=== PATIENT | female | born 1995 | race Caucasian/White ===

== ENCOUNTER 2017-01-08 13:32 | Inpatient (IN) | payer BC, MEDICAID ==
--- NOTE | 2017-01-08 14:21 | ED ---
General Adult HPI - General Chief complaint: Psychiatric Symptoms Stated complaint: Suicidal thoughts Time Seen by Provider: 01/08/17 13:47 Source: patient, RN notes reviewed Mode of arrival: ambulatory Limitations: no limitations - History of Present Illness Initial comments: Patient 21-year-old female who presents emergency room today with chief complaint of suicidal ideation. She does admit that she been off her medications for the past 6 months. States she's having thoughts of hurting herself. Cutting. Patient denies any homicidal thoughts or plans. Denies any visual or auditory hallucinations. Denies any other physical. Patient denies any recent fever, chills, shortness of breath, chest pain, back pain, abdominal pain, nausea or vomiting, numbness or tingling, dysuria or hematuria, constipation or diarrhea, headaches or visual changes, or any other complaints. - Related Data Home Medications Medication Instructions Recorded Confirmed No Known Home Medications [No 01/08/17 01/08/17 Known Home Medications] Allergies Allergy/AdvReac Type Severity Reaction Status Date / Time morphine Allergy Rash/Hives Verified 01/08/17 14:41 buspirone HCl [From BuSpar] AdvReac NUMBNESS Verified 01/08/17 14:41 Review of Systems ROS Statement: Those systems with pertinent positive or pertinent negative responses have been documented in the HPI. ROS Other: All systems not noted in ROS Statement are negative. Past Medical History Past Medical History: Asthma, Thyroid Disorder Additional Past Medical History / Comment(s): Mild intermittent asthma, endometriosis, polycystic ovarian syndrome, states had a seizure when going through drug withdrawal; history of opioid addiction, states has scoliosis. History of Any Multi-Drug Resistant Organisms: None Reported Past Surgical History: Orthopedic Surgery Additional Past Surgical History / Comment(s): Laparoscopic ovarian cyst left removal, knee surgery left, Past Psychological History: Anxiety, Bipolar, Depression Smoking Status: Current every day smoker Past Alcohol Use History: None Reported Additional Past Alcohol Use History / Comment(s): She is a smoker of one half pack of cigarettes per day for 6 years. She has history of heroin abuse and has been off for 7-1/2 months. Prior to that she was abusing benzodiazepines and alcohol. Past Drug Use History: None Reported - Past Family History Father Family Medical History: Asthma Additional Family Medical History / Comment(s): Father is alive at age 44 with history of asthma and heart arrhythmia. Mother Family Medical History: Asthma, Deep Vein Thrombosis (DVT), Thyroid Disorder Additional Family Medical History / Comment(s): States she thinks her mother has a history of DVT. Sister(s) Family Medical History: No Reported History Additional Family Medical History / Comment(s): She has 3 sisters with no major medical problems. She does not have any brothers. She does not have any children. General Exam - General Exam Comments Initial Comments: General: The patient is awake and alert, in no distress, and does not appear acutely ill. Eye: Pupils are equal, round and reactive to light, extra-ocular movements are intact. No nystagmus. There is normal conjunctiva bilaterally. No signs of icterus. Ears, nose, mouth and throat: There are moist mucous membranes and no oral lesions. Neck: The neck is supple, there is no tenderness or JVD. Cardiovascular: There is a regular rate and rhythm. No murmur, rub or gallop is appreciated. Respiratory: Lungs are clear to auscultation, respirations are non-labored, breath sounds are equal. No wheezes, stridor, rales, or rhonchi. Musculoskeletal: Normal ROM, no tenderness. Strength 5/5. Sensation intact. Pulses equal bilaterally 2+. Neurological: A&O x 3. CN II-XII intact, There are no obvious motor or sensory deficits. Coordination appears grossly intact. Speech is normal. Skin: Skin is warm and dry and no rashes or lesions are noted. Psychiatric: Cooperative. Limitations: no limitations Course Vital Signs 01/08/17 13:39 Temperature 97.2 F L Pulse Rate 70 Respiratory 20 Rate Blood Pressure 115/77 O2 Sat by Pulse 100 Oximetry Medical Decision Making - Medical Decision Making Patient has been evaluated by mental health and they've recommend the patient be admitted. Patient believes herself. Disposition Clinical Impression: Suicidal ideation Disposition: TRANSFER TO PSYCH HOSP/UNIT Condition: Stable Time of Disposition: 15:30
[2017-01-08 15:44] LABS: Appearance,Urine Cloudy (Clear); Bilirubin,Urine Negative (Negative); Glucose,Urine (UA) Negative (Negative); Ketones,Urine Negative (Negative); Leukocyte Esterase,Urine Negative (Negative); Mucus,Urine Rare /hpf; Nitrite,Urine Negative (Negative); PH, Urine 6.5 (5.0-8.0); Particle Count 4359; Protein,Urine Negative (Negative); RBC,Urine 2 /hpf (0-5); Specific Gravity,Urine 1.013 (1.001-1.035); Squamous Epithelial Cell,Urine 7 /hpf (0-4); UA Billing (MACRO vs. MICRO) MICRO; Urobilinogen,Urine <2.0 mg/dL (<2.0); WBC,Urine 2 /hpf (0-5)
[2017-01-08] MEDS ORDERED: ACETAMINOPHEN TAB 325 MG TAB PO PRN (16:53)
[2017-01-08] MEDS ORDERED: MAG HYDROX/AL HYDROX/SIMETH 30 ML CUP PO PRN (16:53)
[2017-01-08] MEDS: NICOTINE 7MG/24HR PATCH TRANSDERM SCH (19:22)
[2017-01-09] MEDS: GABAPENTIN 100 MG CAP PO SCH ×3 (08:49→21:07)
[2017-01-09] MEDS: ESCITALOPRAM 20 MG TAB PO SCH (08:50)
[2017-01-09] MEDS: hydrOXYzine PAMOATE 25 MG CAP PO PRN ×2 (08:50→23:13)
[2017-01-09] MEDS: NICOTINE 7MG/24HR PATCH TRANSDERM SCH (09:04)
[2017-01-09 09:30] LABS: Aty Lym Flag Slight; CH 30.2; CHCM 33.1; HCT 42.9 % (34.0-46.0); HDW 2.41; HGB 14.2 gm/dL (11.4-16.0); MCH 30.3 pg (25.0-35.0); MCHC 33.2 g/dL (31.0-37.0); MCV 91.5 fL (80.0-100.0); Mean Platelet Volume 6.5; RBC 4.69 m/uL (3.80-5.40); RDW 12.5 % (11.5-15.5); WBC 4.3 k/uL (4.0-11.0)
[2017-01-09 09:49] LABS: ALT 22 U/L (9-52); AST 22 U/L (14-36); Alkaline Phosphatase 39 U/L (38-126); Anion Gap 14 mmol/L; Blood Urea Nitrogen 17 mg/dL (7-17); Calcium 9.9 mg/dL (8.4-10.2); Carbon Dioxide 25 mmol/L (22-30); Chloride 101 mmol/L (98-107); Glucose 96 mg/dL (74-99); Non-African American GFR(MDRD) >60 (>60 ml/min/1.73 sqM); Potassium 4.3 mmol/L (3.5-5.1); Sodium 140 mmol/L (137-145); Total Bilirubin 0.5 mg/dL (0.2-1.3)
[2017-01-09 09:50] LABS: Add Differential Manual Differential
[2017-01-09 09:53] LABS: Manual Review Performed; Nucleated Red Blood Cells 0 /100 WBC (0-0); RBC Morphology Normal; Total Cells Counted 100
[2017-01-09 11:04] VITALS: RESP 18
[2017-01-09] MEDS: NICOTINE POLACRILEX 2 MG GUM BUCCAL PRN ×3 (12:18→20:26)
--- NOTE | 2017-01-09 13:30 | P.CONS ---
History of Present Illness - Reason for Consult Consult date: 01/09/17 Medical management Requesting physician: Misha Bennett - Chief Complaint Severe depression, suicidal ideation, asthma, hypothyroidism, migraine and - History of Present Illness 21-year-old female with no primary care physician who was in the hospital last in January 2016 for severe depression and suicidal ideation has done well since till the last few weeks the patient has been struggling repeatedly with more suicidal ideation and increased depression for financial and social element. Patient have thought about hurting herself cutting herself has not done anything so far denies any hallucination or delusion. Patient presented to the emergency department at [facility] with above symptoms was seen and evaluated by the psych nurse and decided to admit patient to the hospital. Review of Systems Constitutional: Reports fatigue, Reports malaise, Denies as per HPI, Denies anorexia, Denies chills, Denies chronic headaches, Denies chronic pain, Denies daytime sleepiness, Denies fever, Denies lethargy, Denies night sweats, Denies poor appetite, Denies sweats, Denies weakness, Denies weight gain, Denies weight loss Eyes: bilateral as per HPI Ears: deny: decreased hearing Ears, nose, mouth and throat: Denies as per HPI, Denies ant. neck pain, Denies bleeding gums, Denies dental pain, Denies dysphagia, Denies epistaxis, Denies headache, Denies hoarseness, Denies mouth pain, Denies nasal congestion, Denies nasal discharge, Denies neck fullness/pressure, Denies neck lump, Denies nose pain, Denies odynophagia, Denies post-nasal drip, Denies sinus pain, Denies sinus pressure, Denies swelling in mouth, Denies swelling in throat, Denies sore throat, Denies vertigo, Denies voice changes Cardiovascular: Denies as per HPI, Denies chest pain, Denies claudication, Denies decreased exercise tolerance, Denies dyspnea on exertion, Denies edema, Denies high blood pressure, Denies irregular heart beat, Denies leg edema, Denies lightheadedness, Denies orthopnea, Denies palpitations, Denies paroxysmal nocturnal dyspnea, Denies phlebitis, Denies rapid heart beat, Denies shortness of breath, Denies syncope Respiratory: Reports wheezing, Denies as per HPI, Denies congestion, Denies cough, Denies cough with sputum, Denies dyspnea, Denies excessive sputum, Denies hemoptysis, Denies home oxygen, Denies pain, Denies pain on inspiration, Denies pleurisy, Denies respiratory infections, Denies sleep apnea, Denies snoring Gastrointestinal: Reports dyspepsia, Reports indigestion, Reports nausea, Denies as per HPI, Denies abdominal pain, Denies belching, Denies bloating, Denies BRBPR, Denies change in bowel habits, Denies coffee ground emesis, Denies constipation, Denies diarrhea, Denies early satiety, Denies excessive gas , Denies heartburn, Denies hematemesis, Denies hematochezia, Denies jaundice, Denies lactose intolerance, Denies loss of appetite, Denies melena, Denies vomiting Genitourinary: Denies as per HPI, Denies abnormal vaginal bleeding, Denies decreased libido, Denies difficulty conceiving, Denies difficulty voiding, Denies dysmenorrhea, Denies dyspareunia, Denies dysuria, Denies flank pain, Denies genital sores, Denies hematuria, Denies hot flashes, Denies incomplete emptying, Denies kidney stones, Denies menorrhagia, Denies mixed incontinence, Denies nocturia, Denies pelvic pain, Denies post void dribbling, Denies , Denies prolapse symptoms, Denies stress incontinence, Denies urge incontinence , Denies urgency, Denies urinary frequency, Denies vaginal discharge, Denies vaginal dryness, Denies vaginal itching, Denies vaginal odor Menstruation: Denies as per HPI, Denies amenorrhea, Denies amenorrhea on BC, Denies currently menstrual, Denies cycle < 21 days, Denies cycle > 35 days, Denies cycle variable, Denies menses 1-7 days, Denies menses 8 or > days, Denies menses variable, Denies period heavy, Denies period light, Denies period normal, Denies period spotting, Denies post hysterectomy, Denies postmenopausal , Denies premenarcheal Musculoskeletal: Denies as per HPI, Denies arm numbness/tingling, Denies atrophy , Denies fractures, Denies frequent falls, Denies gait dysfunction, Denies hot joints, Denies leg numbness/tingling, Denies limitation of motion, Denies loss of height, Denies low back pain, Denies morning stiffness, Denies muscle cramps , Denies muscle weakness, Denies myalgias, Denies neck pain, Denies neck stiffness, Denies prior amputations, Denies redness of joints, Denies shooting arm pain, Denies shooting leg pain Integumentary: Denies as per HPI, Denies acne, Denies boils, Denies brittle nails, Denies change in hair/nails, Denies color changes, Denies darkening of skin, Denies depigmentation, Denies dryness, Denies foot/leg ulcers, Denies growths, Denies hirsutism, Denies lesions, Denies onychomycosis, Denies pruritus , Denies rash, Denies sores, Denies striae, Denies unusual bruising, Denies wounds Neurological: Denies as per HPI, Denies aphasia, Denies ataxia, Denies balance difficulties, Denies burning pain, Denies change in mentation, Denies change in smell/taste, Denies change in speech, Denies confusion, Denies convulsions, Denies double vision, Denies gait dysfunction, Denies head injury, Denies headaches, Denies hearing difficulties, Denies lack of coordination, Denies loss of vision, Denies memory loss, Denies migraines, Denies motor disturbance, Denies numbness, Denies paralysis, Denies paresthesias, Denies seizures, Denies sensory deficit, Denies spasticity, Denies syncope, Denies tic, Denies tingling , Denies transient paralysis, Denies tremors, Denies vertigo, Denies weakness, Denies visual changes Psychiatric: Reports anhedonia, Reports anxiety, Reports depression, Reports difficulty concentrating, Reports mood swings, Reports paranoia, Reports sadness /tearfulness, Denies as per HPI, Denies anxiety attacks, Denies change in appetite, Denies change in libido, Denies change in sleep habits, Denies confusion, Denies disorientation, Denies hallucinations, Denies hopelessness, Denies hypersomnia, Denies insomnia, Denies irritability, Denies memory loss, Denies sleep disturbances, Denies suicidal ideation Endocrine: Reports excessive sweating, Reports excessive thirst, Reports fatigue , Denies as per HPI, Denies cold intolerance, Denies deepening of the voice, Denies flushing, Denies heat intolerance, Denies high blood sugars, Denies increase in ring/shoe/hat size, Denies low blood sugars, Denies nocturia, Denies palpitations, Denies polydipsia, Denies polyphagia, Denies polyuria, Denies proptosis, Denies recent glucocorticoid use, Denies thyroid mass, Denies weight change Hematologic/Lymphatic: Reports easy bruising, Denies as per HPI, Denies easy bleeding, Denies lymphadenopathy, Denies lymphedema, Denies thrombophilia Allergic/Immunologic: Reports allergic rhinitis, Denies as per HPI, Denies anaphylaxis, Denies angioedema, Denies gluten intolerance, Denies persistent infections, Denies seasonal allergies, Denies urticaria, Denies wheezing Past Medical History Past Medical History: Asthma, Thyroid Disorder Additional Past Medical History / Comment(s): Mild intermittent asthma, endometriosis, polycystic ovarian syndrome, states had a seizure when going through drug withdrawal; history of opioid addiction, states has scoliosis. History of Any Multi-Drug Resistant Organisms: None Reported Past Surgical History: Orthopedic Surgery Additional Past Surgical History / Comment(s): Laparoscopic ovarian cyst left removal, knee surgery left, Past Psychological History: Anxiety, Bipolar, Depression Smoking Status: Current every day smoker Past Alcohol Use History: None Reported Additional Past Alcohol Use History / Comment(s): She is a smoker of one half pack of cigarettes per day for 6 years. She has history of heroin abuse and has been off for 7-1/2 months. Prior to that she was abusing benzodiazepines and alcohol. Past Drug Use History: None Reported - Past Family History Father Family Medical History: Asthma Additional Family Medical History / Comment(s): Father is alive at age 44 with history of asthma and heart arrhythmia. Mother Family Medical History: Asthma, Deep Vein Thrombosis (DVT), Thyroid Disorder Additional Family Medical History / Comment(s): States she thinks her mother has a history of DVT. Sister(s) Family Medical History: No Reported History Additional Family Medical History / Comment(s): She has 3 sisters with no major medical problems. She does not have any brothers. She does not have any children. Medications and Allergies Home Medications Medication Instructions Recorded Confirmed Type No Known Home Medications [No 01/08/17 01/08/17 History Known Home Medications] Allergies Allergy/AdvReac Type Severity Reaction Status Date / Time morphine Allergy Rash/Hives Verified 01/08/17 16:50 buspirone HCl [From BuSpar] AdvReac NUMBNESS Verified 01/08/17 16:50 Physical Exam Vitals: Vital Signs Temp Pulse Pulse Resp BP BP Pulse Ox 01/09/17 11:03 73 18 100/55 01/09/17 06:52 98.2 F 85 16 105/54 01/08/17 15:55 97.6 F 92 16 103/65 98 Intake and Output 01/08/17 01/09/17 01/09/17 22:59 06:59 14:59 Other: Weight 59.5 kg Patient Weight 01/10/17 06:59 Weight 59.5 kg - Constitutional General appearance: no average body habitus, cooperative, no disheveled, no mild distress, no morbidly obese, no no acute distress, no obese, no severe distress, thin - EENT Eyes: no abnormal pupil, no anicteric sclerae, no disc margins sharp, no edentulous, no EOMI, no PERRLA, no fundus normal, no photophobia, no dentition normal, no poor dentition, no ptosis, no scleral icterus, normal appearance ENT: no hard of hearing, no hearing grossly normal, no NA/AT, normal oropharynx , no other, no pharyngeal erythema, no thrush, no tonsillar exudates, no tonsillar swelling Ears: bilateral: normal - Neck Neck: no lymphadenopathy, normal ROM, no other, no rigidity, no stridor, no thyromegaly Carotids: bilateral: upstroke normal Thyroid: bilateral: normal size - Respiratory Respiratory: bilateral: diminished, dullness - Cardiovascular Rhythm: regular Heart sounds: normal: S1, S2 Abnormal Heart Sounds: systolic murmur, S3 Gallop - Gastrointestinal General gastrointestinal: no absent bowel sounds, decreased bowel sounds, no distended, no hepatomegaly, no hyperactive bowel sounds, no normal bowel sounds , no organomegaly, no rigid, no scaphoid, soft, no splenomegaly, no tenderness, no umbilical hernia, no ventral hernia - Integumentary Integumentary: no calor, no cellulitis, no cyanotic, no decreased turgor, no flushed, no jaundiced, normal, no normal turgor, pale, rash, no ulcer - Neurologic Neurologic: CNII-XII intact - Musculoskeletal Musculoskeletal: gait normal, generalized weakness, no strength equal bilaterally, no right sided weakness, no left sided weakness - Psychiatric Psychiatric: A&O x's 3 Results CBC & Chem 7: 01/09/17 08:56 01/09/17 08:56 Assessment and Plan Plan: 1 severe depression and suicidal ideation: Patient was admitted to the hospital seen psych was started on gabapentin along with Lexapro. 2 asthma with no flareup lately no sign and symptoms will continue rescue inhaler as needed. 3 chronic history of migraine with recurrent episode no flareup lately patient was on Inderal previously, she has an appointment with neurology in 2 weeks does 1 a start on any medication in the meanwhile. 4 smoking: Smoking cessation was addressed patient is on Nicorette gum at this point. 5 history of hypothyroidism: Thyroid has been normal with testing this time was normal no need for medication. 6 GERD: Patient be on Pepcid 20 mg as needed. CODE STATUS: Full code. Dr. Bennett thank you very much for the consult more than happy to see this patient along with you if I can be any further help to please let me know thank you.
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
[2017-01-10 00:23] VITALS: BP 132/78; PULSE 88; TEMP 97.6
[2017-01-10] MEDS: ESCITALOPRAM 20 MG TAB PO SCH (08:14)
[2017-01-10] MEDS: GABAPENTIN 100 MG CAP PO SCH (08:15)
[2017-01-10] MEDS ORDERED: FAMOTIDINE 20 MG TAB PO SCH (09:00)
[2017-01-10] MEDS: NICOTINE POLACRILEX 2 MG GUM BUCCAL PRN ×2 (09:09→12:19)
[2017-01-10 10:19] VITALS: BMI 22.5
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
== END 2017-01-10 13:01 | disposition home or self-care (01) | DRG 885 ==
LOC: EC 13:32 → 3MHU 15:48
PROVIDERS: ADMIT Psychiatry & Neurology Psychiatry; ATTEND Psychiatry & Neurology Psychiatry
DX: F33.9 Major depressive disorder, recurrent, unspecified (principal); R45.851 Suicidal ideations; M41.9 Scoliosis, unspecified; F43.10 Post-traumatic stress disorder, unspecified; F60.3 Borderline personality disorder; F90.9 Attention-deficit hyperactivity disorder, unspecified type; F41.0 Panic disorder [episodic paroxysmal anxiety]; F16.99 Hallucinogen use, unspecified with unspecified hallucinogen-induced disorder; F11.29 Opioid dependence with unspecified opioid-induced disorder; F12.99 Cannabis use, unspecified with unspecified cannabis-induced disorder; J45.20 Mild intermittent asthma, uncomplicated; F41.9 Anxiety disorder, unspecified; F19.99 Other psychoactive substance use, unspecified with unspecified psychoactive substance-induced disorder; S50.812A Abrasion of left forearm, initial encounter; E28.2 Polycystic ovarian syndrome; N80.9 Endometriosis, unspecified; K21.9 Gastro-esophageal reflux disease without esophagitis; T42.6X6A Underdosing of other antiepileptic and sedative-hypnotic drugs, initial encounter; T43.226A Underdosing of selective serotonin reuptake inhibitors, initial encounter; E03.9 Hypothyroidism, unspecified; G43.909 Migraine, unspecified, not intractable, without status migrainosus; M79.7 Fibromyalgia; F17.210 Nicotine dependence, cigarettes, uncomplicated; Z71.6 Tobacco abuse counseling; Z71.51 Drug abuse counseling and surveillance of drug abuser; Z56.0 Unemployment, unspecified; Z62.810 Personal history of physical and sexual abuse in childhood; Z87.42 Personal history of other diseases of the female genital tract; Z86.69 Personal history of other diseases of the nervous system and sense organs; Z91.5 Personal history of self-harm; Z82.5 Family history of asthma and other chronic lower respiratory diseases; Z63.79 Other stressful life events affecting family and household; Z62.820 Parent-biological child conflict; Z81.1 Family history of alcohol abuse and dependence; Z82.49 Family history of ischemic heart disease and other diseases of the circulatory system; Z83.49 Family history of other endocrine, nutritional and metabolic diseases; Z88.5 Allergy status to narcotic agent; Z88.8 Allergy status to other drugs, medicaments and biological substances; Z91.14 Patient's other noncompliance with medication regimen; X78.9XXA Intentional self-harm by unspecified sharp object, initial encounter
CPT/HCPCS: 80053; 80306; 81001; 81025; 84443; 85025; 99285

== ENCOUNTER 2017-03-12 03:38 | Emergency (ER) | payer BC, OTHER ==
[2017-03-12] MEDS ORDERED: CIPROFLOXACIN HCL 500 MG TAB PO STA (04:10)
[2017-03-12] MEDS ORDERED: IBUPROFEN 600 MG TAB PO STA (04:10)
[2017-03-12 04:29] LABS: Appearance,Urine Cloudy (Clear); Bilirubin,Urine Negative (Negative); Glucose,Urine (UA) Negative (Negative); Ketones,Urine Negative (Negative); Leukocyte Esterase,Urine Large (Negative); Mucus,Urine Rare /hpf; Nitrite,Urine Negative (Negative); Particle Count 9073; Protein,Urine 1+ (Negative); RBC,Urine 68 /hpf (0-5); Specific Gravity,Urine 1.011 (1.001-1.035); Squamous Epithelial Cell,Urine 1 /hpf (0-4); UA Billing (MACRO vs. MICRO) MICRO; Urobilinogen,Urine <2.0 mg/dL (<2.0); WBC,Urine 179 /hpf (0-5)
--- NOTE | 2017-03-12 05:05 | ED ---
Abdominal Pain HPI - General Chief Complaint: Abdominal Pain Stated Complaint: Back Pain Time Seen by Provider: 03/12/17 04:01 Source: patient Mode of arrival: wheelchair Limitations: no limitations - History of Present Illness Initial Comments: This patient is a 21-year-old woman who presents with concern that she believes she is having urinary tract infection. She states that she has had previous urinary tract infections that remind her of the symptoms she is having now. She states that nearly a week ago she began feeling that she had to use the bathroom all the time. She also noted a little bit of suprapubic pressure. She started also having a little bit of dysuria over the past few days and presents because over the past few hours she has started developing left flank pain. Patient denies fever or chills. She is not having any change in bowel movements. No vaginal discharge or dyspareunia. MD Complaint: abdominal pain, flank pain -: days(s) Location: suprapubic, L flank Radiation: none Migration to: no migration Severity: moderate Quality: aching Consistency: constant Improves With: nothing Worsens With: nothing Associated Symptoms: dysuria - Related Data Home Medications Medication Instructions Recorded Confirmed Propranolol LA [Inderal LA] 60 mg PO DAILY 03/12/17 03/12/17 Previous Rx's Medication Instructions Recorded Escitalopram [Lexapro] 20 mg PO DAILY #30 tab 01/10/17 Gabapentin [Neurontin] 100 mg PO TID #45 cap 01/10/17 hydrOXYzine PAMOATE [Vistaril] 25 mg PO DAILY PRN #30 capsule 01/10/17 Ciprofloxacin HCl [Cipro] 500 mg PO Q12HR #14 tablet 03/12/17 Allergies Allergy/AdvReac Type Severity Reaction Status Date / Time morphine Allergy Rash/Hives Verified 03/02/17 19:00 buspirone HCl [From BuSpar] AdvReac NUMBNESS Verified 03/02/17 19:00 Review of Systems ROS Statement: Those systems with pertinent positive or pertinent negative responses have been documented in the HPI. ROS Other: All systems not noted in ROS Statement are negative. Constitutional: Denies: fever, chills Respiratory: Denies: cough, dyspnea Cardiovascular: Denies: chest pain, palpitations, edema Gastrointestinal: Reports: abdominal pain. Denies: nausea, vomiting, diarrhea, melena, hematochezia Genitourinary: Reports: as per HPI, urgency, dysuria, hematuria. Denies: discharge, abnormal menses, dyspareunia Musculoskeletal: Reports: as per HPI, back pain Skin: Denies: rash Neurological: Denies: headache Past Medical History Past Medical History: Asthma, Thyroid Disorder Additional Past Medical History / Comment(s): Mild intermittent asthma, endometriosis, polycystic ovarian syndrome, states had a seizure when going through drug withdrawal; history of opioid addiction, states has scoliosis. History of Any Multi-Drug Resistant Organisms: None Reported Past Surgical History: Orthopedic Surgery Additional Past Surgical History / Comment(s): Laparoscopic ovarian cyst left removal, knee surgery left, Past Psychological History: Anxiety, Bipolar, Depression Smoking Status: Current every day smoker Past Alcohol Use History: None Reported Additional Past Alcohol Use History / Comment(s): She is a smoker of one half pack of cigarettes per day for 6 years. She has history of heroin abuse and has been off for 7-1/2 months. Prior to that she was abusing benzodiazepines and alcohol. Past Drug Use History: None Reported - Past Family History Father Family Medical History: Asthma Additional Family Medical History / Comment(s): Father is alive at age 44 with history of asthma and heart arrhythmia. Mother Family Medical History: Asthma, Deep Vein Thrombosis (DVT), Thyroid Disorder Additional Family Medical History / Comment(s): States she thinks her mother has a history of DVT. Sister(s) Family Medical History: No Reported History Additional Family Medical History / Comment(s): She has 3 sisters with no major medical problems. She does not have any brothers. She does not have any children. General Exam Limitations: no limitations General appearance: alert, in no apparent distress Head exam: Present: atraumatic, normocephalic Respiratory exam: Present: normal lung sounds bilaterally. Absent: respiratory distress, wheezes, rales, rhonchi, stridor Cardiovascular Exam: Present: regular rate, normal rhythm, normal heart sounds. Absent: systolic murmur, diastolic murmur, rubs, gallop GI/Abdominal exam: Present: soft, normal bowel sounds. Absent: distended, tenderness, guarding, rebound, rigid, mass, pulsatile mass Extremities exam: Present: normal inspection, normal capillary refill. Absent: pedal edema, calf tenderness Back exam: Present: normal inspection. Absent: CVA tenderness (R), CVA tenderness (L) Neurological exam: Present: alert Skin exam: Present: warm, dry, intact, normal color. Absent: rash Course Vital Signs 03/12/17 03/12/17 03:49 05:24 Temperature 97.9 F 97.6 F Pulse Rate 75 76 Respiratory 18 16 Rate Blood Pressure 105/55 108/57 O2 Sat by Pulse 98 98 Oximetry Medical Decision Making - Lab Data Lab Results 03/12/17 03/12/17 Range/Units 04:18 04:18 Urine Color Yellow Urine Appearance Cloudy H (Clear) Urine pH 7.0 (5.0-8.0) Ur Specific [place] 1.011 (1.001-1.035) Urine Protein 1+ H (Negative) Urine Glucose (UA) Negative (Negative) Urine Ketones Negative (Negative) Urine Blood Moderate H (Negative) Urine Nitrite Negative (Negative) Urine Bilirubin Negative (Negative) Urine Urobilinogen <2.0 (<2.0) mg/dL Ur Leukocyte Esterase Large H (Negative) Urine RBC 68 H (0-5) /hpf Urine WBC 179 H (0-5) /hpf Urine WBC Clumps Many H (None) /hpf Ur Squamous Epith Cells 1 (0-4) /hpf Urine Mucus Rare H (None) /hpf Urine HCG, Qual Not Detected (Not Detectd) Disposition Clinical Impression: Urinary tract infection Disposition: HOME SELF-CARE Condition: Fair Instructions: Urinary Tract Infection in Women (ED) Prescriptions: Ciprofloxacin HCl [Cipro] 500 mg PO Q12HR #14 tablet Referrals: Monica Cage MD [Primary Care Provider] - 1-2 days
[2017-03-12 05:26] VITALS: BP 108/57; PULSE 76; RESP 16; TEMP 97.6
== END 2017-03-12 05:26 | disposition home or self-care (01) ==
LOC: EC 03:38
DX: N39.0 Urinary tract infection, site not specified (principal); F17.210 Nicotine dependence, cigarettes, uncomplicated; Z79.899 Other long term (current) drug therapy; Z88.5 Allergy status to narcotic agent; Z88.8 Allergy status to other drugs, medicaments and biological substances
CPT/HCPCS: 81001; 81025; 99284

== ENCOUNTER 2017-04-29 18:20 | Emergency (ER) | payer BC, OTHER ==
[2017-04-29 18:32] VITALS: BP 126/70; PULSE 87; RESP 18; TEMP 97.8
[2017-04-29] MEDS ORDERED: DICYCLOMINE 10 MG/ML 2 ML AMP IM STA (18:43)
[2017-04-29] MEDS ORDERED: ONDANSETRON ODT 4 MG TAB PO STA (18:43)
--- NOTE | 2017-04-29 18:47 | ED ---
Nausea/Vomiting/Diarrhea HPI - General Chief complaint: Nausea/Vomiting/Diarrhea Stated complaint: POSS FOOD POISENING Time Seen by Provider: 04/29/17 18:34 Source: patient, RN notes reviewed Mode of arrival: ambulatory Limitations: no limitations - History of Present Illness Initial comments: 21-year-old female presents emergency Department chief complaint of nausea vomiting and diarrhea that started 2 hours ago. Patient states that last night they went to [employer] and she denied her hamburger so she put it in her purse. Patient states that she drove around for about 2-3 hours when she got home she put it in the fridge. Patient states when she woke up this morning she ate a hamburger and a few hours later she started nausea vomiting and diarrhea. Patient states that her abdomen feels crampy. Patient denies any fever or chills. Patient states that she's not currently having any other symptoms. Patient states that she was concerned due to the vomiting and diarrhea so she thought that she should be evaluated. Patient denies any recent fever, chills, shortness of breath, chest pain, back pain, numbness or tingling , dysuria or hematuria, constipation, headaches or visual changes, or any other current symptoms. - Related Data Home Medications Medication Instructions Recorded Confirmed Propranolol LA [Inderal LA] 60 mg PO DAILY 03/12/17 03/12/17 Previous Rx's Medication Instructions Recorded Escitalopram [Lexapro] 20 mg PO DAILY #30 tab 01/10/17 Gabapentin [Neurontin] 100 mg PO TID #45 cap 01/10/17 hydrOXYzine PAMOATE [Vistaril] 25 mg PO DAILY PRN #30 capsule 01/10/17 Ciprofloxacin HCl [Cipro] 500 mg PO Q12HR #14 tablet 03/12/17 Dicyclomine [Bentyl] 10 mg PO TID #20 capsule 04/29/17 Ondansetron Odt [Zofran ODT] 4 mg PO Q8HR PRN #20 tab 04/29/17 Allergies Allergy/AdvReac Type Severity Reaction Status Date / Time morphine Allergy Rash/Hives Verified 03/02/17 19:00 buspirone HCl [From BuSpar] AdvReac NUMBNESS Verified 03/02/17 19:00 Review of Systems ROS Statement: Those systems with pertinent positive or pertinent negative responses have been documented in the HPI. ROS Other: All systems not noted in ROS Statement are negative. Past Medical History Past Medical History: Asthma, Thyroid Disorder Additional Past Medical History / Comment(s): Mild intermittent asthma, endometriosis, polycystic ovarian syndrome, states had a seizure when going through drug withdrawal; history of opioid addiction, states has scoliosis. History of Any Multi-Drug Resistant Organisms: None Reported Past Surgical History: Orthopedic Surgery Additional Past Surgical History / Comment(s): Laparoscopic ovarian cyst left removal, knee surgery left, Past Psychological History: Anxiety, Bipolar, Depression Smoking Status: Current every day smoker Past Alcohol Use History: None Reported, Rare Past Drug Use History: None Reported - Past Family History Father Family Medical History: Asthma Additional Family Medical History / Comment(s): Father is alive at age 44 with history of asthma and heart arrhythmia. Mother Family Medical History: Asthma, Deep Vein Thrombosis (DVT), Thyroid Disorder Additional Family Medical History / Comment(s): States she thinks her mother has a history of DVT. Sister(s) Family Medical History: No Reported History Additional Family Medical History / Comment(s): She has 3 sisters with no major medical problems. She does not have any brothers. She does not have any children. General Exam Limitations: no limitations General appearance: alert, in no apparent distress ENT exam: Present: normal exam, mucous membranes moist Neck exam: Present: normal inspection. Absent: tenderness, meningismus, lymphadenopathy Respiratory exam: Present: normal lung sounds bilaterally. Absent: respiratory distress, wheezes, rales, rhonchi, stridor Cardiovascular Exam: Present: regular rate, normal rhythm, normal heart sounds. Absent: systolic murmur, diastolic murmur, rubs, gallop, clicks GI/Abdominal exam: Present: soft, normal bowel sounds. Absent: distended, tenderness, guarding, rebound, rigid Neurological exam: Present: alert, oriented X3 Psychiatric exam: Present: normal affect, normal mood Skin exam: Present: warm, dry, intact, normal color. Absent: rash Course Vital Signs 04/29/17 18:26 Temperature 97.8 F Pulse Rate 87 Respiratory 18 Rate Blood Pressure 126/70 O2 Sat by Pulse 99 Oximetry Medical Decision Making - Medical Decision Making 21-year-old female presents to the emergency Department chief complaint of nausea vomiting and diarrhea. This patient's vital signs are stable. Patient' s history is consistent with concern for gastroenteritis. We did discuss is other cause he did discuss return parameters discussed follow-up and all the patient's questions. They state Felice they're in agreement with plan. They will be discharged home. Disposition Clinical Impression: Nausea & vomiting, Diarrhea Disposition: HOME SELF-CARE Condition: Stable Instructions: Acute Nausea and Vomiting (ED) Additional Instructions: Please use medication as discussed. Please follow up with family doctor if symptoms have not improved over the next two days. Please return to the emergency room if your symptoms increase or worsen or for any other concerns. Prescriptions: Dicyclomine [Bentyl] 10 mg PO TID #20 capsule Ondansetron Odt [Zofran ODT] 4 mg PO Q8HR PRN #20 tab PRN Reason: Nausea Referrals: Jackie Dawson MD [Primary Care Provider] - 1-2 days Time of Disposition: 18:46
== END 2017-04-29 19:09 | disposition home or self-care (01) ==
LOC: EC 18:20
DX: R11.2 Nausea with vomiting, unspecified (principal); R19.7 Diarrhea, unspecified; R10.9 Unspecified abdominal pain; F17.200 Nicotine dependence, unspecified, uncomplicated; Z79.899 Other long term (current) drug therapy; Z88.5 Allergy status to narcotic agent; Z88.8 Allergy status to other drugs, medicaments and biological substances
CPT/HCPCS: 99283; 96372; J0500

== ENCOUNTER 2017-06-18 11:50 | Emergency (ER) | payer BC, OTHER ==
[2017-06-18] MEDS ORDERED: KETOROLAC 30 MG/ML 1 ML VIAL IVP STA (12:41)
[2017-06-18] MEDS ORDERED: SODIUM CHLORIDE 0.9% 500 ML IV STA (12:41)
--- NOTE | 2017-06-18 12:45 | ED ---
General Adult HPI - General Chief complaint: Abdominal Pain Stated complaint: Lower abdominal pain Time Seen by Provider: 06/18/17 12:00 Source: patient, RN notes reviewed Mode of arrival: ambulatory Limitations: no limitations - History of Present Illness Initial comments: This is a 21-year-old female presents emergency Department complaining that she has had left lower quadrant abdominal pain for a week and a half. Patient states she is scheduled for an ultrasound later in the week but she states the pain was getting too bad so she decided to come the emergency department. Patient denies any dysuria hematuria urinary frequency. Patient states she is not . Patient states she's been having sex only with her boyfriend for the last 2 years. Patient states she hasn't had sex in the last 2 weeks because of the pain. Patient denies any fever or chills. Patient denies any nausea vomiting diarrhea. Patient denies any back pain. Patient states she has a history of ovarian cyst - Related Data Home Medications Medication Instructions Recorded Confirmed Albuterol Inhaler [Ventolin Hfa 1 - 2 puff INHALATION RT-Q6H PRN 06/18/17 Inhaler] Ergocalciferol (Vitamin D2) 50,000 unit PO SA 06/18/17 06/18/17 [Vitamin D2] Previous Rx's Medication Instructions Recorded Escitalopram [Lexapro] 20 mg PO DAILY #30 tab 01/10/17 hydrOXYzine PAMOATE [Vistaril] 25 mg PO DAILY PRN #30 capsule 01/10/17 Hydrocodone/Acetaminophen [Termo 1 each PO Q6HR PRN #10 tab 06/18/17 5-325] Allergies Allergy/AdvReac Type Severity Reaction Status Date / Time morphine Allergy Rash/Hives Verified 06/18/17 12:52 buspirone HCl [From BuSpar] AdvReac NUMBNESS Verified 06/18/17 12:52 Review of Systems ROS Statement: Those systems with pertinent positive or pertinent negative responses have been documented in the HPI. ROS Other: All systems not noted in ROS Statement are negative. Past Medical History Past Medical History: Asthma, Thyroid Disorder Additional Past Medical History / Comment(s): Mild intermittent asthma, endometriosis, polycystic ovarian syndrome, states had a seizure when going through drug withdrawal; history of opioid addiction, states has scoliosis. History of Any Multi-Drug Resistant Organisms: None Reported Past Surgical History: Orthopedic Surgery Additional Past Surgical History / Comment(s): Laparoscopic ovarian cyst left removal, knee surgery left, Past Psychological History: Anxiety, Bipolar, Depression Smoking Status: Current every day smoker Past Alcohol Use History: None Reported, Rare Past Drug Use History: None Reported - Past Family History Father Family Medical History: Asthma Additional Family Medical History / Comment(s): Father is alive at age 44 with history of asthma and heart arrhythmia. Mother Family Medical History: Asthma, Deep Vein Thrombosis (DVT), Thyroid Disorder Additional Family Medical History / Comment(s): States she thinks her mother has a history of DVT. Sister(s) Family Medical History: No Reported History Additional Family Medical History / Comment(s): She has 3 sisters with no major medical problems. She does not have any brothers. She does not have any children. General Exam - General Exam Comments Initial Comments: GENERAL: Patient is well-developed and well-nourished. Patient is nontoxic and well- hydrated and is in mild distress. ENT: Neck is soft and supple. No significant lymphadenopathy is noted. Oropharynx is clear. Moist mucous membranes. Neck has full range of motion without eliciting any pain. EYES: The sclera were anicteric and conjunctiva were pink and moist. Extraocular movements were intact and pupils were equal round and reactive to light. Eyelids were unremarkable. PULMONARY: Unlabored respirations. Good breath sounds bilaterally. No audible rales rhonchi or wheezing was noted. CARDIOVASCULAR: There is a regular rate and rhythm without any murmurs gallops or rubs. ABDOMEN: Patient's left lower quadrant abdominal pain. No palpable organomegaly was noted. There is no palpable pulsatile mass. SKIN: Skin is clear with no lesions or rashes and otherwise unremarkable. NEUROLOGIC: Patient is alert and oriented x3. Cranial nerves II through XII are grossly intact. Motor and sensory are also intact. Normal speech, volume and content. Symmetrical smile. MUSCULOSKELETAL: Normal extremities with adequate strength and full range of motion. No lower extremity swelling or edema. No calf tenderness. LYMPHATICS: No significant lymphadenopathy is noted PSYCHIATRIC: Normal psychiatric evaluation. Normal interpersonal interactions appears functionally intact in deals appropriately with others. No signs of depression. No signs of anxiety. Limitations: no limitations Course Vital Signs 06/18/17 06/18/17 12:17 13:50 Temperature 97.2 F L Pulse Rate 109 H 88 Respiratory 18 16 Rate Blood Pressure 128/70 112/61 O2 Sat by Pulse 100 99 Oximetry Medical Decision Making - Medical Decision Making Ultrasound shows a left ovarian cyst that appears to be hemorrhagic in nature. There is no torsion at this time. - Lab Data Result diagrams: 06/18/17 12:40 06/18/17 12:40 Lab Results 06/18/17 06/18/17 06/18/17 Range/Units 12:40 12:40 12:40 WBC 7.0 (4.0-11.0) k/uL RBC 4.69 (3.80-5.40) m/uL Hgb 14.3 (11.4-16.0) gm/dL Hct 42.6 (34.0-46.0) % MCV 90.8 (80.0-100.0) fL MCH 30.4 (25.0-35.0) pg MCHC 33.5 (31.0-37.0) g/dL RDW 13.9 (11.5-15.5) % Plt Count 302 (150-450) k/uL Neutrophils % 48 % Lymphocytes % 39 % Monocytes % 7 % Eosinophils % 1 % Basophils % 1 % Neutrophils # 3.4 (1.3-7.7) k/uL Lymphocytes # 2.8 (1.0-4.8) k/uL Monocytes # 0.5 (0-1.0) k/uL Eosinophils # 0.1 (0-0.7) k/uL Basophils # 0.1 (0-0.2) k/uL Sodium 139 (137-145) mmol/L Potassium 4.3 (3.5-5.1) mmol/L Chloride 105 (98-107) mmol/L Carbon Dioxide 25 (22-30) mmol/L Anion Gap 9 mmol/L BUN 15 (7-17) mg/dL Creatinine 0.68 (0.52-1.04) mg/dL Est GFR (MDRD) Af Amer >60 (>60 ml/min/1.73 sqM) Est GFR (MDRD) Non-Af >60 (>60 ml/min/1.73 sqM) Glucose 67 L (74-99) mg/dL Calcium 9.7 (8.4-10.2) mg/dL Total Bilirubin 0.2 (0.2-1.3) mg/dL AST 22 (14-36) U/L ALT 28 (9-52) U/L Alkaline Phosphatase 42 (38-126) U/L Total Protein 6.9 (6.3-8.2) g/dL Albumin 4.3 (3.5-5.0) g/dL Amylase 53 (30-110) U/L Lipase 136 (23-300) U/L Urine Color Urine Appearance (Clear) Urine pH (5.0-8.0) Ur Specific [place] (1.001-1.035) Urine Protein (Negative) Urine Glucose (UA) (Negative) Urine Ketones (Negative) Urine Blood (Negative) Urine Nitrite (Negative) Urine Bilirubin (Negative) Urine Urobilinogen (<2.0) mg/dL Ur Leukocyte Esterase (Negative) Urine HCG, Qual (Not Detectd) Urine Opiates Screen Not Detected (NotDetected) Ur Oxycodone Screen Not Detected (NotDetected) Urine Methadone Screen Not Detected (NotDetected) Ur Propoxyphene Screen Not Detected (NotDetected) Ur Barbiturates Screen Not Detected (NotDetected) U Tricyclic Antidepress Not Detected (NotDetected) Ur Phencyclidine Scrn Not Detected (NotDetected) Ur Amphetamines Screen Not Detected (NotDetected) U Methamphetamines Scrn Not Detected (NotDetected) U Benzodiazepines Scrn Not Detected (NotDetected) Urine Cocaine Screen Not Detected (NotDetected) U Marijuana (THC) Screen Not Detected (NotDetected) 06/18/17 06/18/17 Range/Units 12:40 12:40 WBC (4.0-11.0) k/uL RBC (3.80-5.40) m/uL Hgb (11.4-16.0) gm/dL Hct (34.0-46.0) % MCV (80.0-100.0) fL MCH (25.0-35.0) pg MCHC (31.0-37.0) g/dL RDW (11.5-15.5) % Plt Count (150-450) k/uL Neutrophils % % Lymphocytes % % Monocytes % % Eosinophils % % Basophils % % Neutrophils # (1.3-7.7) k/uL Lymphocytes # (1.0-4.8) k/uL Monocytes # (0-1.0) k/uL Eosinophils # (0-0.7) k/uL Basophils # (0-0.2) k/uL Sodium (137-145) mmol/L Potassium (3.5-5.1) mmol/L Chloride (98-107) mmol/L Carbon Dioxide (22-30) mmol/L Anion Gap mmol/L BUN (7-17) mg/dL Creatinine (0.52-1.04) mg/dL Est GFR (MDRD) Af Amer (>60 ml/min/1.73 sqM) Est GFR (MDRD) Non-Af (>60 ml/min/1.73 sqM) Glucose (74-99) mg/dL Calcium (8.4-10.2) mg/dL Total Bilirubin (0.2-1.3) mg/dL AST (14-36) U/L ALT (9-52) U/L Alkaline Phosphatase (38-126) U/L Total Protein (6.3-8.2) g/dL Albumin (3.5-5.0) g/dL Amylase (30-110) U/L Lipase (23-300) U/L Urine Color Light Yellow Urine Appearance Clear (Clear) Urine pH 6.0 (5.0-8.0) Ur Specific [place] 1.006 (1.001-1.035) Urine Protein Negative (Negative) Urine Glucose (UA) Negative (Negative) Urine Ketones Negative (Negative) Urine Blood Negative (Negative) Urine Nitrite Negative (Negative) Urine Bilirubin Negative (Negative) Urine Urobilinogen <2.0 (<2.0) mg/dL Ur Leukocyte Esterase Negative (Negative) Urine HCG, Qual Not Detected (Not Detectd) Urine Opiates Screen (NotDetected) Ur Oxycodone Screen (NotDetected) Urine Methadone Screen (NotDetected) Ur Propoxyphene Screen (NotDetected) Ur Barbiturates Screen (NotDetected) U Tricyclic Antidepress (NotDetected) Ur Phencyclidine Scrn (NotDetected) Ur Amphetamines Screen (NotDetected) U Methamphetamines Scrn (NotDetected) U Benzodiazepines Scrn (NotDetected) Urine Cocaine Screen (NotDetected) U Marijuana (THC) Screen (NotDetected) Disposition Clinical Impression: Hemorrhagic ovarian cyst Disposition: HOME SELF-CARE Condition: Good Instructions: Ovarian Cyst (ED) Additional Instructions: Patient should follow-up with Dr. Preston as soon as possible Prescriptions: Hydrocodone/Acetaminophen [Termo 5-325] 1 each PO Q6HR PRN #10 tab PRN Reason: Pain Time of Disposition: 14:43
[2017-06-18 13:03] LABS: Basophils # (A) 0.1 k/uL (0-0.2); Basophils % (A) 1 %; CH 30.7; CHCM 33.9; Eosinophils # (A) 0.1 k/uL (0-0.7); Eosinophils % (A) 1 %; HCT 42.6 % (34.0-46.0); HDW 2.38; HGB 14.3 gm/dL (11.4-16.0); Luc # (Auto) 0.22; Luc % (Auto) 3; Lymphocytes # (A) 2.8 k/uL (1.0-4.8); Lymphocytes % (A) 39 %; MCH 30.4 pg (25.0-35.0); MCHC 33.5 g/dL (31.0-37.0); MCV 90.8 fL (80.0-100.0); Monocytes # (A) 0.5 k/uL (0-1.0); Monocytes % (A) 7 %; Neutrophils # (A) 3.4 k/uL (1.3-7.7); Neutrophils % (A) 48 %; RBC 4.69 m/uL (3.80-5.40); RDW 13.9 % (11.5-15.5); WBC (Perox) 6.91
[2017-06-18 13:06] LABS: Appearance,Urine Clear (Clear); Bilirubin,Urine Negative (Negative); Glucose,Urine (UA) Negative (Negative); Ketones,Urine Negative (Negative); Leukocyte Esterase,Urine Negative (Negative); Nitrite,Urine Negative (Negative); Protein,Urine Negative (Negative); Specific Gravity,Urine 1.006 (1.001-1.035); UA Billing (MACRO vs. MICRO) CHEM; Urobilinogen,Urine <2.0 mg/dL (<2.0)
[2017-06-18 13:20] LABS: ALT 28 U/L (9-52); AST 22 U/L (14-36); Alkaline Phosphatase 42 U/L (38-126); Amylase 53 U/L (30-110); Anion Gap 9 mmol/L; Blood Urea Nitrogen 15 mg/dL (7-17); Calcium 9.7 mg/dL (8.4-10.2); Carbon Dioxide 25 mmol/L (22-30); Chloride 105 mmol/L (98-107); Glucose 67 mg/dL (74-99); Non-African American GFR(MDRD) >60 (>60 ml/min/1.73 sqM); Potassium 4.3 mmol/L (3.5-5.1); Sodium 139 mmol/L (137-145); Total Bilirubin 0.2 mg/dL (0.2-1.3); Total Protein 6.9 g/dL (6.3-8.2)
[2017-06-18] MEDS ORDERED: traMADol 50 MG TAB PO STA (13:35)
--- NOTE | 2017-06-18 14:34 | US ---
EXAMINATION TYPE: US transvaginal plus Dopplers DATE OF EXAM: 06/18/2017 COMPARISON: 05/17/2016. CLINICAL HISTORY: 21-year-old female Pain. LLQ pain, irregular cycles TECHNIQUE: Transvaginal (TV). Color Doppler and spectral waveform analysis of the ovarian arteries a nd veins. Date of LMP: 05/17/2017 FINDINGS: Uterus: Anteverted measuring 7.1 x 4.0 x 4.6 cm Endometrial Stripe: 1.1 cm. The IUD has been removed since the prior 05/17/2016 exam. Right Ovary: 3.4 x 1.9 x 1.7 cm for a volume of 6.5 mL. Follicular changes present. There is satisfa ctory arterial and venous flow. Left Ovary: 4.4 x 4.9 x 4.8 cm and largest at 67 mL. This is secondary to a 4.3 cm thick rind comple x cyst with internal low-level echoes. No internal vascularity. This appears to be exophytic from the majority of the more normal-appearing ovary. This shows satisfactory arterial and venous flow. Otherwise, no evident adnexal abnormality or cul-de-sac free fluid. IMPRESSION: 1. No sonographic evidence for ovarian torsion. 2. However, there is a large 4.3 cm complex cyst exophytic from the left ovary. This has a thick rind and internal low-level echoes. A hemorrhagic cyst is favored. Recommend follow-up in 6-8 weeks to en sure resolution and exclude a cystic epithelial neoplasm.
[2017-06-18 14:51] VITALS: BP 111/61; PULSE 87; RESP 14; TEMP 98.2
== END 2017-06-18 14:53 | disposition home or self-care (01) ==
LOC: EC 11:50
DX: N83.202 Unspecified ovarian cyst, left side (principal); F17.200 Nicotine dependence, unspecified, uncomplicated; Z79.899 Other long term (current) drug therapy; Z88.5 Allergy status to narcotic agent; Z88.8 Allergy status to other drugs, medicaments and biological substances
CPT/HCPCS: 36415; 80053; 82150; 83690; 85025; 81003; 81025; 80306; 93975; 76830; 99284; 96374; 96361; J1885

== ENCOUNTER → 2017-06-30 | Outpatient (CLI) | payer BC, OTHER ==
[2017-06-30 15:30] LABS: Basophils # (A) 0.1 k/uL (0-0.2); Basophils % (A) 1 %; CH 30.6; CHCM 33.7; Eosinophils # (A) 0.2 k/uL (0-0.7); Eosinophils % (A) 3 %; HCT 43.1 % (34.0-46.0); HDW 2.37; Luc # (Auto) 0.25; Luc % (Auto) 4; Lymphocytes % (A) 49 %; MCH 29.5 pg (25.0-35.0); MCHC 32.4 g/dL (31.0-37.0); MCV 91.3 fL (80.0-100.0); Monocytes # (A) 0.3 k/uL (0-1.0); Monocytes % (A) 5 %; Neutrophils # (A) 2.4 k/uL (1.3-7.7); Neutrophils % (A) 38 %; RBC 4.73 m/uL (3.80-5.40); RDW 14.1 % (11.5-15.5); WBC 6.2 k/uL (3.8-10.6); WBC (Perox) 6.04
== END | disposition home or self-care (01) ==
LOC: LABPAT 15:11
PROVIDERS: ATTEND Obstetrics & Gynecology
DX: Z01.812 Encounter for preprocedural laboratory examination (principal)
CPT/HCPCS: 36415; 85025

== ENCOUNTER 2017-07-13 06:55 | Day surgery (SDC) | payer BC, OTHER ==
[2017-07-12 08:21] VITALS: BMI 23.3
[~2017-07-13 06:55] MED LIST: DEXAMETHASONE SOD PHOSPHATE 10 MG/ML 1 ML VIAL IV ONE; HYDROmorphone 1 MG/ML 1 ML SYRINGE IVP PRN; LACTATED RINGERS 1,000 ML IV SCH; ONDANSETRON 4 MG/2 ML VIAL IVP ONE; Pre Op ABX Message 1 EACH MISC MISCELLANE ONE
[2017-07-13] MEDS ORDERED: LIDOCAINE 1% 20 ML VIAL (10MG/ML) FOR IV START INTRADERMA ONE (07:36)
[2017-07-13] MEDS: MIDAZOLAM 2 MG/2 ML VIAL IV ONE ×2 (07:48→07:57)
--- NOTE | 2017-07-13 07:56 | P.HPOB ---
History of Present Illness H&P Date: 07/13/17 Chief Complaint: Pelvic pain, ovarian cyst 22 year old G0 presents with pelvic pain and ovarian cyst. She has a history of endometriosis and likely has an endometrioma on her ovary. Review of Systems All systems: negative Constitutional: Denies chills, Denies fever Eyes: denies blurred vision, denies pain Ears, nose, mouth and throat: Denies headache, Denies sore throat Cardiovascular: Denies chest pain, Denies shortness of breath Respiratory: Denies cough Gastrointestinal: Denies abdominal pain, Denies diarrhea, Denies nausea, Denies vomiting Genitourinary: Denies dysuria, Denies hematuria Musculoskeletal: Denies myalgias Integumentary: Denies pruritus, Denies rash Neurological: Denies numbness, Denies weakness Psychiatric: Denies anxiety, Denies depression Endocrine: Denies fatigue, Denies weight change Past Medical History Past Medical History: Asthma, Thyroid Disorder Additional Past Medical History / Comment(s): Mild intermittent asthma, endometriosis, polycystic ovarian syndrome, states had a seizure when going through drug withdrawal; history of opioid addiction, states has scoliosis. History of Any Multi-Drug Resistant Organisms: None Reported Past Surgical History: Orthopedic Surgery Additional Past Surgical History / Comment(s): LAPAROSCOPIC REMOVAL LT OVARIAN CYST X 2, knee surgery left, Past Anesthesia/Blood Transfusion Reactions: No Reported Reaction Smoking Status: Current every day smoker - Past Family History Father Family Medical History: Asthma Additional Family Medical History / Comment(s): Father is alive at age 44 with history of asthma and heart arrhythmia. Mother Family Medical History: Asthma, Deep Vein Thrombosis (DVT), Thyroid Disorder Additional Family Medical History / Comment(s): States she thinks her mother has a history of DVT. Sister(s) Family Medical History: No Reported History Additional Family Medical History / Comment(s): She has 3 sisters with no major medical problems. She does not have any brothers. She does not have any children. Medications and Allergies Home Medications Medication Instructions Recorded Confirmed Type Escitalopram [Lexapro] 20 mg PO DAILY #30 tab 01/10/17 07/13/17 Rx hydrOXYzine PAMOATE [Vistaril] 25 mg PO DAILY PRN #30 capsule 01/10/17 07/13/17 Rx Albuterol Inhaler [Ventolin Hfa 1 - 2 puff INHALATION RT-Q6H PRN 06/18/17 History Inhaler] Ergocalciferol (Vitamin D2) 50,000 unit PO SA 06/18/17 07/13/17 History [Vitamin D2] Allergies Allergy/AdvReac Type Severity Reaction Status Date / Time buspirone HCl [From BuSpar] AdvReac NUMBNESS Verified 07/12/17 08:08 Exam Osteopathic Statement: *. No significant issues noted on an osteopathic structural exam other than those noted in the History and Physical/Consult. - Vital Signs Vital signs: Vital Signs Temp Pulse Resp BP Pulse Ox 07/13/17 07:09 98.2 F 100 16 109/72 98 Heart: Regular rate and rhythm Lungs: Clear to auscultation bilaterally Abdomen: Soft, nontender Extremities: Negative Homans sign Assessment and Plan (1) Endometriosis Status: Acute (2) Ovarian cyst Status: Acute Plan: 1. laparoscopy with aspiration of ovarian cyst and cauterization of endometriosis
[2017-07-13] MEDS ORDERED: PROPOFOL 10 MG/ML 20 ML VIAL IV ONE (08:03)
[2017-07-13] MEDS ORDERED: LIDOCAINE 1% INJ 10MG/ML (20 ML MDV) ONE (08:03)
[2017-07-13] MEDS ORDERED: NEOSTIGMINE 1 MG/ML 10 ML VIAL ONE (08:03)
[2017-07-13] MEDS ORDERED: GLYCOPYRROLATE 0.2 MG/ML 2 ML VIAL ONE (08:03)
[2017-07-13] MEDS ORDERED: fentaNYL (PF) 50 MCG/ML 2 ML AMP ONE (08:03)
[2017-07-13] MEDS ORDERED: KETOROLAC 30 MG/ML 1 ML VIAL ONE (08:03)
[2017-07-13] MEDS ORDERED: SUCCINYLCHOLINE CHLORIDE 100 MG/5 ML SYR IV ONE (08:03)
[2017-07-13] MEDS ORDERED: ROCURONIUM BROMIDE 10 MG/ML 10 ML VIAL IV ONE (08:03)
[2017-07-13] MEDS ORDERED: MIDAZOLAM 2 MG/2 ML VIAL ONE (08:03)
[2017-07-13] MEDS ORDERED: BUPIVACAINE (PF) 0.5% 30 ML VIAL SQ ONE ×2 (08:23)
--- NOTE | 2017-07-13 08:52 | P.OP ---
Date of Procedure: 07/13/17 Preoperative Diagnosis: 1. pelvic pain 2. ovarian cyst 3. endometriosis Postoperative Diagnosis: 1.pelvic pain 2. endometriosis 3. pelvic adhesions Procedure(s) Performed: Diagnostic laparoscopy with lysis of adhesions Implants: Anesthesia: DIONEA Surgeon: Lizet Preston Estimated Blood Loss (ml): 2 IV fluids (ml): 200 Urine output (ml): 15 Pathology: none sent Condition: stable Disposition: PACU Indications for Procedure: Operative Findings: There were no cysts seen on either ovary, there were some filmy adhesions surrounding both ovaries and fallopian tubes. There was some endometriosis evident seen in the posterior cul-de-sac. Description of Procedure: She is taken the operating room where general anesthesia was obtained without difficulty. She is prepped and draped in normal sterile fashion dorsal lithotomy position, legs placed in the Harris stirrups. [place] speculum placed in vagina and anterior lip of cervix was grasped with single-tooth tenaculum. The uterus sounded to 8 cm and the kroner manipulator was placed. Attention was then turned to the abdomen and gloves were changed. A 10 mm infraumbilical incision was made with scalpel 10 mm optical trocar was placed under direct visualization. 5 mm suprapubic incision was made with the scalpel and a 5 mm optical trocar was placed under direct visualization. Survey of the pelvis revealed normal uterus and normal fallopian tubes and normal ovaries. There was no cyst seen on either ovary. There was some filmy adhesions surrounding both fallopian tubes and ovaries. There were some adhesions in the posterior cul-de-sac and small amount of endometriosis in the posterior cul-de-sac. These filmy adhesions were taken down using blunt dissection and the cautery. The endometriosis was burned using the cautery. Hemostasis was assured. All instruments were then removed from the abdomen and vagina. The 10 mm infraumbilical incision was closed 0 Vicryl and the fascial layer and 4-0 Vicryl subcuticular fashion and millimeters incision was closed using 4-0 Vicryl subcu clear fashion. Patient tolerated the procedure well sponge and instrument counts are correct at 2 and she was taken to recovery room in stable condition.
[2017-07-13 09:11] VITALS: TEMP 97.2
[2017-07-13] MEDS ORDERED: HYDROmorphone 1 MG/ML 1 ML SYRINGE IVP ONE ×2 (09:21→09:26)
[2017-07-13] MEDS ORDERED: traMADol 50 MG TAB PO ONE (10:04)
[2017-07-13 10:07] VITALS: BP 101/63; PULSE 90; RESP 18
== END 2017-07-13 10:29 | disposition home or self-care (01) ==
LOC: OR 06:55
PROVIDERS: ATTEND Obstetrics & Gynecology
DX: N73.6 Female pelvic peritoneal adhesions (postinfective) (principal); N80.1 Endometriosis of ovary; J45.909 Unspecified asthma, uncomplicated; E07.9 Disorder of thyroid, unspecified; F17.200 Nicotine dependence, unspecified, uncomplicated; F41.9 Anxiety disorder, unspecified; E28.2 Polycystic ovarian syndrome; Z79.899 Other long term (current) drug therapy; Z88.8 Allergy status to other drugs, medicaments and biological substances
CPT/HCPCS: 81025; 58660; J2250; J1100; J2710; J2405; J2001; J3010; J1885; J1170; J0330; J2704

== ENCOUNTER 2017-08-03 12:22 | Inpatient (IN) | payer BC, OTHER ==
[2017-08-03] MEDS ORDERED: methylPREDNISolone SOD SUCCI 125 MG/2 ML VIAL IV STA (12:51)
[2017-08-03] MEDS ORDERED: MAGNESIUM SULFATE-D5W PMX 1 GM in DEXTROSE/WATER 1 100ML.BAG IVPB STA (12:51)
[2017-08-03] MEDS ORDERED: IPRATROPIUM-ALBUTEROL 3 ML NEB INHALATION STA ×2 (12:51→14:21)
--- NOTE | 2017-08-03 12:54 | ED ---
SOB HPI - General Chief Complaint: Shortness of Breath Stated Complaint: Difficulty Breathing Time Seen by Provider: 08/03/17 12:42 Source: patient, RN notes reviewed Mode of arrival: ambulatory Limitations: no limitations - History of Present Illness Initial Comments: This is a 22-year-old female history of asthma states she had the onset shortness his ago. She was seen in the emergency department yesterday and offered admission but refuses a time due to a small child she states Home. He states he back today because she's having persistent shortness of breath and cough no overt fevers chills or sweats no phlegm production. She states she did recently quit smoking. She has no chest pain or other symptoms report. She also denies any chance being at this time MD Complaint: shortness of breath, cough - Related Data Home Medications Medication Instructions Recorded Confirmed Albuterol Inhaler [Ventolin Hfa 1 - 2 puff INHALATION RT-Q6H PRN 06/18/17 Inhaler] Ergocalciferol (Vitamin D2) 50,000 unit PO SA 06/18/17 08/03/17 [Vitamin D2] Ipratropium-Albuterol Nebulize 3 ml INHALATION RT-QID 08/03/17 08/03/17 [Duoneb 0.5 mg-3 mg/3 ml Soln] Previous Rx's Medication Instructions Recorded Escitalopram [Lexapro] 20 mg PO DAILY #30 tab 01/10/17 hydrOXYzine PAMOATE [Vistaril] 25 mg PO DAILY PRN #30 capsule 01/10/17 traMADol HCL [Ultram] 50 mg PO Q4HR PRN #30 tab 07/13/17 Levofloxacin [Levaquin] 750 mg PO DAILY #6 tab 08/02/17 Promethazine/Dextromethorphan 5 ml PO TID #120 ml 08/02/17 [Phenergan DM Syrup] predniSONE 50 mg PO DAILY #7 tablet 08/02/17 Allergies Allergy/AdvReac Type Severity Reaction Status Date / Time buspirone HCl [From BuSpar] AdvReac NUMBNESS Verified 08/03/17 13:32 Review of Systems ROS Statement: Those systems with pertinent positive or pertinent negative responses have been documented in the HPI. ROS Other: All systems not noted in ROS Statement are negative. Past Medical History Past Medical History: Asthma, Thyroid Disorder Additional Past Medical History / Comment(s): Mild intermittent asthma, endometriosis, polycystic ovarian syndrome, history of opioid addiction, states has scoliosis. History of Any Multi-Drug Resistant Organisms: None Reported Past Surgical History: Orthopedic Surgery Additional Past Surgical History / Comment(s): LAPAROSCOPIC REMOVAL LT OVARIAN CYST X 3, knee surgery left, Past Anesthesia/Blood Transfusion Reactions: No Reported Reaction Past Psychological History: Anxiety, Bipolar, Depression Smoking Status: Former smoker Past Alcohol Use History: None Reported Past Drug Use History: None Reported - Past Family History Father Family Medical History: Asthma Additional Family Medical History / Comment(s): Father is alive at age 44 with history of asthma and heart arrhythmia. Mother Family Medical History: Asthma, Deep Vein Thrombosis (DVT), Thyroid Disorder Additional Family Medical History / Comment(s): States she thinks her mother has a history of DVT. Sister(s) Family Medical History: No Reported History Additional Family Medical History / Comment(s): She has 3 sisters with no major medical problems. She does not have any brothers. She does not have any children. General Exam - General Exam Comments Initial Comments: This is a well-developed well-nourished awake alert oriented 3 female Limitations: no limitations General appearance: alert, anxious, in distress Head exam: Present: atraumatic, normocephalic, normal inspection Eye exam: Present: normal appearance, PERRL, EOMI. Absent: scleral icterus, conjunctival injection, periorbital swelling ENT exam: Present: mucous membranes moist, other (Dull TMs bilaterally more so on the left than the right no erythema) Neck exam: Present: normal inspection. Absent: tenderness, meningismus, lymphadenopathy Respiratory exam: Present: wheezes, accessory muscle use, decreased breath sounds. Absent: respiratory distress, rales, rhonchi, stridor Cardiovascular Exam: Present: regular rate, normal rhythm, normal heart sounds. Absent: systolic murmur, diastolic murmur, rubs, gallop, clicks GI/Abdominal exam: Present: soft, normal bowel sounds. Absent: distended, tenderness, guarding, rebound, rigid Extremities exam: Present: normal inspection, full ROM, normal capillary refill. Absent: tenderness, pedal edema, joint swelling, calf tenderness Back exam: Present: normal inspection Neurological exam: Present: alert, oriented X3, CN II-XII intact Psychiatric exam: Present: normal affect, normal mood Skin exam: Present: warm, dry, intact, normal color. Absent: rash Course Vital Signs 08/03/17 08/03/17 08/03/17 12:35 12:56 13:05 Temperature 98.9 F Pulse Rate 91 84 88 Respiratory 20 Rate Blood Pressure 143/70 O2 Sat by Pulse 95 Oximetry 08/03/17 08/03/17 14:39 14:50 Temperature Pulse Rate 82 84 Respiratory Rate Blood Pressure O2 Sat by Pulse Oximetry - Reevaluation(s) Reevaluation #1: 08/03/17 15:10 Reevaluation the patient after initial treatment revealed no definite improvement. She is very dyspneic so short of breath and diffuse wheezing. Medical Decision Making - Medical Decision Making I did reevaluate the patient again she is not improving at all with the aggressive treatment in the emergency department. I did a long discussion with her and her significant other patient be admitted I did discuss the case with Dr. Fung. - Lab Data Result diagrams: 08/03/17 13:00 08/03/17 13:00 Lab Results 08/03/17 08/03/17 08/03/17 Range/Units 13:00 13:00 13:00 WBC 16.9 H (3.8-10.6) k/uL RBC 4.43 (3.80-5.40) m/uL Hgb 13.3 (11.4-16.0) gm/dL Hct 39.8 (34.0-46.0) % MCV 89.8 (80.0-100.0) fL MCH 30.0 (25.0-35.0) pg MCHC 33.4 (31.0-37.0) g/dL RDW 13.1 (11.5-15.5) % Plt Count 310 (150-450) k/uL Neutrophils % 73 % Lymphocytes % 20 % Monocytes % 5 % Eosinophils % 0 % Basophils % 0 % Neutrophils # 12.3 H (1.3-7.7) k/uL Lymphocytes # 3.3 (1.0-4.8) k/uL Monocytes # 0.9 (0-1.0) k/uL Eosinophils # 0.1 (0-0.7) k/uL Basophils # 0.0 (0-0.2) k/uL PT (9.0-12.0) sec INR (<1.2) APTT (22.0-30.0) sec D-Dimer (<0.60) mg/L FEU Sodium 140 (137-145) mmol/L Potassium 4.3 (3.5-5.1) mmol/L Chloride 106 (98-107) mmol/L Carbon Dioxide 23 (22-30) mmol/L Anion Gap 11 mmol/L BUN 14 (7-17) mg/dL Creatinine 0.70 (0.52-1.04) mg/dL Est GFR (MDRD) Af Amer >60 (>60 ml/min/1.73 sqM) Est GFR (MDRD) Non-Af >60 (>60 ml/min/1.73 sqM) Glucose 92 (74-99) mg/dL Calcium 9.7 (8.4-10.2) mg/dL Magnesium 1.6 (1.6-2.3) mg/dL Total Bilirubin 0.2 (0.2-1.3) mg/dL AST 18 (14-36) U/L ALT 32 (9-52) U/L Alkaline Phosphatase 43 (38-126) U/L Total Creatine Kinase 72 (30-135) U/L CK-MB (CK-2) 0.7 (0.0-2.4) ng/mL CK-MB (CK-2) Rel Index 1.0 Troponin I <0.012 (0.000-0.034) ng/mL NT-Pro-B Natriuret Pep pg/mL Total Protein 6.9 (6.3-8.2) g/dL Albumin 4.1 (3.5-5.0) g/dL 08/03/17 08/03/17 08/03/17 Range/Units 13:00 13:00 13:00 WBC (3.8-10.6) k/uL RBC (3.80-5.40) m/uL Hgb (11.4-16.0) gm/dL Hct (34.0-46.0) % MCV (80.0-100.0) fL MCH (25.0-35.0) pg MCHC (31.0-37.0) g/dL RDW (11.5-15.5) % Plt Count (150-450) k/uL Neutrophils % % Lymphocytes % % Monocytes % % Eosinophils % % Basophils % % Neutrophils # (1.3-7.7) k/uL Lymphocytes # (1.0-4.8) k/uL Monocytes # (0-1.0) k/uL Eosinophils # (0-0.7) k/uL Basophils # (0-0.2) k/uL PT 10.3 (9.0-12.0) sec INR 1.0 (<1.2) APTT 21.9 L (22.0-30.0) sec D-Dimer 0.22 (<0.60) mg/L FEU Sodium (137-145) mmol/L Potassium (3.5-5.1) mmol/L Chloride (98-107) mmol/L Carbon Dioxide (22-30) mmol/L Anion Gap mmol/L BUN (7-17) mg/dL Creatinine (0.52-1.04) mg/dL Est GFR (MDRD) Af Amer (>60 ml/min/1.73 sqM) Est GFR (MDRD) Non-Af (>60 ml/min/1.73 sqM) Glucose (74-99) mg/dL Calcium (8.4-10.2) mg/dL Magnesium (1.6-2.3) mg/dL Total Bilirubin (0.2-1.3) mg/dL AST (14-36) U/L ALT (9-52) U/L Alkaline Phosphatase (38-126) U/L Total Creatine Kinase (30-135) U/L CK-MB (CK-2) (0.0-2.4) ng/mL CK-MB (CK-2) Rel Index Troponin I (0.000-0.034) ng/mL NT-Pro-B Natriuret Pep 99 pg/mL Total Protein (6.3-8.2) g/dL Albumin (3.5-5.0) g/dL - EKG Data -: EKG Interpreted by [facility] EKG shows normal: sinus rhythm, axis, intervals, QRS complexes, ST-T waves ( Sinus rhythm of 82 TN interval 150 to QRS duration 80 QT since QTC of 388/453 st -t wave changes.) Rate: normal - Radiology Data Radiology results: report reviewed (X-ray shows no evidence of acute infiltrate. ), image reviewed Critical Care Time Critical Care Time: Yes Critical Care Time: 31 minutes of critical care time which includes initial presentation with history physical labs x-rays multiple re-evaluations the patient. Discussed with the patient and her significant other regarding findings. Discussion with the admitting physician admission orders and documentation of the above. Disposition Clinical Impression: Asthma with status asthmaticus, Failure of outpatient treatment Disposition: ADMITTED IP TO THIS [facility] Condition: Stable Referrals: Jackie Dawson MD [Primary Care Provider] - 1-2 days
[2017-08-03 13:19] LABS: Basophils % (A) 0 %; CH 29.8; CHCM 33.3; Eosinophils # (A) 0.1 k/uL (0-0.7); Eosinophils % (A) 0 %; HCT 39.8 % (34.0-46.0); HDW 2.67; HGB 13.3 gm/dL (11.4-16.0); Luc % (Auto) 2; Lymphocytes # (A) 3.3 k/uL (1.0-4.8); Lymphocytes % (A) 20 %; MCHC 33.4 g/dL (31.0-37.0); MCV 89.8 fL (80.0-100.0); Mean Platelet Volume 6.7; Monocytes # (A) 0.9 k/uL (0-1.0); Monocytes % (A) 5 %; Neutrophils # (A) 12.3 k/uL (1.3-7.7); Neutrophils % (A) 73 %; RBC 4.43 m/uL (3.80-5.40); RDW 13.1 % (11.5-15.5); WBC 16.9 k/uL (3.8-10.6); WBC (Perox) 16.96
[2017-08-03 13:30] LABS: Prothrombin Time 10.3 sec (9.0-12.0)
[2017-08-03 13:36] LABS: ALT 32 U/L (9-52); AST 18 U/L (14-36); Alkaline Phosphatase 43 U/L (38-126); Anion Gap 11 mmol/L; Blood Urea Nitrogen 14 mg/dL (7-17); Calcium 9.7 mg/dL (8.4-10.2); Carbon Dioxide 23 mmol/L (22-30); Chloride 106 mmol/L (98-107); Glucose 92 mg/dL (74-99); Magnesium 1.6 mg/dL (1.6-2.3); Non-African American GFR(MDRD) >60 (>60 ml/min/1.73 sqM); Partial Thromboplastin Time 21.9 sec (22.0-30.0); Potassium 4.3 mmol/L (3.5-5.1); Sodium 140 mmol/L (137-145); Total Bilirubin 0.2 mg/dL (0.2-1.3); Total Protein 6.9 g/dL (6.3-8.2)
--- NOTE | 2017-08-03 13:47 | XR ---
EXAMINATION TYPE: XR chest 2V DATE OF EXAM: 08/03/2017 COMPARISON: 08/02/2017 TECHNIQUE: PA and lateral views submitted. HISTORY: Shortness of breath and cough FINDINGS: The lungs are clear and there is no pneumothorax, pleural effusion, or focal pneumonia. IMPRESSION: 1. No acute process.
[2017-08-03 13:50] LABS: Creatine Kinase 72 U/L (30-135)
[2017-08-03 14:03] LABS: Creatine Kinase MB 0.7 ng/mL (0.0-2.4); Troponin I <0.012 ng/mL (0.000-0.034)
[2017-08-03] MEDS ORDERED: NON-FORMULARY DRUG (Promethazine/Dextromethorphan [Phenergan Dm Syrup] 5 ML) PO SCH (16:00)
[2017-08-03] MEDS ORDERED: IPRATROPIUM-ALBUTEROL 3 ML NEB INHALATION SCH (16:00)
[2017-08-03 16:18] LABS: Appearance,Urine Cloudy (Clear); Bacteria,Urine Rare /hpf; Bilirubin,Urine Negative (Negative); Glucose,Urine (UA) Negative (Negative); Ketones,Urine Negative (Negative); Leukocyte Esterase,Urine Small (Negative); Mucus,Urine Rare /hpf; Nitrite,Urine Negative (Negative); PH, Urine 6.5 (5.0-8.0); Particle Count 12855; Protein,Urine Negative (Negative); RBC,Urine 3 /hpf (0-5); Specific Gravity,Urine 1.014 (1.001-1.035); Squamous Epithelial Cell,Urine 24 /hpf (0-4); UA Billing (MACRO vs. MICRO) MICRO; Urobilinogen,Urine <2.0 mg/dL (<2.0); WBC,Urine 4 /hpf (0-5)
[2017-08-03] MEDS ORDERED: ALBUTEROL NEBULIZED 2.5 MG/3 ML INHALATION PRN (16:24)
[2017-08-03] MEDS ORDERED: hydrOXYzine HCL 25 MG TAB PO PRN (16:25)
[2017-08-03] MEDS ORDERED: HYDROcodone/APAP 5-325MG 1 EACH TAB PO PRN (16:26)
[2017-08-03] MEDS ORDERED: ONDANSETRON 4 MG/2 ML VIAL IVP PRN (16:26)
[2017-08-03] MEDS ORDERED: ACETAMINOPHEN TAB 325 MG TAB PO PRN (16:26)
[2017-08-03] MEDS ORDERED: DOCUSATE 100 MG CAP PO PRN (16:27)
--- NOTE | 2017-08-03 16:40 | P.HPIM ---
History of Present Illness H&P Date: 08/03/17 Chief Complaint: shortness of breath Patient is a 22-year-old female with a past medical history mild intermittent asthma, endometriosis, and bipolar disorder who presented to the emergency department with shortness of breath. She had been in the ER the day prior to offering admission however she wanted to continue to try to work. In the ER she underwent an extensive evaluation. She was found to have an elevated white blood cell count. Her chest x-ray was negative. Blood cultures were ordered. She was given IV steroids, [id number] breathing treatments, and magnesium. She was admitted for further management of her acute exacerbation of asthma. She states that her wheezing and shortness of breath started suddenly approximately 3 days ago. She also complains of a cough that is productive of yellow sputum intermittently. She states she feels that she has started to cough up but is unable to do so. She states that her shortness of breath is actually worse when lying flat and better when sitting and worse again when exerting herself. She also complains of a hoarse voice. She has body aches and a stuffy nose. She does have dizziness with her shortness of breath. She denies any headaches. She states she spiked a fever the night before last of 103. She does have a history of chronic bronchitis and asthma. She had been using her albuterol inhaler approximately once weekly prior to this illness. She had been taking her steroids at home and using her nebulizer. She was using her nebulizer every 4 hours but this did not offer relief. She therefore presented to the emergency department. Past Medical History Past Medical History: Asthma, Thyroid Disorder Additional Past Medical History / Comment(s): Mild intermittent asthma, endometriosis, polycystic ovarian syndrome, history of opioid addiction, states has scoliosis. History of Any Multi-Drug Resistant Organisms: None Reported Past Surgical History: Orthopedic Surgery Additional Past Surgical History / Comment(s): LAPAROSCOPIC REMOVAL LT OVARIAN CYST X 3, knee surgery left, Past Anesthesia/Blood Transfusion Reactions: No Reported Reaction Past Psychological History: Anxiety, Bipolar, Depression Smoking Status: Former smoker Past Alcohol Use History: None Reported Past Drug Use History: None Reported, Methamphetamine, Opiates Additional Drug Use History / Comment(s): clean for 3 years, no history of invervenous drug use - Past Family History Father Family Medical History: Asthma Additional Family Medical History / Comment(s): Father is alive at age 44 with history of asthma and heart arrhythmia. Mother Family Medical History: Asthma, Deep Vein Thrombosis (DVT), Thyroid Disorder Additional Family Medical History / Comment(s): States she thinks her mother has a history of DVT. Sister(s) Family Medical History: No Reported History Additional Family Medical History / Comment(s): She has 3 sisters with no major medical problems. She does not have any brothers. She does not have any children. Medications and Allergies Home Medications Medication Instructions Recorded Confirmed Type Escitalopram [Lexapro] 20 mg PO DAILY #30 tab 01/10/17 08/03/17 Rx hydrOXYzine PAMOATE [Vistaril] 25 mg PO DAILY PRN #30 capsule 01/10/17 08/03/17 Rx Albuterol Inhaler [Ventolin Hfa 1 - 2 puff INHALATION RT-Q6H PRN 06/18/17 History Inhaler] Ergocalciferol (Vitamin D2) 50,000 unit PO SA 06/18/17 08/03/17 History [Vitamin D2] traMADol HCL [Ultram] 50 mg PO Q4HR PRN #30 tab 07/13/17 08/03/17 Rx Levofloxacin [Levaquin] 750 mg PO DAILY #6 tab 08/02/17 08/03/17 Rx Promethazine/Dextromethorphan 5 ml PO TID #120 ml 08/02/17 08/03/17 Rx [Phenergan DM Syrup] predniSONE 50 mg PO DAILY #7 tablet 08/02/17 08/03/17 Rx Ipratropium-Albuterol Nebulize 3 ml INHALATION RT-QID 08/03/17 08/03/17 History [Duoneb 0.5 mg-3 mg/3 ml Soln] Allergies Allergy/AdvReac Type Severity Reaction Status Date / Time buspirone HCl [From BuSpar] AdvReac NUMBNESS Verified 08/03/17 13:32 Physical Exam Osteopathic Statement: *. No significant issues noted on an osteopathic structural exam other than those noted in the History and Physical/Consult. Vitals: Vital Signs Temp Pulse Resp BP Pulse Ox 08/03/17 14:50 84 08/03/17 14:39 82 08/03/17 13:05 88 08/03/17 12:56 84 08/03/17 12:35 98.9 F 91 20 143/70 95 Intake and Output 08/03/17 08/03/17 08/03/17 06:59 14:59 22:59 Other: Weight 63.503 kg Patient Weight 08/04/17 06:59 Weight 63.503 kg General: Ill appearing, no distress, appears at stated age, normal weight Derm: no rashes, no lesions, no ulcers, no unusual ecchymoses Head: atraumatic, normocephalic, symmetric Eyes: EOMI, no lid lag, anicteric sclera, pupils equal round reactive to light ENT: no post nasal drip, + thrush , nearest patent, no pharyngeal erythema Neck: No thyromegaly, no cervical lymphadenopathy, trachea midline, supple Mouth: no lip lesion, mucus membranes moist Cardiovascular: S1S2 reg, no murmur, positive posterior tibial pulse bilateral, no edema , no JVD, no clubbing, no cyanosis, capillary refill less than 2 seconds Lungs: Wheezes and rhonchi bilaterally, no accessory muscle use Abdominal: soft, nontender to palpation, no guarding, no appreciable organomegaly, normal bowel sounds Ext: no gross muscle atrophy, muscle strength 5 out of 5 in all 4 extremities grossly, no contractures, Neuro: CN II-XI grossly intact, light touch intact all 4 extremities, finger to nose within normal limits, Psych: Alert, oriented, appropriate affect Results CBC & Chem 7: 08/03/17 13:00 08/03/17 13:00 Labs: Abnormal Lab Results - Last 24 Hours (Table) 08/03/17 08/03/17 08/03/17 Range/Units 13:00 13:00 16:02 WBC 16.9 H (3.8-10.6) k/uL Neutrophils # 12.3 H (1.3-7.7) k/uL APTT 21.9 L (22.0-30.0) sec Urine Appearance Cloudy H (Clear) Ur Leukocyte Esterase Small H (Negative) Ur Squamous Epith Cells 24 H (0-4) /hpf Urine Bacteria Rare H (None) /hpf Urine Mucus Rare H (None) /hpf Chest x-ray: report reviewed, image reviewed Thrombosis Risk Factor Assmnt - DVT/VTE Prophylaxis DVT/VTE Prophylaxis: Mechanical Prophylaxis ordered Assessment and Plan Plan: #Acute exacerbation of mild intermittent asthma with acute bronchitis, failed outpatient treatment -IV steroids -Albuterol scheduled and when necessary, scheduled Pulmicort -Levaquin -Limit her hygiene #Leukocytosis -May be reactive to steroids given yesterday -Check urinalysis to rule out infection -Chest x-ray negative #Bipolar -Continue Lexapro, Vistaril #Chronic headaches -Continue with propranolol #Recent tobacco abuse -Encourage continued cessation Surrogate decision-maker: Bernadette Llanes (Niko) CODE STATUS:Full DVT prophylaxis: SCDs Discussed with: Patient, RN Anticipated discharge: 24-[address]: home A total of 60 minutes was spent on the care of this complex patient more than 50 % of the time was spent in counseling and care coordination.
[2017-08-03] MEDS: methylPREDNISolone SOD SUCCI 125 MG/2 ML VIAL IV SCH (17:45)
[2017-08-03] MEDS: SODIUM CHLORIDE 0.9% 1,000 ML IV SCH (17:46)
[2017-08-03] MEDS: LEVOFLOXACIN 500 MG TAB PO SCH (17:46)
[2017-08-03] MEDS: traMADol 50 MG TAB PO PRN (17:46)
[2017-08-03] MEDS: NYSTATIN 100,000 UNIT/ML SUSP 500,000 UNIT/5 ML CUP PO SCH (17:46)
[2017-08-03] MEDS: BUDESONIDE 1 MG/2 ML NEBU INHALATION SCH (18:57)
[2017-08-03] MEDS: ALBUTEROL NEBULIZED 2.5 MG/3 ML INHALATION SCH ×2 (18:57→23:44)
[2017-08-03] MEDS: MELATONIN 5 MG TABLET PO PRN (20:28)
[2017-08-03] MEDS: guaiFENesin 600 MG TABLET.ER PO SCH (20:28)
[2017-08-03] MEDS: PROMETHAZINE 6.25MG/5ML 147.5 MG/118 ML BOTTLE PO PRN (20:38)
[2017-08-04] MEDS: methylPREDNISolone SOD SUCCI 125 MG/2 ML VIAL IV SCH ×4 (01:14→17:26)
[2017-08-04] MEDS: traMADol 50 MG TAB PO PRN ×4 (01:14→21:45)
[2017-08-04] MEDS: NYSTATIN 100,000 UNIT/ML SUSP 500,000 UNIT/5 ML CUP PO SCH ×5 (01:14→21:45)
[2017-08-04] MEDS: ALBUTEROL NEBULIZED 2.5 MG/3 ML INHALATION SCH ×5 (04:10→20:44)
[2017-08-04 07:09] LABS: CH 29.6; CHCM 32.3; HCT 36.7 % (34.0-46.0); HDW 2.61; HGB 12.2 gm/dL (11.4-16.0); MCH 30.6 pg (25.0-35.0); MCHC 33.2 g/dL (31.0-37.0); Mean Platelet Volume 6.6; RBC 3.99 m/uL (3.80-5.40); WBC 15.7 k/uL (3.8-10.6)
[2017-08-04 07:22] LABS: Anion Gap 11 mmol/L; Blood Urea Nitrogen 18 mg/dL (7-17); Calcium 9.2 mg/dL (8.4-10.2); Carbon Dioxide 21 mmol/L (22-30); Chloride 107 mmol/L (98-107); Glucose 158 mg/dL (74-99); Non-African American GFR(MDRD) >60 (>60 ml/min/1.73 sqM); Potassium 4.3 mmol/L (3.5-5.1); Sodium 139 mmol/L (137-145)
[2017-08-04] MEDS: PROMETHAZINE 6.25MG/5ML 147.5 MG/118 ML BOTTLE PO PRN ×3 (07:53→21:48)
[2017-08-04] MEDS: guaiFENesin 600 MG TABLET.ER PO SCH ×2 (08:26→21:47)
[2017-08-04] MEDS: ESCITALOPRAM 20 MG TAB PO SCH (08:26)
[2017-08-04] MEDS: BUDESONIDE 1 MG/2 ML NEBU INHALATION SCH ×2 (08:32→20:44)
--- NOTE | 2017-08-04 09:32 | P.PN ---
Subjective Principal diagnosis: shortness of breath Patient is a 22-year-old female with a past medical history mild intermittent asthma, endometriosis, and bipolar disorder who presented to the emergency department with shortness of breath. She had been in the ER the day prior to offering admission however she wanted to continue to try to work. In the ER she underwent an extensive evaluation. She was found to have an elevated white blood cell count. Her chest x-ray was negative. Blood cultures were ordered. She was given IV steroids, [id number] breathing treatments, and magnesium. She was admitted for further management of her acute exacerbation of asthma with acute bronchitis. By the morning after admission she had had significant improvement in her wheezing. However she still reports a heavy chest feeling. Still requiring oxygen. Patient seen and examined at bedside. Wheezing better, still feels like she is having difficulty coughing things up, complains of a heavy chest. Denies nausea , vomiting, diarrhea, or constipation. Not lightheaded or dizzy. States she received 2 doses of Mucinex but is still not able to produce sputum. Objective - Vital Signs Vital signs: Vital Signs Temp 97.7 F 08/04/17 08:23 Pulse 108 H 08/04/17 08:52 Resp 20 08/04/17 08:23 BP 108/47 08/04/17 08:23 Pulse Ox 97 08/04/17 08:23 Intake & Output 08/03/17 08/04/17 08/04/17 18:59 06:59 18:59 Weight 63.503 kg Other: # Voids 1 - Exam General: non toxic, mild distress, appears at stated age Derm: no rashes, no lesions Head: atraumatic, normocephalic, symmetric Eyes: EOMI, no lid lag, anicteric sclera ENT: no post nasal drip, + thrush Mouth: no lip lesion, mucus membranes moist Cardiovascular: S1S2 reg, no murmur, positive posterior tibial pulse bilateral, Lungs: Rhonchi bilaterally, no accessory muscle use Abdominal: soft, nontender to palpation, no guarding, no appreciable organomegaly Ext: no gross muscle atrophy, no edema, no contractures Neuro: CN II-XI grossly intact, no focal neuro deficits Psych: Alert, oriented, appropriate affect - Labs CBC & Chem 7: 08/04/17 06:58 08/04/17 06:58 Labs: Abnormal Lab Results - Last 24 Hours (Table) 08/03/17 08/03/17 08/03/17 Range/Units 13:00 13:00 16:02 WBC 16.9 H (3.8-10.6) k/uL Neutrophils # 12.3 H (1.3-7.7) k/uL APTT 21.9 L (22.0-30.0) sec Carbon Dioxide (22-30) mmol/L BUN (7-17) mg/dL Glucose (74-99) mg/dL TSH (0.465-4.680) mIU/L Urine Appearance Cloudy H (Clear) Ur Leukocyte Esterase Small H (Negative) Ur Squamous Epith Cells 24 H (0-4) /hpf Urine Bacteria Rare H (None) /hpf Urine Mucus Rare H (None) /hpf 08/04/17 08/04/17 Range/Units 06:58 06:58 WBC 15.7 H (3.8-10.6) k/uL Neutrophils # (1.3-7.7) k/uL APTT (22.0-30.0) sec Carbon Dioxide 21 L (22-30) mmol/L BUN 18 H (7-17) mg/dL Glucose 158 H (74-99) mg/dL TSH 0.070 L (0.465-4.680) mIU/L Urine Appearance (Clear) Ur Leukocyte Esterase (Negative) Ur Squamous Epith Cells (0-4) /hpf Urine Bacteria (None) /hpf Urine Mucus (None) /hpf Assessment and Plan Plan: #Acute exacerbation of mild intermittent asthma with acute bronchitis, failed outpatient treatment - Continue IV steroids -Albuterol scheduled and when necessary, scheduled Pulmicort -Levaquin -Pulmonary hygiene - Mucinex, flutter valve #Leukocytosis, improving -May be reactive to steroids given yesterday -Check urinalysis to rule out infection -Chest x-ray negative #Bipolar -Continue Lexapro, Vistaril #Chronic headaches -Continue with propranolol #Recent tobacco abuse -Encourage continued cessation # subclinical hyperthyroidism - repeat TSH and Free T4 as outpatient DVT prophylaxis: SCDs Discussed with: Patient, RN Anticipated discharge: [address]: home A total of 30 minutes was spent on the care of this complex patient more than 50 % of the time was spent in counseling and care coordination.
[2017-08-04] MEDS: LEVOFLOXACIN 500 MG TAB PO SCH (17:22)
[2017-08-04] MEDS: MELATONIN 5 MG TABLET PO PRN (22:18)
[2017-08-05] MEDS: ALBUTEROL NEBULIZED 2.5 MG/3 ML INHALATION SCH ×3 (00:55→08:27)
[2017-08-05] MEDS: SODIUM CHLORIDE 0.9% 1,000 ML IV SCH (03:34)
[2017-08-05] MEDS: methylPREDNISolone SOD SUCCI 125 MG/2 ML VIAL IV SCH ×2 (06:21)
[2017-08-05] MEDS: BUDESONIDE 1 MG/2 ML NEBU INHALATION SCH (08:27)
[2017-08-05 08:37] VITALS: BP 110/73; TEMP 98.5
[2017-08-05 08:43] LABS: CH 30.2; CHCM 32.6; HCT 37.6 % (34.0-46.0); HDW 2.55; HGB 12.1 gm/dL (11.4-16.0); MCH 29.9 pg (25.0-35.0); MCHC 32.2 g/dL (31.0-37.0); Mean Platelet Volume 6.8; RBC 4.05 m/uL (3.80-5.40); RDW 13.6 % (11.5-15.5); WBC 18.7 k/uL (3.8-10.6)
[2017-08-05 08:45] VITALS: PULSE 112
[2017-08-05] MEDS: traMADol 50 MG TAB PO PRN (09:23)
[2017-08-05] MEDS: ESCITALOPRAM 20 MG TAB PO SCH (09:26)
[2017-08-05] MEDS: guaiFENesin 600 MG TABLET.ER PO SCH (09:26)
[2017-08-05] MEDS: NYSTATIN 100,000 UNIT/ML SUSP 500,000 UNIT/5 ML CUP PO SCH (09:27)
[2017-08-05 09:42] VITALS: RESP 16
--- NOTE | 2017-08-05 09:45 | P.DS ---
Providers Date of admission: 08/03/17 15:13 Expected date of discharge: 08/05/17 Attending physician: Svitlana Fung DO Consults: None Primary care physician: Jackie Dawson - Discharge Diagnosis(es) (1) Asthma with status asthmaticus Status: Resolved (2) Bronchitis Status: Resolved (3) Failure of outpatient treatment Status: Resolved (4) Leukocytosis Status: Resolved (5) Bipolar disorder Status: Chronic Hospital Course: Patient is a 22-year-old female with a past medical history mild intermittent asthma, endometriosis, and bipolar disorder who presented to the emergency department with shortness of breath. She had been in the ER the day prior to offering admission however she wanted to continue to try to work. In the ER she underwent an extensive evaluation. She was found to have an elevated white blood cell count. Her chest x-ray was negative. Blood cultures were ordered. She was given IV steroids, [id number] breathing treatments, and magnesium. She was admitted for further management of her acute exacerbation of asthma with acute bronchitis. By the morning after admission she had had significant improvement in her wheezing. However she still reports a heavy chest feeling. Still requiring oxygen. She was started on Mucinex and a flutter valve. By 08/05 she had a productive cough. Her chest heaviness was resolved. Her wheezing was much improved. She was determined stable for discharge home. She'll complete a course of antibiotics and a steroid taper. She was given a prescription for albuterol for the nebulizer. She'll follow up with her primary care physician next week. Her leukocytosis was elevated secondary to IV steroid use. Her tachycardia was associated with albuterol used would come down in between treatments. She was given instructions to seek medical treatment should she develop fevers, worsening shortness of breath, or change in sputum production. Patient seen and examined at bedside. No longer wheezing, shortness of breath significantly improved, cough is now productive of scant yellow sputum Vital signs reviewed and stable. General: non toxic, no distress, appears at stated age Derm: no rashes, no lesions Head: atraumatic, normocephalic, symmetric Eyes: EOMI, no lid lag, anicteric sclera ENT: no post nasal drip, no thrush Mouth: no lip lesion, mucus membranes moist Cardiovascular: S1S2 reg, no murmur, positive posterior tibial pulse bilateral, Lungs: Rhonchi bilaterally , no accessory muscle use Abdominal: soft, nontender to palpation, no guarding, no appreciable organomegaly Ext: no gross muscle atrophy, no edema, no contractures Neuro: CN II-XI grossly intact, no focal neuro deficits Psych: Alert, oriented, appropriate affect A total of 35 minutes of time were spent preparing this complex discharge summary . Patient Condition at Discharge: Stable Plan - Discharge Summary New Discharge Prescriptions: New Albuterol Nebulized [Ventolin Nebulized] 2.5 mg INHALATION RT-Q4H PRN #120 neb PRN Reason: Shortness Of Breath guaiFENesin [Mucinex] 1,200 mg PO Q12HR tab Nystatin 100,000 Unit/ml Susp [Mycostatin Oral Susp] 500,000 unit PO QID #40 dose predniSONE 20 mg PO DIRECTED #30 tab Promethazine 6.25MG/5Ml [Phenergan Syrup] 6.25 mg PO TID PRN #1 bottle PRN Reason: Cough Continue Escitalopram [Lexapro] 20 mg PO DAILY #30 tab hydrOXYzine PAMOATE [Vistaril] 25 mg PO DAILY PRN #30 capsule PRN Reason: Anxiety Albuterol Inhaler [Ventolin Hfa Inhaler] 1 - 2 puff INHALATION RT-Q6H PRN PRN Reason: Shortness Of Breath Ergocalciferol (Vitamin D2) [Vitamin D2] 50,000 unit PO SA Levofloxacin [Levaquin] 750 mg PO DAILY #6 tab traMADol HCL [Ultram] 50 mg PO Q4HR PRN #20 tab PRN Reason: Pain Discontinued predniSONE 50 mg PO DAILY #7 tablet Promethazine/Dextromethorphan [Phenergan DM Syrup] 5 ml PO TID #120 ml Ipratropium-Albuterol Nebulize [Duoneb 0.5 mg-3 mg/3 ml Soln] 3 ml INHALATION RT-QID Discharge Medication List Escitalopram [Lexapro] 20 mg PO DAILY #30 tab 01/10/17 [Rx] hydrOXYzine PAMOATE [Vistaril] 25 mg PO DAILY PRN #30 capsule 01/10/17 [Rx] Albuterol Inhaler [Ventolin Hfa Inhaler] 1 - 2 puff INHALATION RT-Q6H PRN [History] Ergocalciferol (Vitamin D2) [Vitamin D2] 50,000 unit PO SA 06/18/17 [History] Levofloxacin [Levaquin] 750 mg PO DAILY #6 tab 08/02/17 [Rx] Albuterol Nebulized [Ventolin Nebulized] 2.5 mg INHALATION RT-Q4H PRN #120 neb 08/05/17 [Rx] Nystatin 100,000 Unit/ml Susp [Mycostatin Oral Susp] 500,000 unit PO QID #40 dose 08/05/17 [Rx] Promethazine 6.25MG/5Ml [Phenergan Syrup] 6.25 mg PO TID PRN #1 bottle 08/05/17 [Rx] guaiFENesin [Mucinex] 1,200 mg PO Q12HR tab 08/05/17 [Rx] predniSONE 20 mg PO DIRECTED #30 tab 08/05/17 [Rx] traMADol HCL [Ultram] 50 mg PO Q4HR PRN #20 tab 08/05/17 [Rx] Follow up Appointment(s)/Referral(s): Jackie Dawson MD [Primary Care Provider] - 08/10/17 4:00 pm (you have a follow up appointment with Dr Mejia on Tuesday, August 10, 2017 at 4:00 pm.) Patient Instructions/Handouts: Asthma (GEN), How to Use a Nebulizer (DC) Activity/Diet/Wound Care/Special Instructions: Regular diet, activity as tolerated. Return to the emergency center if you have difficulty in breathing, if you have any heart palpitations, increase in pain, or develop a fever over the weekend. Call Dr Mejia if you have any problems, questions, or concerns. Use the nysatin for the thrush on your tongue as prescribed. Use your nebulizer medications as prescribes. Discharge Disposition: HOME SELF-CARE
[2017-08-06] MEDS ORDERED: ERGOCALCIFEROL 50,000 UNIT CAP PO SCH (12:00)
== END 2017-08-05 11:00 | disposition home or self-care (01) | DRG 202 ==
LOC: EC 12:22 → 6PED 15:13
PROVIDERS: ADMIT Internal Medicine; ATTEND Internal Medicine
DX: J20.9 Acute bronchitis, unspecified (principal); J45.22 Mild intermittent asthma with status asthmaticus; M41.9 Scoliosis, unspecified; F31.9 Bipolar disorder, unspecified; R51 Headache; F17.200 Nicotine dependence, unspecified, uncomplicated; T38.0X5A Adverse effect of glucocorticoids and synthetic analogues, initial encounter; R00.0 Tachycardia, unspecified; D72.829 Elevated white blood cell count, unspecified; F41.9 Anxiety disorder, unspecified; Z88.8 Allergy status to other drugs, medicaments and biological substances; Z79.899 Other long term (current) drug therapy; Z79.51 Long term (current) use of inhaled steroids; Z79.52 Long term (current) use of systemic steroids; Z82.5 Family history of asthma and other chronic lower respiratory diseases; Z83.2 Family history of diseases of the blood and blood-forming organs and certain disorders involving the immune mechanism; Z87.42 Personal history of other diseases of the female genital tract
CPT/HCPCS: 36415; 71020; 80048; 80053; 81001; 82550; 82553; 83735; 83880; 84439; 84443; 84484; 85025; 85027; 85379; 85610; 85730; 87040; 93005; 94640; 94667; 96365; 96366; 96372; 96375; 99284; 99291

== ENCOUNTER 2018-01-27 16:48 | Inpatient (IN) | payer BC ==
--- NOTE | 2018-01-27 17:45 | ED ---
Psych HPI - General Chief Complaint: Psychiatric Symptoms Stated Complaint: Mental Health/Suicidal Time Seen by Provider: 01/27/18 17:04 Source: patient, RN notes reviewed, old records reviewed Mode of arrival: ambulatory - History of Present Illness Initial Comments: This patient is a 22-year-old female with a history of anxiety and depression and PTSD. Emergency department today chief complaint of feeling her medications are not working. She states over the past 3 days she's been very depressed and has had some suicidal ideations. She does not have any specific t plans that she will rate at this time, but she states she does not feel safe by herself. She states she's been making some irrational decisions over the past few weeks. She states that she decided to move to [place] and with friends and quit her job. Patient states that she does not have a good reason for why she is on these things. Patient states that she reports that she's been coming increasingly angry at people for very little results. She states that she does not know what will make or snap. Patient states that she does take her medications regularly. She states that she is just feels like they're not working. She denies any auditory or visual hallucinations. She denies any homicidal ideations. She is currently still is wearing a brace on her right knee after she sprained her knee a few weeks ago. She follows up with property specialist. Patient reports that she's had a poor appetite has been sleeping too much. - Related Data Home Medications Medication Instructions Recorded Confirmed Naproxen [Naprosyn] 500 mg PO Q12HR PRN 01/27/18 01/27/18 Previous Rx's Medication Instructions Recorded Escitalopram [Lexapro] 20 mg PO DAILY #30 tab 01/10/17 hydrOXYzine PAMOATE [Vistaril] 25 mg PO DAILY PRN #30 capsule 01/10/17 Allergies Allergy/AdvReac Type Severity Reaction Status Date / Time buspirone HCl [From BuSpar] AdvReac NUMBNESS Verified 01/27/18 17:12 Review of Systems ROS Statement: Those systems with pertinent positive or pertinent negative responses have been documented in the HPI. ROS Other: All systems not noted in ROS Statement are negative. Past Medical History Past Medical History: Asthma, Thyroid Disorder Additional Past Medical History / Comment(s): Mild intermittent asthma, endometriosis, polycystic ovarian syndrome, history of opioid addiction, states has scoliosis. History of Any Multi-Drug Resistant Organisms: None Reported Past Surgical History: Orthopedic Surgery Additional Past Surgical History / Comment(s): LAPAROSCOPIC REMOVAL LT OVARIAN CYST X 3, knee surgery left, Past Anesthesia/Blood Transfusion Reactions: No Reported Reaction Past Psychological History: Anxiety, Bipolar, Depression Smoking Status: Current every day smoker Past Alcohol Use History: Occasional Past Drug Use History: Methamphetamine, Opiates - Past Family History Father Family Medical History: Asthma Additional Family Medical History / Comment(s): Father is alive at age 44 with history of asthma and heart arrhythmia. Mother Family Medical History: Asthma, Deep Vein Thrombosis (DVT), Thyroid Disorder Additional Family Medical History / Comment(s): States she thinks her mother has a history of DVT. Sister(s) Family Medical History: No Reported History Additional Family Medical History / Comment(s): She has 3 sisters with no major medical problems. She does not have any brothers. She does not have any children. General Exam - General Exam Comments Initial Comments: This is a 22-year-old female. No acute distress. Limitations: no limitations General appearance: alert, in no apparent distress Head exam: Present: atraumatic, normocephalic, normal inspection Eye exam: Present: normal appearance, PERRL, EOMI. Absent: scleral icterus, conjunctival injection, periorbital swelling ENT exam: Present: normal exam, mucous membranes moist Neck exam: Present: normal inspection. Absent: tenderness, meningismus, lymphadenopathy Respiratory exam: Present: normal lung sounds bilaterally. Absent: respiratory distress, wheezes, rales, rhonchi, stridor Cardiovascular Exam: Present: regular rate, normal rhythm, normal heart sounds. Absent: systolic murmur, diastolic murmur, rubs, gallop, clicks GI/Abdominal exam: Present: soft, normal bowel sounds. Absent: distended, tenderness, guarding, rebound, rigid Extremities exam: Present: normal inspection, full ROM, normal capillary refill. Absent: tenderness, pedal edema, joint swelling, calf tenderness Right Upper Leg exam: Present: normal inspection, full ROM Knee exam: Present: normal inspection, tenderness, swelling (minimal tenderness and swelling noted of right knee). Absent: full ROM Lower Leg exam: Present: normal inspection, full ROM Ankle exam: Present: normal inspection, full ROM Gait: observed and normal Back exam: Present: normal inspection, full ROM Neurological exam: Present: alert, oriented X3, CN II-XII intact Psychiatric exam: Present: depressed, suicidal ideation. Absent: normal affect , normal mood Skin exam: Present: warm, dry, intact, normal color. Absent: rash Course Vital Signs 01/27/18 17:01 Temperature 98.3 F Pulse Rate 123 H Respiratory 20 Rate Blood Pressure 126/65 O2 Sat by Pulse 99 Oximetry Medical Decision Making - Medical Decision Making 22-year-old female with suicidal ideations and fluctuations mood. She's been taking her medicine but reports is not helping. She is concerned be home alone. She denies any specific plans at this time. Patient is medically clear and evaluated by EPS. They feel the patient should be admitted. Patient was transferred to psychiatric unit at 8:50 PM. - Lab Data Lab Results 01/27/18 Range/Units 18:02 Urine Opiates Screen Not Detected (NotDetected) Ur Oxycodone Screen Not Detected (NotDetected) Urine Methadone Screen Not Detected (NotDetected) Ur Propoxyphene Screen Not Detected (NotDetected) Ur Barbiturates Screen Not Detected (NotDetected) U Tricyclic Antidepress Not Detected (NotDetected) Ur Phencyclidine Scrn Not Detected (NotDetected) Ur Amphetamines Screen Not Detected (NotDetected) U Methamphetamines Scrn Not Detected (NotDetected) U Benzodiazepines Scrn Not Detected (NotDetected) Urine Cocaine Screen Not Detected (NotDetected) U Marijuana (THC) Screen Detected H (NotDetected) Disposition Clinical Impression: Suicidal ideation Disposition: ADMITTED IP TO THIS HOSP Condition: Stable
[2018-01-27 18:30] LABS: Amphetamine Screen,Urine Not Detected (NotDetected); Barbiturate Screen,Urine Not Detected (NotDetected); Benzodiazepines Screen,Urine Not Detected (NotDetected); Cocaine Screen,Urine Not Detected (NotDetected); Methadone Screen, Urine Not Detected (NotDetected); Opiate Screen,Urine Not Detected (NotDetected); Oxycodone Screen, Urine Not Detected (NotDetected); Phencyclidine Screen,Urine Not Detected (NotDetected); Tricyclic Antidepressant,Urine Not Detected (NotDetected); Urn Cannabinoid Scrn Detected (NotDetected)
[2018-01-27] MEDS ORDERED: ACETAMINOPHEN TAB 325 MG TAB PO PRN (20:41)
[2018-01-27] MEDS ORDERED: MAG HYDROX/AL HYDROX/SIMETH 30 ML CUP PO PRN (20:41)
[2018-01-27] MEDS ORDERED: NAPROXEN 250 MG TAB PO PRN (20:46)
[2018-01-27] MEDS ORDERED: MAGNESIUM HYDROXIDE 2,400 MG/10 ML CUP PO PRN (20:50)
[2018-01-27] MEDS ORDERED: LORazepam 1 MG TAB PO STA (20:52)
[2018-01-27 21:16] LABS: Appearance,Urine Clear (Clear); Bilirubin,Urine Negative (Negative); Blood,Urine Negative (Negative); Color,Urine Yellow; Glucose,Urine (UA) Negative (Negative); Ketones,Urine Negative (Negative); Leukocyte Esterase,Urine Negative (Negative); Nitrite,Urine Negative (Negative); Protein,Urine Trace (Negative); Urobilinogen,Urine <2.0 mg/dL (<2.0)
[2018-01-27 21:40] VITALS: BMI 26.4
[2018-01-27] MEDS: hydrOXYzine PAMOATE 25 MG CAP PO PRN (22:47)
[2018-01-28 08:54] LABS: Basophils % (A) 1 %; Eosinophils # (A) 0.3 k/uL (0-0.7); Eosinophils % (A) 4 %; HCT 39.7 % (34.0-46.0); Lymphocytes # (A) 2.5 k/uL (1.0-4.8); Lymphocytes % (A) 39 %; MCH 28.8 pg (25.0-35.0); MCHC 32.8 g/dL (31.0-37.0); MCV 87.8 fL (80.0-100.0); Monocytes # (A) 0.4 k/uL (0-1.0); Monocytes % (A) 6 %; Neutrophils % (A) 47 %; Platelet Count 321 k/uL (150-450); RBC 4.52 m/uL (3.80-5.40); RDW 13.6 % (11.5-15.5); WBC 6.4 k/uL (3.8-10.6)
[2018-01-28 08:56] LABS: ALT 20 U/L (9-52); AST 19 U/L (14-36); Albumin 4.3 g/dL (3.5-5.0); Alkaline Phosphatase 40 U/L (38-126); Anion Gap 12 mmol/L; Blood Urea Nitrogen 28 mg/dL (7-17); Calcium 9.7 mg/dL (8.4-10.2); Carbon Dioxide 26 mmol/L (22-30); Chloride 105 mmol/L (98-107); Cholesterol 151 mg/dL (<200); Glucose 101 mg/dL (74-99); HDL Cholesterol 54 mg/dL (40-60); LDL Cholesterol,Calculated 82 mg/dL (0-99); Potassium 4.6 mmol/L (3.5-5.1); Sodium 143 mmol/L (137-145); Total Bilirubin 0.2 mg/dL (0.2-1.3); Total Protein 7.1 g/dL (6.3-8.2); Triglycerides 73 mg/dL (<150)
[2018-01-28] MEDS ORDERED: ESCITALOPRAM 20 MG TAB PO SCH (09:00)
[2018-01-28] MEDS ORDERED: NICOTINE 14MG/24HR PATCH TRANSDERM SCH (09:00)
[2018-01-28] MEDS: hydrOXYzine PAMOATE 25 MG CAP PO PRN (09:12)
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
[2018-01-28] MEDS: OXcarbazepine 300 MG TAB PO SCH ×2 (11:38→20:14)
--- NOTE | 2018-01-28 16:33 | CONS ---
CONSULTATION DATE OF SERVICE: 01/28/2018 REASON FOR CONSULTATION: Medical management. BRIEF HISTORY: Patient is a 22-year-old female patient with a history of anxiety and depression, post traumatic stress disorder, presented to the ED with the complaint that her medications are not working. Claimed for past 3 days she had been very depressed and had some suicidal ideation. Patient was admitted for further evaluation. During my evaluation, patient complained of some pain in the knee. Claims she has subluxation of the patellae. Usually uses knee brace, but it has not been working. Claims she wants her nicotine patch discontinued and substituted with Nicorette gum. PAST MEDICAL HISTORY: Significant for asthma, thyroid disease, endometriosis, polycystic ovary syndrome, history of opioid addiction, history of scoliosis. PAST SURGICAL HISTORY: Significant laparoscopic removal of left ovarian cyst and left knee surgery. PSYCHOSOCIAL HISTORY: Patient has history of anxiety, bipolar disorder, depression. SOCIAL HISTORY: Patient smokes daily. Also uses methamphetamines and history of opiate use. FAMILY HISTORY: Significant for history of asthma in father and heart arrhythmias. Mother has a history of DVT and thyroid disorders. PATIENT MEDICATIONS: Naprosyn 500 mg q.12 hours p.r.n., Lexapro 20 mg daily and Vistaril 25 mg daily p.r.n. She is allergic to BUSPAR. REVIEW OF SYSTEMS: CONSTITUTIONAL: Denies fever and chills. HEENT: No vision or speech changes. LUNGS/RESPIRATORY: No shortness of breath. No cough. CARDIOVASCULAR: No chest pain. No palpitations. ABDOMEN/GI: No nausea, vomiting, diarrhea. MUSCULOSKELETAL: As above. NEUROLOGICAL: No dizziness or lightheadedness. The rest of 14-point review of system was unremarkable. PHYSICAL EXAMINATION: VITAL SIGNS: Temperature at the time of presentation 98.3, pulse 123, respiration 20, blood pressure 126/65, O2 saturation 99%. The patient is awake, alert, oriented. She is in no acute distress. HEENT: Atraumatic, normocephalic. Pupils equal and reactive to light. Extraocular movements intact. Buccal mucosa is fair. NECK: Supple. No goiter, lymphadenopathy. JVD is negative. No carotid bruit heard. Lungs are clear to auscultation. No rales, rhonchi, or wheezes. Heart is regular rate and rhythm without any murmurs, gallop, rhythm. Abdomen is soft, nontender, nondistended. Bowel sounds positive. EXTREMITIES: Patient does have crepitations, range of motion left knee with some tenderness on the right. Pulses are palpable. NEUROLOGICAL EXAM: Cranial nerves 2 through 12 grossly intact. No gross motor or sensory deficit. LABS: Urine drug screen positive for marijuana. ASSESSMENT: 1. Nicotine abuse. 2. Chronic persistent asthma. 3. Hypothyroidism. 4. Degenerative joint disease. 5. Suicidal ideation. Patient claims that her thyroid testing has been unequivocal and she is scheduled to repeat thyroid testing in a month and no thyroid replacement therapy at this point. Also requesting Nicorette gum instead of a nicotine patch which gives her nightmares. Will resume all home medications. We will follow this patient with you and again we appreciate for this kind consultation. HOME / HEATHER: [id number] /
[2018-01-28 18:33] LABS: Hemoglobin A1C 4.8 % (4.0-6.0)
[2018-01-28] MEDS: NICOTINE POLACRILEX 2 MG GUM BUCCAL PRN (18:49)
[2018-01-29] MEDS ORDERED: ACETAMINOPHEN TAB 325 MG TAB PO PRN (05:18)
[2018-01-29] MEDS ORDERED: MAG HYDROX/AL HYDROX/SIMETH 30 ML CUP PO PRN (05:18)
[2018-01-29] MEDS: OXcarbazepine 300 MG TAB PO SCH ×2 (08:06→20:17)
[2018-01-29] MEDS: NICOTINE POLACRILEX 2 MG GUM BUCCAL PRN ×2 (08:38→15:23)
--- NOTE | 2018-01-29 12:49 | P.PN ---
Progress Note - Text Progress Note Date: 01/29/18 Patient was seen for routine follow-up examination. She slept well last night and feels refreshed and well today. Her mood is a lot stable, denies suicidal and homicidal ideas, side effects from medication etc. She attends her groups, socializes with peers and interacting with staff. This is a white ambulatory female with good hygiene. She is polite friendly cheerful and cooperative. She does not have any psychomotor agitation or retardation. Her speech is spontaneous relevant and goal-directed. Her mood is cheerful and affect is appropriate. She denies suicidal and homicidal ideas. She denies hallucinations and delusional thinking. She is well oriented with adequate memory concentration general fund of knowledge etc. Plan: Continue Trileptal, groups and consider early discharge.
[2018-01-29] MEDS: hydrOXYzine PAMOATE 25 MG CAP PO PRN (21:00)
[2018-01-30 05:36] VITALS: BP 108/55; PULSE 100; RESP 14; TEMP 98.3
--- NOTE | 2018-01-30 08:36 | P.DS ---
Providers Date of admission: 01/27/18 20:36 Expected date of discharge: 01/30/18 Attending physician: Isabelle Rodriguez Consults: 01/27/18 20:41 Consult Physician Routine Consulting Provider: Jimena Travis Consult Reason/Comments: H&P for mental health admission Do you want consulting provider notified?: Yes Primary care physician: [facility] Course: Patient had her physical examination, psychiatric evaluation and psychosocial evaluation. After psychiatric examination her condition was discussed with her and it was agreed to discontinue Lexapro and was started on Trileptal 300 mg twice a day for mood stabilization. Naproxen was continued at the higher dose for pain. She attended groups socialized with peers interacted with staff and got along well. Her mood became more cheerful/euthymic and became free of suicide thoughts. She did not engage in any self abusive behaviors either. She feels well enough and related it to go back to her living situation. Condition at discharge: This is a white ambulatory female with good hygiene. She is not wearing knee braces anymore and is able to ambulate without difficulty. She does not show any psychomotor agitation or retardation. Her speech is spontaneous relevant and goal-directed. Her mood is cheerful/ euthymic and affect is appropriate to the thought content. She denies suicidal and homicidal ideas. She denies hallucinations and delusional thinking. She is well oriented with good memory concentration general fund of knowledge etc. Her insight and judgment have improved quite substantially. Diagnosis on discharge: Adjustment disorder unspecified affect 43.20 Borderline personality disorder F 60.3. ALLERGY to BuSpar. History of bronchial asthma. History of subluxation of right patella. 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 Patient Condition at Discharge: Stable Plan - Discharge Summary Discharge Rx Participant: No New Discharge Prescriptions: New OXcarbazepine [Trileptal] 300 mg PO BID 30 Days #60 tab Continue hydrOXYzine PAMOATE [Vistaril] 25 mg PO DAILY PRN #30 capsule PRN Reason: Anxiety Naproxen [Naprosyn] 500 mg PO Q12HR PRN PRN Reason: Pain Discontinued Escitalopram [Lexapro] 20 mg PO DAILY #30 tab Discharge Medication List hydrOXYzine PAMOATE [Vistaril] 25 mg PO DAILY PRN #30 capsule 01/10/17 [Rx] Naproxen [Naprosyn] 500 mg PO Q12HR PRN 01/27/18 [History] OXcarbazepine [Trileptal] 300 mg PO BID 30 Days #60 tab 01/30/18 [Rx] Follow up Appointment(s)/Referral(s): Jackie Dawson MD [Primary Care Provider] - 1-2 days
[2018-01-30] MEDS: OXcarbazepine 300 MG TAB PO SCH (08:45)
[2018-01-30] MEDS: NICOTINE POLACRILEX 2 MG GUM BUCCAL PRN (08:46)
[2018-01-30] MEDS: hydrOXYzine PAMOATE 25 MG CAP PO PRN (09:25)
== END 2018-01-30 11:34 | disposition home or self-care (01) | DRG 882 ==
LOC: EC 16:48 → 3MHU 20:36
PROVIDERS: ADMIT Psychiatry & Neurology Psychiatry; ATTEND Psychiatry & Neurology Psychiatry
DX: F43.20 Adjustment disorder, unspecified (principal); R45.851 Suicidal ideations; F41.9 Anxiety disorder, unspecified; M41.9 Scoliosis, unspecified; F60.3 Borderline personality disorder; J45.20 Mild intermittent asthma, uncomplicated; E03.9 Hypothyroidism, unspecified; E28.2 Polycystic ovarian syndrome; F17.200 Nicotine dependence, unspecified, uncomplicated; M19.91 Primary osteoarthritis, unspecified site; F15.90 Other stimulant use, unspecified, uncomplicated; F11.21 Opioid dependence, in remission; Z79.899 Other long term (current) drug therapy; Z62.810 Personal history of physical and sexual abuse in childhood; Z88.8 Allergy status to other drugs, medicaments and biological substances; Z81.8 Family history of other mental and behavioral disorders
CPT/HCPCS: 80053; 80061; 80306; 81003; 81025; 82075; 83036; 84443; 85025; 99285

== ENCOUNTER 2018-05-24 11:23 | Emergency (ER) | payer BC ==
[2018-05-24 11:28] VITALS: RESP 18; TEMP 98.3
[2018-05-24] MEDS ORDERED: methylPREDNISolone SOD SUCCI 125 MG/2 ML VIAL IV STA (11:54)
[2018-05-24] MEDS ORDERED: SODIUM CHLORIDE 0.9% 1,000 ML IV STA (11:54)
[2018-05-24] MEDS ORDERED: IPRATROPIUM-ALBUTEROL 3 ML NEB INHALATION STA (11:54)
--- NOTE | 2018-05-24 11:57 | ED ---
SOB HPI - General Chief Complaint: Shortness of Breath Stated Complaint: Dx Bronchitis, SOB Time Seen by Provider: 05/24/18 11:40 Source: patient, RN notes reviewed, old records reviewed Mode of arrival: ambulatory Limitations: no limitations - History of Present Illness Initial Comments: Patient is a 22-year-old female. Patient presents transverse that she went shortness breath and cough. She reports the swelling of the past week. She saw her primary care provider 2 days ago started on steroids and inhalers. Patient states that her cough isn't productive. Last night she is having difficulty sleeping because when she would lay back she was feeling she was unable to breathe. Patient states she's had no fevers or chills. Denies any abdominal pain nausea or vomiting. Cough has been productive. She was a smoker. She states that she quit one week ago. - Related Data Home Medications Medication Instructions Recorded Confirmed Pedi Multivit No.25/Folic Acid 1 tab PO DAILY 05/24/18 05/24/18 [Flintstones Multivit Chew Tab] metFORMIN HCL [Glucophage] 500 mg PO BID 05/24/18 05/24/18 predniSONE 20 mg PO BID 05/24/18 05/24/18 Previous Rx's Medication Instructions Recorded hydrOXYzine PAMOATE [Vistaril] 25 mg PO DAILY PRN #30 capsule 01/10/17 OXcarbazepine [Trileptal] 300 mg PO BID 30 Days #60 tab 01/30/18 Azithromycin [Zithromax Z-pack] 250 mg PO DIRECTED #6 tab 05/24/18 Promethazine/Dextromethorphan 5 ml PO TID #120 ml 05/24/18 [Phenergan DM Syrup] predniSONE 50 mg PO DAILY #5 tablet 05/24/18 Allergies Allergy/AdvReac Type Severity Reaction Status Date / Time buspirone HCl [From BuSpar] AdvReac NUMBNESS Verified 05/24/18 11:48 Review of Systems ROS Statement: Those systems with pertinent positive or pertinent negative responses have been documented in the HPI. ROS Other: All systems not noted in ROS Statement are negative. Past Medical History Past Medical History: Asthma, Thyroid Disorder Additional Past Medical History / Comment(s): Mild intermittent asthma, endometriosis, polycystic ovarian syndrome, history of opioid addiction, states has scoliosis. History of Any Multi-Drug Resistant Organisms: None Reported Past Surgical History: Orthopedic Surgery Additional Past Surgical History / Comment(s): LAPAROSCOPIC REMOVAL LT OVARIAN CYST X 3, knee surgery left, right sublamation of petala on the right current Past Anesthesia/Blood Transfusion Reactions: No Reported Reaction Past Psychological History: Anxiety, Bipolar, Depression Smoking Status: Current every day smoker Past Alcohol Use History: None Reported Past Drug Use History: Methamphetamine, Opiates - Past Family History Father Family Medical History: Asthma Additional Family Medical History / Comment(s): Father is alive at age 44 with history of asthma and heart arrhythmia. Mother Family Medical History: Asthma, Deep Vein Thrombosis (DVT), Thyroid Disorder Additional Family Medical History / Comment(s): States she thinks her mother has a history of DVT. Sister(s) Family Medical History: No Reported History Additional Family Medical History / Comment(s): She has 3 sisters with no major medical problems. She does not have any brothers. She does not have any children. General Exam - General Exam Comments Initial Comments: This is a 22-year-old female. Alert and oriented. No significant distress. Limitations: no limitations Head exam: Present: atraumatic, normocephalic, normal inspection Eye exam: Present: normal appearance, PERRL, EOMI. Absent: scleral icterus, conjunctival injection, periorbital swelling ENT exam: Present: normal exam, mucous membranes moist Neck exam: Present: normal inspection. Absent: tenderness, meningismus, lymphadenopathy Respiratory exam: Present: wheezes (Patient has bilateral wheezing and rhonchi noted throughout all lung doherty.), rhonchi. Absent: normal lung sounds bilaterally, respiratory distress, rales, stridor Cardiovascular Exam: Present: regular rate, normal rhythm, normal heart sounds. Absent: systolic murmur, diastolic murmur, rubs, gallop, clicks Extremities exam: Present: normal inspection, full ROM, normal capillary refill. Absent: tenderness, pedal edema, joint swelling, calf tenderness Back exam: Present: normal inspection Neurological exam: Present: alert, oriented X3, CN II-XII intact Psychiatric exam: Present: normal affect, normal mood Skin exam: Present: warm, dry, intact, normal color. Absent: rash Course Vital Signs 05/24/18 05/24/18 05/24/18 11:24 12:12 12:28 Temperature 98.3 F Pulse Rate 89 94 92 Respiratory 18 Rate Blood Pressure 120/76 O2 Sat by Pulse 97 Oximetry - Reevaluation(s) Reevaluation #1: 05/24/18 13:53 Patient is reevaluated this time. She does have significant improvement of her wheezing and rhonchi. She does have some minor wheezing still noted. Pulse ox 100% on room air. Resting comfortably in bed and sleeping. Medical Decision Making - Medical Decision Making 22-year-old female with a history of recent diagnosis of bronchitis presents worsening shortness of breath today. She was started on 40 of prednisone yesterday by primary care physician. No steroids today. Patient lab work today shows no significant abnormalities. Her white blood cell count was 14, 000 however she was on steroids for the past 2 days. Patient chest x-rays reviewed and normal. Her oxygen saturation at 98% on room air. Initially and she's had quite significant rhonchi and wheezing. Given a double DuoNeb treatment has significant improvement. Patient's Perc score is 0. At this time I'll treat the Patient for continued bronchitis increasing the steroid is 50 mg a day, she has inhaler from her primary care physician. We'll also write the Patient for cough syrup and azithromycin. Patient understands treatment plan will comply. Return parameters were discussed. - Lab Data Result diagrams: 05/24/18 12:40 05/24/18 12:40 Lab Results 05/24/18 05/24/18 Range/Units 12:40 12:40 WBC 14.1 H (3.8-10.6) k/uL RBC 4.74 (3.80-5.40) m/uL Hgb 13.6 (11.4-16.0) gm/dL Hct 40.4 (34.0-46.0) % MCV 85.3 (80.0-100.0) fL MCH 28.7 (25.0-35.0) pg MCHC 33.6 (31.0-37.0) g/dL RDW 13.7 (11.5-15.5) % Plt Count 302 (150-450) k/uL Neutrophils % 69 % Lymphocytes % 26 % Monocytes % 4 % Eosinophils % 0 % Basophils % 0 % Neutrophils # 9.7 H (1.3-7.7) k/uL Lymphocytes # 3.7 (1.0-4.8) k/uL Monocytes # 0.5 (0-1.0) k/uL Eosinophils # 0.0 (0-0.7) k/uL Basophils # 0.0 (0-0.2) k/uL Sodium 140 (137-145) mmol/L Potassium 3.8 (3.5-5.1) mmol/L Chloride 105 (98-107) mmol/L Carbon Dioxide 20 L (22-30) mmol/L Anion Gap 15 mmol/L BUN 12 (7-17) mg/dL Creatinine 0.52 (0.52-1.04) mg/dL Est GFR (CKD-EPI)AfAm >90 (>60 ml/min/1.73 sqM) Est GFR (CKD-EPI)NonAf >90 (>60 ml/min/1.73 sqM) Glucose 99 (74-99) mg/dL Calcium 9.6 (8.4-10.2) mg/dL Magnesium 1.5 L (1.6-2.3) mg/dL Total Bilirubin 0.2 (0.2-1.3) mg/dL AST 17 (14-36) U/L ALT 32 (9-52) U/L Alkaline Phosphatase 45 (38-126) U/L Total Protein 7.3 (6.3-8.2) g/dL Albumin 4.7 (3.5-5.0) g/dL 05/24/18 13:55 EKG shows normal sinus rhythm normal voltage Care for LVH. In the normal. Cannot rule anterior infarct. Age-indeterminate. The degree of 79 bpm. Intervals 166. She adventist 80 ms. QTQTC 400/458 ms. - Radiology Data Radiology results: report reviewed Chest x-rays negative for acute disease. Disposition Clinical Impression: Bronchitis Disposition: HOME SELF-CARE Condition: Good Instructions: Acute Bronchitis (ED) Additional Instructions: Patient has a close follow-up with primary care physician. Continue the new dose of steroids and take antibiotic as prescribed. Continue inhalers and do breathing treatments as instructed. Return to emergency department if any alarming signs or symptoms occur. Prescriptions: Azithromycin [Zithromax Z-pack] 250 mg PO DIRECTED #6 tab predniSONE 50 mg PO DAILY #5 tablet Promethazine/Dextromethorphan [Phenergan DM Syrup] 5 ml PO TID #120 ml Is patient prescribed a controlled substance at d/c from ED?: No When asked, does pt state using other controlled substances?: No If prescribed controlled substance>3 days was MAPS reviewed?: No If opioid is for acute pain is fill amount 7 days or less?: No If Rx opioid, was Start Talking consent form obtained?: No Referrals: Jackie Dawson MD [Primary Care Provider] - 1-2 days Time of Disposition: 13:55
[2018-05-24 12:47] LABS: Basophils % (A) 0 %; Eosinophils % (A) 0 %; HCT 40.4 % (34.0-46.0); HGB 13.6 gm/dL (11.4-16.0); Lymphocytes # (A) 3.7 k/uL (1.0-4.8); Lymphocytes % (A) 26 %; MCH 28.7 pg (25.0-35.0); MCHC 33.6 g/dL (31.0-37.0); MCV 85.3 fL (80.0-100.0); Mean Platelet Volume 6.3; Monocytes # (A) 0.5 k/uL (0-1.0); Monocytes % (A) 4 %; Neutrophils # (A) 9.7 k/uL (1.3-7.7); Neutrophils % (A) 69 %; Platelet Count 302 k/uL (150-450); RBC 4.74 m/uL (3.80-5.40); RDW 13.7 % (11.5-15.5); WBC 14.1 k/uL (3.8-10.6)
--- NOTE | 2018-05-24 12:57 | XR ---
EXAMINATION TYPE: XR chest 2V DATE OF EXAM: 05/24/2018 COMPARISON: 10/25/2017 HISTORY: Chest pain TECHNIQUE: Frontal and lateral views of the chest are obtained. FINDINGS: There is no focal air space opacity. No evidence for pneumothorax. No pleural effusion. The cardiac silhouette size is within normal limits. The osseous structures are grossly intact. IMPRESSION: 1. No acute cardiopulmonary process.
[2018-05-24 13:00] LABS: ALT 32 U/L (9-52); AST 17 U/L (14-36); Albumin 4.7 g/dL (3.5-5.0); Alkaline Phosphatase 45 U/L (38-126); Anion Gap 15 mmol/L; Blood Urea Nitrogen 12 mg/dL (7-17); Calcium 9.6 mg/dL (8.4-10.2); Carbon Dioxide 20 mmol/L (22-30); Chloride 105 mmol/L (98-107); Glucose 99 mg/dL (74-99); Magnesium 1.5 mg/dL (1.6-2.3); Potassium 3.8 mmol/L (3.5-5.1); Sodium 140 mmol/L (137-145); Total Bilirubin 0.2 mg/dL (0.2-1.3); Total Protein 7.3 g/dL (6.3-8.2)
[2018-05-24] MEDS ORDERED: cefTRIAXone IN SWFI 1,000 MG/10 ML SYRINGE IVP STA (13:52)
[2018-05-24 14:06] VITALS: BP 125/62; PULSE 89
== END 2018-05-24 14:41 | disposition home or self-care (01) ==
LOC: EC 11:23
DX: J45.909 Unspecified asthma, uncomplicated (principal); Z87.891 Personal history of nicotine dependence; Z79.52 Long term (current) use of systemic steroids; Z79.84 Long term (current) use of oral hypoglycemic drugs; Z79.899 Other long term (current) drug therapy; Z88.8 Allergy status to other drugs, medicaments and biological substances; Z82.5 Family history of asthma and other chronic lower respiratory diseases
CPT/HCPCS: 36415; 94640; 93005; 80053; 83735; 85025; 87040; 71046; 99285; 96374; 96375; 96361; J2930; J0696

== ENCOUNTER → 2018-07-06 | Outpatient (CLI) | payer BC ==
[2018-07-06 10:35] LABS: Blood Urea Nitrogen 15 mg/dL (7-17)
--- NOTE | 2018-07-06 12:03 | CT ---
EXAMINATION TYPE: CT abdomen pelvis w con DATE OF EXAM: 07/06/2018 COMPARISON: 05/17/2016 HISTORY: 23-year-old female RLQ pain TECHNIQUE: Contiguous axial scanning of the abdomen and pelvis following administration of 100 ml Iso fernando 300 IV contrast. Delayed images through the kidneys and coronal/sagittal reconstructions perform ed. CT DLP: 983 mGycm Automated exposure control for dose reduction was used. FINDINGS: Heart is normal size without pericardial effusion. Lung bases clear without pleural effusion. No focal liver lesion or biliary ductal dilatation. Portal venous system is patent. Gallbladder, adrenal glands, kidneys, spleen, and pancreas appear within normal limits. No dilated small bowel, free fluid, or free air. Oral contrast has reached the ascending colon. There are scattered mild to moderate stool. No pericol onic inflammatory change. Low hanging cecum with segments of normal-appearing appendix visualized, for example, refer to axial image 59 and coronal image 33. No mesenteric or retroperitoneal lymphadenopathy. Mild circumferential bladder wall thickening may be secondary to partial distention. Uterus and both ovaries are visualized. There is a 2.2 cm dominant follicle or functional cyst in the right ovary and some mild right adnexal and cul-de-sac free fluid noted. No pelvic lymphadenopathy seen. Bones: No osseous destructive process. IMPRESSION: 1. SEGMENTS OF A NORMAL APPENDIX ARE VISUALIZED. NO EVIDENCE FOR ACUTE APPENDICITIS. 2. A 2.2 CM DOMINANT FOLLICLE OR FUNCTIONAL CYST IN THE RIGHT OVARY WITH ADJACENT MILD RIGHT ADNEXAL AND CUL-DE-SAC FREE FLUID, LIKELY PHYSIOLOGIC CHANGES. 3. MILD CIRCUMFERENTIAL BLADDER WALL THICKENING MAY BE SECONDARY TO PARTIAL DISTENTION OR CYSTITIS. C LINICALLY CORRELATE.
== END | disposition home or self-care (01) ==
LOC: RADCTMAIN 09:50
PROVIDERS: ATTEND Nurse Practitioner Family
DX: N32.89 Other specified disorders of bladder (principal)
CPT/HCPCS: 82565; 84520; 74177; Q9967

== ENCOUNTER 2018-07-23 13:29 | Emergency (ER) | payer BC ==
[2018-07-23] MEDS ORDERED: DIPH,PERTUS(ACELL)TETVAC-LF 0.5 ML VIAL IM ONE (14:12)
[2018-07-23] MEDS ORDERED: LIDOCAINE 1% INJ 10MG/ML (20 ML MDV) SQ ONE (14:12)
--- NOTE | 2018-07-23 14:23 | ED ---
General Adult HPI - General Chief complaint: Wound/Laceration Stated complaint: Laceration on Left Foot Time Seen by Provider: 07/23/18 13:57 Source: patient, RN notes reviewed Mode of arrival: ambulatory Limitations: no limitations - History of Present Illness Initial comments: 23-year-old female presents to the emergency department for a chief complaint of laceration 4 hours. Patient states that she was holding up mirror that had a chip in the corner of it. She states that earlier today she dropped the mirror on her foot and the chipped corner caused a small laceration. Patient had just gotten out of the shower and was barefoot. Patient states that she wasn 't going to come into the emergency department but she then went to work and bled through her sock. She states her boss wanted her to be evaluated. Patient is not up-to-date on tetanus. Patient is able to walk on the foot without difficulty. Patient has no other complaints at this time including shortness of breath, chest pain, abdominal pain, nausea or vomiting, headache, or visual changes. - Related Data Home Medications Medication Instructions Recorded Confirmed Pedi Multivit No.25/Folic Acid 1 tab PO DAILY 05/24/18 05/24/18 [Flintstones Multivit Chew Tab] metFORMIN HCL [Glucophage] 500 mg PO BID 05/24/18 05/24/18 predniSONE 20 mg PO BID 05/24/18 05/24/18 Previous Rx's Medication Instructions Recorded hydrOXYzine PAMOATE [Vistaril] 25 mg PO DAILY PRN #30 capsule 01/10/17 OXcarbazepine [Trileptal] 300 mg PO BID 30 Days #60 tab 01/30/18 Azithromycin [Zithromax Z-pack] 250 mg PO DIRECTED #6 tab 05/24/18 Promethazine/Dextromethorphan 5 ml PO TID #120 ml 05/24/18 [Phenergan DM Syrup] predniSONE 50 mg PO DAILY #5 tablet 05/24/18 Allergies Allergy/AdvReac Type Severity Reaction Status Date / Time buspirone HCl [From BuSpar] AdvReac NUMBNESS Verified 05/24/18 11:48 Review of Systems ROS Statement: Those systems with pertinent positive or pertinent negative responses have been documented in the HPI. ROS Other: All systems not noted in ROS Statement are negative. Past Medical History Past Medical History: Asthma, Thyroid Disorder Additional Past Medical History / Comment(s): Mild intermittent asthma, endometriosis, polycystic ovarian syndrome, history of opioid addiction, states has scoliosis. History of Any Multi-Drug Resistant Organisms: None Reported Past Surgical History: Orthopedic Surgery Additional Past Surgical History / Comment(s): LAPAROSCOPIC REMOVAL LT OVARIAN CYST X 3, knee surgery left, right sublamation of petala on the right current Past Anesthesia/Blood Transfusion Reactions: No Reported Reaction Past Psychological History: Anxiety, Bipolar, Depression Smoking Status: Current every day smoker Past Alcohol Use History: Occasional - Past Family History Father Family Medical History: Asthma Additional Family Medical History / Comment(s): Father is alive at age 44 with history of asthma and heart arrhythmia. Mother Family Medical History: Asthma, Deep Vein Thrombosis (DVT), Thyroid Disorder Additional Family Medical History / Comment(s): States she thinks her mother has a history of DVT. Sister(s) Family Medical History: No Reported History Additional Family Medical History / Comment(s): She has 3 sisters with no major medical problems. She does not have any brothers. She does not have any children. General Exam Limitations: no limitations General appearance: alert, in no apparent distress Head exam: Present: atraumatic, normocephalic, normal inspection Eye exam: Present: normal appearance. Absent: scleral icterus, conjunctival injection ENT exam: Present: normal exam, mucous membranes moist Neck exam: Present: normal inspection, full ROM. Absent: tenderness, meningismus, lymphadenopathy Respiratory exam: Present: normal lung sounds bilaterally. Absent: respiratory distress, wheezes, rales, rhonchi, stridor Cardiovascular Exam: Present: regular rate, normal rhythm, normal heart sounds. Absent: systolic murmur, diastolic murmur, rubs, gallop, clicks Extremities exam: Present: full ROM (Full range of motion of the left foot including the first digit. Full flexion and extension of the MTP and IP joint in the left first digit.), tenderness (Mild tenderness over the laceration site. No tenderness elsewhere), normal capillary refill (Capillary refill less than 2 seconds and PT pulse 2+ in the left lower extremity), other (There is a small 1 cm laceration of the left dorsal first MTP joint. No foreign bodies noted. No spreading redness or drainage. No evidence of infection.). Absent: pedal edema, joint swelling, calf tenderness (Negative Homans sign, no swelling , erythema, increased warmth noted of the left calf) Neurological exam: Present: alert, oriented X3, CN II-XII intact, normal gait, other (Speech normal). Absent: motor sensory deficit (No obvious motor sensory deficit) Psychiatric exam: Present: normal affect, normal mood Course Vital Signs 07/23/18 13:43 Temperature 98.2 F Pulse Rate 84 Respiratory 16 Rate Blood Pressure 114/67 O2 Sat by Pulse 98 Oximetry Procedures - Laceration Laceration #1 Consent Obtained: verbal consent Indication: laceration Site: foot Size (cm): 1 Description: linear Depth: simple, single layer Anesthetic Used: lidocaine 1% Anesthesia Technique: local infiltration Amount (mls): 1 Pre-repair: wound explored, irrigated extensively (Soaked in soap and water and irrigated with saline pressure irrigation), deep structures intact Type of Sutures: other (Ethilon) Size of Sutures: 5-0 Number of Sutures: 2 Technique: simple, interrupted Patient Tolerated Procedure: well, no complications Medical Decision Making - Medical Decision Making 23-year-old female presents to the emergency department for a chief complaint of laceration 4 hours. Patient dropped a broken mirror on her foot. She was given tetanus here in the emergency department. She sustained a small 1 cm laceration to the left first dorsal MTP joint. Full range of motion. Neurovascular intact. No evidence of infection. X-ray negative for foreign bodies or fractures. I did speak with patient about options including glue versus sutures. Patient states she would rather have sutures because she thinks glue will not hold well and she does not wanted to come apart. Wound was cleaned extensively. Laceration was repaired with 2 simple interrupted sutures. It was then bandaged and bacitracin was applied. Patient was educated on signs of infection and to return if these or any other worsening symptoms occur. She was educated to return in 7-10 days to have sutures removed and to follow up with primary care for a wound recheck. Disposition Clinical Impression: Laceration Disposition: HOME SELF-CARE Condition: Good Instructions: Care For Your Stitches (ED), Laceration (ED) Additional Instructions: Please monitor for any signs of infection such as spreading redness, streaking redness, or drainage and return if these or any other worsening symptoms occur. Return in 7-10 days to have sutures removed. Follow up with primary care in 1 -2 days for a wound recheck. Is patient prescribed a controlled substance at d/c from ED?: No Referrals: Jackie Dawson MD [Primary Care Provider] - 1-2 days Time of Disposition: 15:21
--- NOTE | 2018-07-23 14:41 | XR ---
EXAMINATION TYPE: XR foot complete LT DATE OF EXAM: 07/23/2018 COMPARISON: NONE HISTORY: Laceration foot TECHNIQUE: 3 views FINDINGS: Metatarsals appear intact. I see no fracture nor dislocation. Joint spaces are normal. IMPRESSION: Negative left foot exam.
[2018-07-23 15:27] VITALS: BP 119/64; PULSE 77; RESP 18; TEMP 98.7
== END 2018-07-23 15:27 | disposition home or self-care (01) ==
LOC: EC 13:29
DX: S91.312A Laceration without foreign body, left foot, initial encounter (principal); J45.909 Unspecified asthma, uncomplicated; F17.200 Nicotine dependence, unspecified, uncomplicated; Z79.52 Long term (current) use of systemic steroids; Z79.84 Long term (current) use of oral hypoglycemic drugs; Z88.8 Allergy status to other drugs, medicaments and biological substances; Z23 Encounter for immunization; W25.XXXA Contact with sharp glass, initial encounter; Y92.009 Unspecified place in unspecified non-institutional (private) residence as the place of occurrence of the external cause
CPT/HCPCS: 73630; 90715; 99283; 12001; 90471; J2001

== ENCOUNTER → 2019-08-18 | Outpatient (CLI) | payer OTHER ==
[2019-08-18 10:52] LABS: Basophils % (A) 1 %; Eosinophils # (A) 0.1 k/uL (0-0.7); Eosinophils % (A) 1 %; HCT 40.6 % (34.0-46.0); Lymphocytes # (A) 2.7 k/uL (1.0-4.8); Lymphocytes % (A) 38 %; MCH 31.2 pg (25.0-35.0); MCHC 34.5 g/dL (31.0-37.0); MCV 90.4 fL (80.0-100.0); Mean Platelet Volume 5.5; Monocytes # (A) 0.4 k/uL (0-1.0); Monocytes % (A) 6 %; Neutrophils # (A) 3.7 k/uL (1.3-7.7); Neutrophils % (A) 52 %; Platelet Count 263 k/uL (150-450); RBC 4.49 m/uL (3.80-5.40); RDW 12.4 % (11.5-15.5); WBC 7.1 k/uL (3.8-10.6)
== END | disposition home or self-care (01) ==
LOC: LABPAT 09:51
PROVIDERS: ATTEND Obstetrics & Gynecology
DX: Z01.812 Encounter for preprocedural laboratory examination (principal); R10.2 Pelvic and perineal pain; N80.9 Endometriosis, unspecified
CPT/HCPCS: 36415; 85025

== ENCOUNTER 2019-09-03 06:13 | Day surgery (SDC) | payer BC, OTHER ==
--- NOTE | 2019-08-23 14:33 | HP ---
HISTORY AND PHYSICAL DATE OF SURGERY: 09/03/2019. HISTORY OF PRESENT ILLNESS: The patient is a 24-year-old, 0, para 0, who has a longstanding history of known endometriosis with multiple laparoscopies and ablation of endometriotic implants. Her last surgery was performed in July of 2017, at which time, there were some filmy adhesions seen in the pelvis, which were lysed as well as some implants of endometriosis ablated. She was seen by a washer off recently, who performed a hysterosalpingogram and sonohysterography demonstrating patent right fallopian tube, but the left fallopian tube appeared to be occluded. He suggested that there may be adhesions causing the occlusion. The patient continues to have pelvic pain at this time and wishes to proceed with diagnostic laparoscopy and possible operative laparoscopy with lysis of adhesions and/or ablation of endometriotic implants. Given the concern for her tubes, we will add chromopertubation as well to check for tubal patency. PAST MEDICAL HISTORY: Significant for endometriosis, asthma, and polycystic ovarian syndrome. PAST SURGICAL HISTORY: Significant for ovarian cystectomy, laparoscopically in 2016 as well as other laparoscopies around the same time. She additionally in the distant past had a left knee meniscus repair in 2006. There have been no apparent anesthetic concerns. OBSTETRICAL HISTORY: 0, para 0, with current no contraception in place as she would welcome a . GYNECOLOGIC HISTORY: Essentially unremarkable with no history of any infections to include STDs, though she does have a long-standing history of known and documented endometriosis as noted above. FAMILY HISTORY: Noncontributory. 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 She is a half a pack per day smoker and reports occasional alcohol and no other social concerns. CURRENT MEDICATIONS: Include an albuterol inhaler as needed and Trileptal 300 mg twice daily. ALLERGIES: BUSPAR caused an unknown reaction. REVIEW OF SYSTEMS: Confined to history of present illness. PHYSICAL EXAMINATION: Vital signs are stable and the patient is afebrile. In general, this is a well- developed, well-nourished white female in no acute distress. HEENT: Demonstrates PERRLA, EOMI, her oropharynx is clear. NECK: Supple without adenopathy and the thyroid is normal to palpation. Her heart has a regular rhythm and rate without murmur. Her lungs are clear to auscultation bilaterally in all doherty. Her abdomen is nondistended, has normoactive bowel sounds, soft, nontender, and without any palpable masses. Her extremities are without any cyanosis, clubbing, or edema and are nontender to palpation bilaterally. Pelvic examination demonstrates normal external genitalia and the [place] with normal vaginal mucosa and cervix. There is no cervical motion tenderness. The uterus is 4 to 5 weeks in size, mid plane, mobile, nontender, normal in shape. The adnexa are normal and nontender without mass bilaterally. ASSESSMENT AND PLAN: Chronic pelvic pain with endometriosis: We will plan to proceed with diagnostic laparoscopy and possible operative laparoscopy for potential adhesiolysis or ablation of endometriosis as needed. We will possibly employ the division she method should it be indicated. And lastly, we will also perform chromopertubation for tubal patency. The risks and complications of these procedures have been thoroughly discussed including the risks for bleeding, bleeding requiring transfusion, infection, and injury to local structures to specifically include the bowel, bladder, and ureters. She has understood all this and has agreed to proceed. We are scheduled for the above procedures on Tuesday, September 03, 2019. No identifiers available. MMODL / IJN: [id number] /
[2019-08-29 10:21] VITALS: BMI 24.9
[~2019-09-03 06:13] MED LIST changes: -HYDROmorphone 1 MG/ML 1 ML SYRINGE IVP PRN; +MIDAZOLAM 2 MG/2 ML VIAL IV PRN; -ONDANSETRON 4 MG/2 ML VIAL IVP ONE; +SCOPOLAMINE 1.5MG/72HR PATCH TRANSDERM ONE
[2019-09-03] MEDS: ONDANSETRON 4 MG/2 ML VIAL IVP ONE ×2 (06:56→09:15)
[2019-09-03] MEDS ORDERED: LACTATED RINGERS 1,000 ML IV ONE ×2 (07:00→08:26)
[2019-09-03] MEDS ORDERED: LIDOCAINE 1% 20 ML VIAL (10MG/ML) FOR IV START INTRADERMA ONE (07:01)
[2019-09-03] MEDS ORDERED: PROPOFOL 10 MG/ML 20 ML VIAL IV ONE (07:30)
[2019-09-03] MEDS ORDERED: ROCURONIUM BROMIDE 10 MG/ML 10 ML VIAL IV ONE (07:30)
[2019-09-03] MEDS ORDERED: NEOSTIGMINE 1 MG/ML 10 ML VIAL ONE (07:30)
[2019-09-03] MEDS ORDERED: fentaNYL (PF) 50 MCG/ML 2 ML AMP ONE (07:30)
[2019-09-03] MEDS ORDERED: KETOROLAC 30 MG/ML 1 ML VIAL ONE (07:30)
[2019-09-03] MEDS ORDERED: ACETAMINOPHEN IV (For NPO) 1,000 MG/100 ML VIAL ONE (07:30)
[2019-09-03] MEDS ORDERED: GLYCOPYRROLATE 0.2 MG/ML 2 ML VIAL ONE (07:30)
[2019-09-03] MEDS ORDERED: LIDOCAINE 1% INJ 10MG/ML (20 ML MDV) ONE (07:30)
[2019-09-03] MEDS ORDERED: MIDAZOLAM 2 MG/2 ML VIAL ONE (07:30)
[2019-09-03] MEDS ORDERED: METOCLOPRAMIDE 5 MG/ML 2 ML VIAL IVP PRN (07:39)
[2019-09-03] MEDS ORDERED: diphenhydrAMINE 50 MG/ML 1 ML VIAL IVP PRN (07:39)
[2019-09-03] MEDS ORDERED: KETOROLAC 30 MG/ML 1 ML VIAL IVP PRN (07:39)
[2019-09-03] MEDS ORDERED: ONDANSETRON 4 MG/2 ML VIAL IVP PRN (07:39)
[2019-09-03] MEDS ORDERED: SIMETHICONE 80 MG CHEWABLE PO PRN (07:39)
[2019-09-03] MEDS ORDERED: LACTATED RINGERS 1,000 ML IV SCH (07:45)
[2019-09-03] MEDS ORDERED: BUPIVACAINE (PF) 0.25% 30 ML VIAL SQ ONE ×2 (08:08→08:27)
[2019-09-03] MEDS ORDERED: METHYLENE BLUE 10 MG/ML (10 ML VIAL) IRRIGATION ONE (08:13)
--- NOTE | 2019-09-03 08:32 | P.OP ---
Date of Procedure: 09/03/19 Preoperative Diagnosis: 1. History of endometriosis #2. Chronic pelvic pain Postoperative Diagnosis: Same plus #3. Bilateral tubal patency confirmed Procedure(s) Performed: #1. Diagnostic and operative laparoscopy #2. Cautery of endometriotic implants #3. Chromopertubation Anesthesia: JENIFER Surgeon: Dereck Morris Estimated Blood Loss (ml): 5 IV fluids (ml): 800 Urine output (ml): 15 Pathology: none sent Condition: stable Disposition: PACU Operative Findings: Preoperative pelvic examination demonstrated a slightly retroverted mobile normal shaped uterus with normal adnexa bilaterally. Intraoperatively, there was some very mild filmy adhesions deep in the cul-de-sac. The left fallopian tube was somewhat adherent to the left ovary while the right tube and ovary were completely free. The left ovary was free and its fossa. There are number of peritoneal windows noted over the bladder and in the cul-de-sac. Those that were amenable to obliteration with cautery were cauterized using a [employer] bipolar cautery forceps. Several windows over the course of the ureters and on the bladder were unable to be cauterized. Pushing of diluted methylene blue through the uterine manipulator demonstrated bilateral tubal patency with blue dye seen leaking from both fallopian tubes. Description of Procedure: The patient was prepped and draped in usual fashion after general endotracheal anesthesia was administered by the anesthesiologist. A weighted speculum was placed and the bladder drained of approximately 15 mL of clear quan urine. The cervix was dilated to admit a kroner uterine manipulator which was placed without difficulty. Attention was then turned to the abdomen where a 5 mm incision was made through pre-existing scar in the umbilicus allowing insertion of a 5 mm optical trocar under direct visualization without difficulty. A pneumoperitoneum was established and Trendelenburg position utilized. As the pelvic organs appeared to be entirely free, the decision was made that the da Enrike tools were not necessary. Instead, a site was selected in the midline approximately 4-5 cm above the pubic symphysis where a roughly 5 mm incision was made in the transverse plane allowing insertion of a 5 mm trocar under direct vision station without difficulty. The blunt probe was utilized to sweep the bowel from the pelvis and the findings are as noted above. Close inspection didn't demonstrate a number of peritoneal windows primarily in the posterior cul-de-sac. There additionally several blebs on the uterus and cul-de-sac as well. All of the blebs were thoroughly cauterized with bipolar cautery. A number of the peritoneal windows were also cauterized. There were several in the cul-de-sac which could not be cauterized as they directly overlay the course of the ureter on each side. Examination of the bladder closely demonstrated small windows on the bladder is well which were left without cautery given potential danger to the bladder. After more thorough examination, no further pathology was noted. There was no significant degree of adhesions noted. Diluted methylene blue solution was attached to the kroner manipulator and dye gently pushed. Dye was seen leaking freely from each fallopian tube. All instrumentation was then removed and the pneumoperitoneum evacuated through the trocar sites. The incisions were closed with interrupted subcuticular stitches of 4-0 Vicryl followed by half-inch Steri-Strips placed with Mastisol. A total of 10 mL of quarter percent Marcaine without epinephrine was equally divided between the 2 incision sites. Total blood loss for the case was 5 mL or less. There were no complications. All sponge, instrument, and needle counts were correct. The patient tolerated the procedure well proceeded to the recovery room in stable condition.
[2019-09-03 08:43] VITALS: TEMP 97.6
[2019-09-03] MEDS: HYDROmorphone 0.5 MG/0.5 ML SYRINGE IVP PRN ×3 (08:53→09:15)
[2019-09-03] MEDS ORDERED: traMADol 50 MG TAB PO SCH (09:00)
[2019-09-03 10:06] VITALS: RESP 16
[2019-09-03 10:19] VITALS: BP 116/71; PULSE 72
[2019-09-04] MEDS ORDERED: ACETAMINOPHEN TAB 325 MG TAB PO PRN (07:41)
== END 2019-09-03 10:40 | disposition home or self-care (01) ==
LOC: OR 06:13
PROVIDERS: ATTEND Obstetrics & Gynecology
DX: N85.9 Noninflammatory disorder of uterus, unspecified (principal); Q52.8 Other specified congenital malformations of female genitalia; J45.909 Unspecified asthma, uncomplicated; E28.2 Polycystic ovarian syndrome; F17.210 Nicotine dependence, cigarettes, uncomplicated; Z79.899 Other long term (current) drug therapy; Z88.8 Allergy status to other drugs, medicaments and biological substances
CPT/HCPCS: 81025; 58662; 58350; J2250; J1100; J2710; J2405; J2001; Q9968; J3010; J1885; J0131; J2704; J1170

== ENCOUNTER 2019-10-20 09:37 | Emergency (ER) | payer OTHER ==
[2019-10-20 10:05] VITALS: RESP 18
[2019-10-20] MEDS ORDERED: DICYCLOMINE 10 MG/ML 2 ML AMP IM STA (10:15)
[2019-10-20] MEDS ORDERED: PANTOPRAZOLE 40 MG/10 ML VIAL IVP STA (10:15)
[2019-10-20] MEDS ORDERED: ONDANSETRON 4 MG/2 ML VIAL IVP STA (10:15)
[2019-10-20] MEDS ORDERED: SODIUM CHLORIDE 0.9% 1,000 ML IV STA (10:15)
--- NOTE | 2019-10-20 10:21 | ED ---
Abdominal Pain HPI - General Chief Complaint: Abdominal Pain Stated Complaint: Abd Pain Time Seen by Provider: 10/20/19 10:07 Source: patient Mode of arrival: ambulatory Limitations: no limitations - History of Present Illness Initial Comments: patient is a 24-year-old female history of endometriosis presenting to emergency Department with a chief complaint of abdominal pain nausea and diarrhea. Patient reports her symptoms began 3 days ago with epigastric abdominal pain that is constant. pain does not radiate anywhere. Denies any neck pain or chest pain. She reports nausea but no vomiting. states she is only able to keep fluids down but no solids.denies increased urgency frequency or dysuria. Denies any vaginal bleeding or discharge. Denies hematuria, hematochezia or melena. Reports the pain is not related to oral intake. patient does have a history of multiple laparoscopic surgeries for endometriosis. - Related Data Home Medications Medication Instructions Recorded Confirmed Loratadine 10 mg PO DAILY 08/29/19 08/29/19 Montelukast Sodium [Singulair] 10 mg PO DAILY 08/29/19 08/29/19 Multivitamins, Thera [Multivitamin 1 tab PO DAILY 08/29/19 08/29/19 (formulary)] Previous Rx's Medication Instructions Recorded OXcarbazepine [Trileptal] 300 mg PO BID 30 Days #60 tab 01/30/18 Omeprazole 40 mg PO DAILY #14 capsule. 10/20/19 Allergies Allergy/AdvReac Type Severity Reaction Status Date / Time buspirone HCl [From BuSpar] AdvReac NUMBNESS Verified 10/20/19 10:05 Review of Systems ROS Statement: Those systems with pertinent positive or pertinent negative responses have been documented in the HPI. ROS Other: All systems not noted in ROS Statement are negative. Past Medical History Past Medical History: Asthma, Thyroid Disorder Additional Past Medical History / Comment(s): Mild intermittent asthma, endometriosis, polycystic ovarian syndrome, history of opioid addiction, states has scoliosis. History of Any Multi-Drug Resistant Organisms: None Reported Past Surgical History: Orthopedic Surgery Additional Past Surgical History / Comment(s): LAPAROSCOPIC REMOVAL LT OVARIAN CYST X 3, knee surgery left, right sublamation of petala on the right current Past Anesthesia/Blood Transfusion Reactions: No Reported Reaction Past Psychological History: Anxiety, Bipolar, Depression Past Drug Use History: Methamphetamine, Opiates - Past Family History Father Family Medical History: Asthma Additional Family Medical History / Comment(s): Father is alive at age 44 with history of asthma and heart arrhythmia. Mother Family Medical History: Asthma, Thyroid Disorder Additional Family Medical History / Comment(s): States she thinks her mother has a history of DVT. Sister(s) Family Medical History: No Reported History Additional Family Medical History / Comment(s): She has 3 sisters with no major medical problems. She does not have any brothers. She does not have any children. General Exam Limitations: no limitations General appearance: alert, in no apparent distress Head exam: Present: atraumatic, normocephalic, normal inspection Eye exam: Present: normal appearance Pupils: Present: normal accommodation ENT exam: Present: normal exam, mucous membranes moist Neck exam: Present: normal inspection Respiratory exam: Present: normal lung sounds bilaterally Cardiovascular Exam: Present: regular rate, normal rhythm, normal heart sounds GI/Abdominal exam: Present: soft, tenderness (epigastric abdominal pain.), normal bowel sounds. Absent: distended, guarding, rebound, rigid, pulsatile mass, hernia Extremities exam: Present: normal inspection, full ROM Back exam: Present: normal inspection, full ROM Neurological exam: Present: alert, oriented X3 Psychiatric exam: Present: normal affect, normal mood Skin exam: Present: warm, dry, intact, normal color Course Vital Signs 10/20/19 10/20/19 10/20/19 10:04 12:00 12:30 Temperature 98.8 F Pulse Rate 112 H 72 74 Respiratory 18 18 18 Rate Blood Pressure 116/82 118/69 114/66 O2 Sat by Pulse 97 97 97 Oximetry 10/20/19 13:45 Temperature 98.2 F Pulse Rate 77 Respiratory 18 Rate Blood Pressure 119/66 O2 Sat by Pulse 99 Oximetry Medical Decision Making - Medical Decision Making patient is a 24-year-old female presenting to the emergency department with a chief complaint of epigastric abdominal pain is a ongoing for the past 3 days. Patient has nausea but no vomiting or diarrhea. Patient has decreased appetite. No fevers night sweats or chills. Patient does have history of endometriosis with the most recent procedure 2 months ago. Patient has multiple laparoscopic procedures for endometriosis.physical examination shows epigastric abdominal pain and is otherwise unremarkable.UA shows +1 ketones which I suspect are secondary to the decreased appetite. No signs of urinary tract infection or bleeding. CBC CMP unremarkable. CT of abdomen and pelvis ordered to rule out a possible hiatal hernia or any iatrogenic damage from her previous abdominal surgery. CT is unremarkable for any acute pathologies. patient is not . I suspect the patient has GERD. Patient advised to avoid eating acidic food and eating late at night. Patient advised to take prescribed medication as directed for 2 weeks. Patient advised to follow with primary care. Strict return parameters were thoroughly discussed the patient was understanding and agreeable. Case discussed with physician. - Lab Data Result diagrams: 10/20/19 10:45 10/20/19 10:45 Lab Results 10/20/19 10/20/19 10/20/19 Range/Units 10:30 10:30 10:45 WBC (3.8-10.6) k/uL RBC (3.80-5.40) m/uL Hgb (11.4-16.0) gm/dL Hct (34.0-46.0) % MCV (80.0-100.0) fL MCH (25.0-35.0) pg MCHC (31.0-37.0) g/dL RDW (11.5-15.5) % Plt Count (150-450) k/uL Neutrophils % % Lymphocytes % % Monocytes % % Eosinophils % % Basophils % % Neutrophils # (1.3-7.7) k/uL Lymphocytes # (1.0-4.8) k/uL Monocytes # (0-1.0) k/uL Eosinophils # (0-0.7) k/uL Basophils # (0-0.2) k/uL Sodium 140 (137-145) mmol/L Potassium 4.2 (3.5-5.1) mmol/L Chloride 107 (98-107) mmol/L Carbon Dioxide 23 (22-30) mmol/L Anion Gap 10 mmol/L BUN 20 H (7-17) mg/dL Creatinine 0.72 (0.52-1.04) mg/dL Est GFR (CKD-EPI)AfAm >90 (>60 ml/min/1.73 sqM) Est GFR (CKD-EPI)NonAf >90 (>60 ml/min/1.73 sqM) Glucose 78 (74-99) mg/dL Calcium 9.4 (8.4-10.2) mg/dL Total Bilirubin 0.5 (0.2-1.3) mg/dL AST 28 (14-36) U/L ALT 16 (4-34) U/L Alkaline Phosphatase 33 L (38-126) U/L Total Protein 6.9 (6.3-8.2) g/dL Albumin 4.3 (3.5-5.0) g/dL Amylase 39 (30-110) U/L Lipase 62 (23-300) U/L Urine Color Yellow Urine Appearance Cloudy H (Clear) Urine pH 5.5 (5.0-8.0) Ur Specific [place] 1.025 (1.001-1.035) Urine Protein Trace H (Negative) Urine Glucose (UA) Negative (Negative) Urine Ketones 1+ H (Negative) Urine Blood Negative (Negative) Urine Nitrite Negative (Negative) Urine Bilirubin Negative (Negative) Urine Urobilinogen 2.0 (<2.0) mg/dL Ur Leukocyte Esterase Negative (Negative) Urine RBC 1 (0-5) /hpf Urine WBC 6 H (0-5) /hpf Ur Squamous Epith Cells 6 H (0-4) /hpf Urine Bacteria Rare H (None) /hpf Urine Mucus Many H (None) /hpf Urine HCG, Qual Not Detected (Not Detectd) 10/20/19 Range/Units 10:45 WBC 4.4 (3.8-10.6) k/uL RBC 4.75 (3.80-5.40) m/uL Hgb 14.4 (11.4-16.0) gm/dL Hct 42.1 (34.0-46.0) % MCV 88.7 (80.0-100.0) fL MCH 30.4 (25.0-35.0) pg MCHC 34.2 (31.0-37.0) g/dL RDW 12.4 (11.5-15.5) % Plt Count 235 (150-450) k/uL Neutrophils % 57 % Lymphocytes % 30 % Monocytes % 8 % Eosinophils % 2 % Basophils % 1 % Neutrophils # 2.5 (1.3-7.7) k/uL Lymphocytes # 1.3 (1.0-4.8) k/uL Monocytes # 0.4 (0-1.0) k/uL Eosinophils # 0.1 (0-0.7) k/uL Basophils # 0.0 (0-0.2) k/uL Sodium (137-145) mmol/L Potassium (3.5-5.1) mmol/L Chloride (98-107) mmol/L Carbon Dioxide (22-30) mmol/L Anion Gap mmol/L BUN (7-17) mg/dL Creatinine (0.52-1.04) mg/dL Est GFR (CKD-EPI)AfAm (>60 ml/min/1.73 sqM) Est GFR (CKD-EPI)NonAf (>60 ml/min/1.73 sqM) Glucose (74-99) mg/dL Calcium (8.4-10.2) mg/dL Total Bilirubin (0.2-1.3) mg/dL AST (14-36) U/L ALT (4-34) U/L Alkaline Phosphatase (38-126) U/L Total Protein (6.3-8.2) g/dL Albumin (3.5-5.0) g/dL Amylase (30-110) U/L Lipase (23-300) U/L Urine Color Urine Appearance (Clear) Urine pH (5.0-8.0) Ur Specific [place] (1.001-1.035) Urine Protein (Negative) Urine Glucose (UA) (Negative) Urine Ketones (Negative) Urine Blood (Negative) Urine Nitrite (Negative) Urine Bilirubin (Negative) Urine Urobilinogen (<2.0) mg/dL Ur Leukocyte Esterase (Negative) Urine RBC (0-5) /hpf Urine WBC (0-5) /hpf Ur Squamous Epith Cells (0-4) /hpf Urine Bacteria (None) /hpf Urine Mucus (None) /hpf Urine HCG, Qual (Not Detectd) Disposition Clinical Impression: Epigastric abdominal pain Disposition: HOME SELF-CARE Condition: Stable Instructions (If sedation given, give patient instructions): Diet for Stomach Ulcers and Gastritis (ED), Gastroesophageal Reflux Disease (DC) Additional Instructions: Please avoid eating acidic foods. Do not eat late at night. Please take prescribed medication as directed. Please follow with primary care. Please return to emergency department if symptoms worsen. Prescriptions: Omeprazole 40 mg PO DAILY #14 capsule.dr Is patient prescribed a controlled substance at d/c from ED?: No Referrals: Jackie Dawson MD [Primary Care Provider] - 1-2 days Time of Disposition: 13:28
[2019-10-20 10:48] LABS: Appearance,Urine Cloudy (Clear); Bacteria,Urine Rare /hpf; Bilirubin,Urine Negative (Negative); Blood,Urine Negative (Negative); Color,Urine Yellow; Glucose,Urine (UA) Negative (Negative); Ketones,Urine 1+ (Negative); Leukocyte Esterase,Urine Negative (Negative); Mucus,Urine Many /hpf; Nitrite,Urine Negative (Negative); PH, Urine 5.5 (5.0-8.0); Protein,Urine Trace (Negative); RBC,Urine 1 /hpf (0-5); Specific Gravity,Urine 1.025 (1.001-1.035); Squamous Epithelial Cell,Urine 6 /hpf (0-4)
[2019-10-20 10:55] LABS: Basophils % (A) 1 %; Eosinophils # (A) 0.1 k/uL (0-0.7); Eosinophils % (A) 2 %; HCT 42.1 % (34.0-46.0); HGB 14.4 gm/dL (11.4-16.0); Lymphocytes # (A) 1.3 k/uL (1.0-4.8); Lymphocytes % (A) 30 %; MCH 30.4 pg (25.0-35.0); MCHC 34.2 g/dL (31.0-37.0); MCV 88.7 fL (80.0-100.0); Mean Platelet Volume 7.2; Monocytes # (A) 0.4 k/uL (0-1.0); Monocytes % (A) 8 %; Neutrophils # (A) 2.5 k/uL (1.3-7.7); Neutrophils % (A) 57 %; Platelet Count 235 k/uL (150-450); RBC 4.75 m/uL (3.80-5.40); RDW 12.4 % (11.5-15.5); WBC 4.4 k/uL (3.8-10.6)
[2019-10-20 11:13] LABS: ALT 16 U/L (4-34); AST 28 U/L (14-36); African American GFR (CKD) >90 (>60 ml/min/1.73 sqM); Albumin 4.3 g/dL (3.5-5.0); Alkaline Phosphatase 33 U/L (38-126); Amylase 39 U/L (30-110); Anion Gap 10 mmol/L; Blood Urea Nitrogen 20 mg/dL (7-17); Calcium 9.4 mg/dL (8.4-10.2); Carbon Dioxide 23 mmol/L (22-30); Chloride 107 mmol/L (98-107); Glucose 78 mg/dL (74-99); Non-African American GFR(CKD) >90 (>60 ml/min/1.73 sqM); Potassium 4.2 mmol/L (3.5-5.1); Sodium 140 mmol/L (137-145); Total Bilirubin 0.5 mg/dL (0.2-1.3); Total Protein 6.9 g/dL (6.3-8.2)
[2019-10-20] MEDS ORDERED: KETOROLAC 30 MG/ML 1 ML VIAL IVP STA (11:29)
--- NOTE | 2019-10-20 12:57 | CT ---
EXAMINATION TYPE: CT abdomen pelvis w con DATE OF EXAM: 10/20/2019 REFERENCE: Previous study dated 07/06/2018 HISTORY: epigastric abdominal pain HISTORY: Upper abdominal pain, radiating upwards CT DLP: 636.1 mGy Automated exposure control for dose reduction was used. TECHNIQUE: Helical acquisition through the abdomen and pelvis was obtained following the oral ingesti on of without Oral Contrast and following intravenous administration of 100 mL of Isovue 300. The bailey a was reformatted in axial, coronal and sagittal projections. FINDINGS: Visualized portions of the lungs are clear. There is no pleural or pericardial fluid. The heart is not enlarged. Within the abdomen, the liver, spleen and gallbladder are normal. Both adrenal glands are normal. Bot h kidneys demonstrate function and appear morphologically normal. The pancreas is unremarkable. There is no significant retroperitoneal, inguinal or iliac adenopathy. The uterus is unremarkable. There is follicular change within both ovaries there is irregular, 3 x 3. 5 cm cystic lesion adjacent to the right adnexa. There is no significant diverticular change and there is no radiographic evidence of diverticulitis. The appendix is not seen with certainty. There is no pericecal inflammatory change. Small bowel loops are of normal caliber. There is no free fluid and no free air. IMPRESSION: 1. NO ACUTE INFLAMMATORY PROCESS. 2. FAILURE TO VISUALIZE THE APPENDIX. 3. RIGHT ADNEXAL CYST. PELVIC ULTRASOUND WOULD BE SUGGESTED.
[2019-10-20 13:46] VITALS: BP 119/66; PULSE 77; TEMP 98.2
== END 2019-10-20 13:45 | disposition home or self-care (01) ==
LOC: EC 09:37
DX: R10.13 Epigastric pain (principal); R11.0 Nausea; R19.7 Diarrhea, unspecified; J45.909 Unspecified asthma, uncomplicated; Z79.899 Other long term (current) drug therapy; Z88.8 Allergy status to other drugs, medicaments and biological substances
CPT/HCPCS: 36415; 80053; 82150; 83690; 85025; 81001; 81025; 74177; 99284; 96374; 96375 ×2; 96361; 96372; J0500; J2405; J1885; C9113; Q9967

== ENCOUNTER 2020-03-09 20:44 | Emergency (ER) | payer OTHER ==
[2020-03-09 20:54] VITALS: RESP 18
--- NOTE | 2020-03-09 21:40 | ED ---
General Adult HPI - General Chief complaint: Abdominal Pain Stated complaint: Dizziness Time Seen by Provider: 03/09/20 20:58 Source: patient, RN notes reviewed, old records reviewed Mode of arrival: ambulatory Limitations: no limitations - History of Present Illness Initial comments: 23-year-old female patient presents to ED for evaluation approximate 5 days of nausea with a few episodes of emesis vomiting. Patient reports that she has had a mild amount of dizziness which comes and goes as well. Denies any abdominal pain, denies any vaginal bleeding. Patient does report that she was prescribed Zofran by her primary care provider. Patient states that she took a test today and it was positive. Last menstrual period was 01/22/20. Systemic: Pt denies fatigue, fever/chills, rash. Pt denies weakness, night sweats, weight loss. Neuro: Pt denies headache, visual disturbances, syncope or pre-syncope. HEENT: Pt denies ocular discharge or irritation, otalgia, rhinorrhea, pharyngitis or notable lymphadenopathy. Cardiopulmonary: Pt denies chest pain, SOB, heart palpitations, dyspnea on exertion. Abdominal/GI: Pt denies abdominal pain. : Pt denies dysuria, burning w/ urination, frequency/urgency. Denies new onset urinary or bowel incontinence. MSK: Pt denies myalgia, loss of strength or function in extremities. Neuro: Pt denies new onset weakness, paresthesias. - Related Data Home Medications Medication Instructions Recorded Confirmed Loratadine 10 mg PO DAILY 08/29/19 08/29/19 Montelukast Sodium [Singulair] 10 mg PO DAILY 08/29/19 08/29/19 Multivitamins, Thera [Multivitamin 1 tab PO DAILY 08/29/19 08/29/19 (formulary)] Previous Rx's Medication Instructions Recorded OXcarbazepine [Trileptal] 300 mg PO BID 30 Days #60 tab 01/30/18 Omeprazole 40 mg PO DAILY #14 capsule. 10/20/19 Doxylamine/Pyridoxine HCl (B6) 1 each PO Q12HR PRN #20 tablet. 03/09/20 [Tiff Messer 10-10 mg Tablet] Pnv No.95/Ferrous Fum/Folic AC 1 each PO Q24HR 30 Days #30 tablet 03/09/20 [ Multivitamin Tablet] Allergies Allergy/AdvReac Type Severity Reaction Status Date / Time buspirone HCl [From BuSpar] AdvReac NUMBNESS Verified 10/20/19 10:05 Review of Systems ROS Statement: Those systems with pertinent positive or pertinent negative responses have been documented in the HPI. ROS Other: All systems not noted in ROS Statement are negative. Past Medical History Past Medical History: Asthma, Thyroid Disorder Additional Past Medical History / Comment(s): Mild intermittent asthma, endometriosis, polycystic ovarian syndrome, history of opioid addiction, states has scoliosis. History of Any Multi-Drug Resistant Organisms: None Reported Past Surgical History: Orthopedic Surgery Additional Past Surgical History / Comment(s): LAPAROSCOPIC REMOVAL LT OVARIAN CYST X 3, knee surgery left, right sublamation of petala on the right current Past Anesthesia/Blood Transfusion Reactions: No Reported Reaction Past Psychological History: Anxiety, Bipolar, Depression Smoking Status: Former smoker Past Alcohol Use History: None Reported Past Drug Use History: Marijuana - Past Family History Father Family Medical History: Asthma Additional Family Medical History / Comment(s): Father is alive at age 44 with history of asthma and heart arrhythmia. Mother Family Medical History: Asthma, Thyroid Disorder Additional Family Medical History / Comment(s): States she thinks her mother has a history of DVT. Sister(s) Family Medical History: No Reported History Additional Family Medical History / Comment(s): She has 3 sisters with no major medical problems. She does not have any brothers. She does not have any children. General Exam - General Exam Comments Initial Comments: Constitutional: NAD, AOX3, Pt has pleasant affect. HEENT: NC/AT, trachea midline, neck supple, no lymphadenopathy. Posterior pharynx non erythematous, without exudates. External ears appear normal, without discharge. Mucous membranes moist. Eyes PERRLA, EOM intact. There is no scleral icterus. No pallor noted. Cardiopulmonary: RRR, no murmurs, rubs or gallops, no JVD noted. Lungs CTAB in anterior and posterior doherty. No peripheral edema. Abdominal exam: Abdomen soft and non-distended. Abdomen non-tender to palpation in all 4 quadrants. Bowel sounds active in LLQ. No hepatosplenomegaly. No ecchymosis Neuro: CN II-XII intact. No nuchal rigidity. No raccon eyes, no norwood sign, no hemotympanum. No cervical spinal tenderness. MSK: No posterior calf tenderness bilaterally, homans sign negative bilaterally. Posterior tibialis and radial pulse +2 bilaterally. Sensation intact in upper and lower extremities. Full active ROM in upper and lower extremities, 5/5 stregnth. Limitations: no limitations Course Vital Signs 03/09/20 03/09/20 20:50 23:56 Temperature 98.1 F 98.6 F Pulse Rate 81 80 Respiratory 18 18 Rate Blood Pressure 126/83 122/78 O2 Sat by Pulse 99 100 Oximetry Medical Decision Making - Medical Decision Making 23-year-old female patient presents to ED for evaluation approximate 5 days of nausea with a few episodes of emesis vomiting. Patient reports that she has had a mild amount of dizziness which comes and goes as well. Denies any abdominal pain, denies any vaginal bleeding. Patient does report that she was prescribed Zofran by her primary care provider. Patient states that she took a test today and it was positive. Last menstrual period was 01/22/20. Visual doherty are stable. Afebrile. Physical exam didn't display acute pathology. Abdomen soft and nontender. Laboratory investigations were obtained around nonimpressive. HCG in urine was positive. HCG quantatative appropriate. Transvaginal ultrasound displayed single living intrauterine fetus, no coughing process seen. EKG is nonischemic. Patient reports that she is feeling much improved. She denies any vaginal bleeding. We'll discharge for follow-up with her previously established [facility] or return to ER if condition worsens. Case discussed with Dr. Malone. - Lab Data Result diagrams: 03/09/20 20:25 03/09/20 20:25 Lab Results 03/09/20 03/09/20 03/09/20 Range/Units 20:25 20:25 20:25 WBC 10.5 (3.8-10.6) k/uL RBC 4.46 (3.80-5.40) m/uL Hgb 13.8 (11.4-16.0) gm/dL Hct 40.3 (34.0-46.0) % MCV 90.5 (80.0-100.0) fL MCH 31.0 (25.0-35.0) pg MCHC 34.2 (31.0-37.0) g/dL RDW 12.5 (11.5-15.5) % Plt Count 267 (150-450) k/uL Neutrophils % 60 % Lymphocytes % 31 % Monocytes % 5 % Eosinophils % 1 % Basophils % 0 % Neutrophils # 6.3 (1.3-7.7) k/uL Lymphocytes # 3.3 (1.0-4.8) k/uL Monocytes # 0.6 (0-1.0) k/uL Eosinophils # 0.1 (0-0.7) k/uL Basophils # 0.0 (0-0.2) k/uL Sodium 136 L (137-145) mmol/L Potassium 3.5 (3.5-5.1) mmol/L Chloride 102 (98-107) mmol/L Carbon Dioxide 25 (22-30) mmol/L Anion Gap 9 mmol/L BUN 10 (7-17) mg/dL Creatinine 0.60 (0.52-1.04) mg/dL Est GFR (CKD-EPI)AfAm >90 (>60 ml/min/1.73 sqM) Est GFR (CKD-EPI)NonAf >90 (>60 ml/min/1.73 sqM) Glucose 84 (74-99) mg/dL Calcium 10.1 (8.4-10.2) mg/dL Total Bilirubin 0.4 (0.2-1.3) mg/dL AST 18 (14-36) U/L ALT 10 (4-34) U/L Alkaline Phosphatase 36 L (38-126) U/L Total Protein 7.7 (6.3-8.2) g/dL Albumin 4.8 (3.5-5.0) g/dL HCG, Quant 35479.9 mIU/mL Urine Color Urine Appearance (Clear) Urine pH (5.0-8.0) Ur Specific [place] (1.001-1.035) Urine Protein (Negative) Urine Glucose (UA) (Negative) Urine Ketones (Negative) Urine Blood (Negative) Urine Nitrite (Negative) Urine Bilirubin (Negative) Urine Urobilinogen (<2.0) mg/dL Ur Leukocyte Esterase (Negative) Urine RBC (0-5) /hpf Urine WBC (0-5) /hpf Ur Squamous Epith Cells (0-4) /hpf Urine Mucus (None) /hpf Urine HCG, Qual (Not Detectd) 03/09/20 03/09/20 Range/Units 21:20 21:20 WBC (3.8-10.6) k/uL RBC (3.80-5.40) m/uL Hgb (11.4-16.0) gm/dL Hct (34.0-46.0) % MCV (80.0-100.0) fL MCH (25.0-35.0) pg MCHC (31.0-37.0) g/dL RDW (11.5-15.5) % Plt Count (150-450) k/uL Neutrophils % % Lymphocytes % % Monocytes % % Eosinophils % % Basophils % % Neutrophils # (1.3-7.7) k/uL Lymphocytes # (1.0-4.8) k/uL Monocytes # (0-1.0) k/uL Eosinophils # (0-0.7) k/uL Basophils # (0-0.2) k/uL Sodium (137-145) mmol/L Potassium (3.5-5.1) mmol/L Chloride (98-107) mmol/L Carbon Dioxide (22-30) mmol/L Anion Gap mmol/L BUN (7-17) mg/dL Creatinine (0.52-1.04) mg/dL Est GFR (CKD-EPI)AfAm (>60 ml/min/1.73 sqM) Est GFR (CKD-EPI)NonAf (>60 ml/min/1.73 sqM) Glucose (74-99) mg/dL Calcium (8.4-10.2) mg/dL Total Bilirubin (0.2-1.3) mg/dL AST (14-36) U/L ALT (4-34) U/L Alkaline Phosphatase (38-126) U/L Total Protein (6.3-8.2) g/dL Albumin (3.5-5.0) g/dL HCG, Quant mIU/mL Urine Color Light Yellow Urine Appearance Cloudy H (Clear) Urine pH 6.5 (5.0-8.0) Ur Specific [place] 1.010 (1.001-1.035) Urine Protein Negative (Negative) Urine Glucose (UA) Negative (Negative) Urine Ketones Negative (Negative) Urine Blood Negative (Negative) Urine Nitrite Negative (Negative) Urine Bilirubin Negative (Negative) Urine Urobilinogen <2.0 (<2.0) mg/dL Ur Leukocyte Esterase Negative (Negative) Urine RBC <1 (0-5) /hpf Urine WBC 1 (0-5) /hpf Ur Squamous Epith Cells 9 H (0-4) /hpf Urine Mucus Rare H (None) /hpf Urine HCG, Qual Detected (Not Detectd) - EKG Data -: EKG Interpreted by Me (and Dr. Malone ) EKG Comments: Ventricular rate 76, TX interval 148, QRS 80, QT/QTC 384/432. Normal sensory enzymes are admitted. Possible left atrial enlargement. No concern for acute ischemia at this time. Disposition Clinical Impression: , Nausea & vomiting Disposition: HOME SELF-CARE Condition: Stable Instructions (If sedation given, give patient instructions): (ED) Additional Instructions: Follow-up with [facility] that you were previously established with tomorrow. Do not take Zofran. If necessary use diclegis for nausea. Take vitamins. Return to ER if condition worsens in any way. Follow-up with primary care provider in 1-2 days. Prescriptions: Doxylamine/Pyridoxine HCl (B6) [Tiff Messer 10-10 mg Tablet] 1 each PO Q12HR PRN #20 tablet. PRN Reason: nausea Pnv No.95/Ferrous Fum/Folic AC [ Multivitamin Tablet] 1 each PO Q24HR 30 Days #30 tablet Is patient prescribed a controlled substance at d/c from ED?: No Referrals: Jackie Dawson MD [Primary Care Provider] - 1-2 days
[2020-03-09 21:48] LABS: Basophils % (A) 0 %; Eosinophils # (A) 0.1 k/uL (0-0.7); Eosinophils % (A) 1 %; HCT 40.3 % (34.0-46.0); HGB 13.8 gm/dL (11.4-16.0); Lymphocytes # (A) 3.3 k/uL (1.0-4.8); Lymphocytes % (A) 31 %; MCHC 34.2 g/dL (31.0-37.0); MCV 90.5 fL (80.0-100.0); Mean Platelet Volume 7.1; Monocytes # (A) 0.6 k/uL (0-1.0); Monocytes % (A) 5 %; Neutrophils # (A) 6.3 k/uL (1.3-7.7); Neutrophils % (A) 60 %; Platelet Count 267 k/uL (150-450); RBC 4.46 m/uL (3.80-5.40); RDW 12.5 % (11.5-15.5); WBC 10.5 k/uL (3.8-10.6)
[2020-03-09 21:49] LABS: Appearance,Urine Cloudy (Clear); Bilirubin,Urine Negative (Negative); Blood,Urine Negative (Negative); Color,Urine Light Yellow; Glucose,Urine (UA) Negative (Negative); Ketones,Urine Negative (Negative); Leukocyte Esterase,Urine Negative (Negative); Mucus,Urine Rare /hpf; Nitrite,Urine Negative (Negative); PH, Urine 6.5 (5.0-8.0); Protein,Urine Negative (Negative); RBC,Urine <1 /hpf (0-5); Squamous Epithelial Cell,Urine 9 /hpf (0-4); Urobilinogen,Urine <2.0 mg/dL (<2.0); WBC,Urine 1 /hpf (0-5)
[2020-03-09 21:56] LABS: ALT 10 U/L (4-34); AST 18 U/L (14-36); African American GFR (CKD) >90 (>60 ml/min/1.73 sqM); Albumin 4.8 g/dL (3.5-5.0); Alkaline Phosphatase 36 U/L (38-126); Anion Gap 9 mmol/L; Blood Urea Nitrogen 10 mg/dL (7-17); Calcium 10.1 mg/dL (8.4-10.2); Carbon Dioxide 25 mmol/L (22-30); Chloride 102 mmol/L (98-107); Glucose 84 mg/dL (74-99); Non-African American GFR(CKD) >90 (>60 ml/min/1.73 sqM); Potassium 3.5 mmol/L (3.5-5.1); Sodium 136 mmol/L (137-145); Total Bilirubin 0.4 mg/dL (0.2-1.3); Total Protein 7.7 g/dL (6.3-8.2)
--- NOTE | 2020-03-09 23:09 | US ---
EXAMINATION TYPE: Transabdominal DATE OF EXAM: 03/09/2020 10:48 PM COMPARISON: NONE CLINICAL HISTORY: confirm iup. Confirm IUP EXAM PERFORMED: Transvaginal (TV) and Transabdominal (TA) EXAM MEASUREMENTS: GESTATIONAL AGE / DATING Physician Established: Not yet established Dates by LMP: (6 weeks/5 days) EDC: 10/28/2020 Dates by First Scan: No previous this is first scan Dates by Current Scan for: ( 6 weeks/0 days) EDC: 11/02/2020 MATERNAL ANATOMY Uterus: 9.4 x 4.7 x 6.2 cm Right Ovary: 3.3 x 1.8 x 2.6 cm Left Ovary: Obscured by bowel gas. Post CDS / Adnexa: wnl Presence of free fluid: no Presence of corpus luteal cyst: no Presence of subchorionic bleed: no GESTATION / SURVEY CRL: 0.34 cm (6 weeks/0 days) Yolk Sac (normal less than 6mm): 2 mm Heart Rate: 162 bpm Rhythm: Normal IUP: Viable IUP Beta HcG (if available): Not available at this time IMPRESSION: Single living intrauterine fetus. No complicating process seen.
[2020-03-09 23:57] VITALS: BP 122/78; PULSE 80; TEMP 98.6
== END 2020-03-09 23:57 | disposition home or self-care (01) ==
LOC: EC 20:44
DX: O21.9 Vomiting of pregnancy, unspecified (principal); O99.511 Diseases of the respiratory system complicating pregnancy, first trimester; J45.20 Mild intermittent asthma, uncomplicated; Z3A.01 Less than 8 weeks gestation of pregnancy; Z87.891 Personal history of nicotine dependence
CPT/HCPCS: 36415; 76801; 76817; 80053; 81001; 81025; 84702; 85025; 93005; 99285

== ENCOUNTER 2020-03-26 15:02 | Emergency (ER) | payer OTHER ==
[2020-03-26] MEDS ORDERED: SODIUM CHLORIDE 0.9% 1,000 ML IV STA ×2 (15:25)
[2020-03-26] MEDS ORDERED: METOCLOPRAMIDE 5 MG/ML 2 ML VIAL IVP STA (15:39)
[2020-03-26] MEDS ORDERED: diphenhydrAMINE 50 MG/ML 1 ML VIAL IVP STA (15:39)
[2020-03-26 16:05] LABS: Basophils % (A) 0 %; Eosinophils % (A) 0 %; HCT 39.1 % (34.0-46.0); HGB 13.1 gm/dL (11.4-16.0); Lymphocytes # (A) 2.1 k/uL (1.0-4.8); Lymphocytes % (A) 21 %; MCH 29.8 pg (25.0-35.0); MCHC 33.6 g/dL (31.0-37.0); MCV 88.8 fL (80.0-100.0); Monocytes # (A) 0.5 k/uL (0-1.0); Monocytes % (A) 5 %; Neutrophils # (A) 7.4 k/uL (1.3-7.7); Neutrophils % (A) 72 %; Platelet Count 237 k/uL (150-450); RBC 4.41 m/uL (3.80-5.40); RDW 12.5 % (11.5-15.5); WBC 10.3 k/uL (3.8-10.6)
--- NOTE | 2020-03-26 16:15 | ED ---
General Adult HPI - General Chief complaint: Nausea/Vomiting/Diarrhea Stated complaint: 9wk /vomiting Time Seen by Provider: 03/26/20 15:14 Source: patient, RN notes reviewed, old records reviewed Mode of arrival: ambulatory Limitations: no limitations - History of Present Illness Initial comments: Patient is a pleasant 24-year-old female proximally 9-1/2 weeks . She presents today for treatment of nausea and vomiting intermittently for the past few weeks. Patient states that she's not been able to keep any fluids down. Patient states that she has no significant abnormal bleeding or abdominal cramping. Patient [facility] is Dr. Ying. - Related Data Home Medications Medication Instructions Recorded Confirmed Loratadine 10 mg PO DAILY 08/29/19 08/29/19 Montelukast Sodium [Singulair] 10 mg PO DAILY 08/29/19 08/29/19 Multivitamins, Thera [Multivitamin 1 tab PO DAILY 08/29/19 08/29/19 (formulary)] Previous Rx's Medication Instructions Recorded OXcarbazepine [Trileptal] 300 mg PO BID 30 Days #60 tab 01/30/18 Omeprazole 40 mg PO DAILY #14 capsule. 10/20/19 Doxylamine/Pyridoxine HCl (B6) 1 each PO Q12HR PRN #20 tablet. 03/09/20 [Tiff Messer 10-10 mg Tablet] Pnv No.95/Ferrous Fum/Folic AC 1 each PO Q24HR 30 Days #30 tablet 03/09/20 [ Multivitamin Tablet] Metoclopramide [Reglan] 10 mg PO ACHS #12 tab 03/26/20 Allergies Allergy/AdvReac Type Severity Reaction Status Date / Time buspirone HCl [From BuSpar] AdvReac NUMBNESS Verified 10/20/19 10:05 Review of Systems ROS Statement: Those systems with pertinent positive or pertinent negative responses have been documented in the HPI. ROS Other: All systems not noted in ROS Statement are negative. Past Medical History Past Medical History: Asthma, Thyroid Disorder Additional Past Medical History / Comment(s): Mild intermittent asthma, endometriosis, polycystic ovarian syndrome, history of opioid addiction, states has scoliosis. History of Any Multi-Drug Resistant Organisms: None Reported Past Surgical History: Orthopedic Surgery Additional Past Surgical History / Comment(s): LAPAROSCOPIC REMOVAL LT OVARIAN CYST X 3, knee surgery left, right sublamation of petala on the right current Past Anesthesia/Blood Transfusion Reactions: No Reported Reaction Past Psychological History: Anxiety, Bipolar, Depression Smoking Status: Former smoker Past Alcohol Use History: None Reported Past Drug Use History: Marijuana - Past Family History Father Family Medical History: Asthma Additional Family Medical History / Comment(s): Father is alive at age 44 with history of asthma and heart arrhythmia. Mother Family Medical History: Asthma, Thyroid Disorder Additional Family Medical History / Comment(s): States she thinks her mother has a history of DVT. Sister(s) Family Medical History: No Reported History Additional Family Medical History / Comment(s): She has 3 sisters with no major medical problems. She does not have any brothers. She does not have any children. General Exam - General Exam Comments Initial Comments: Alert and oriented 24-year-old female. No distress. Limitations: no limitations General appearance: alert, in no apparent distress Head exam: Present: atraumatic, normocephalic, normal inspection Eye exam: Present: normal appearance, PERRL, EOMI. Absent: scleral icterus, conjunctival injection, periorbital swelling ENT exam: Present: normal exam, mucous membranes moist Neck exam: Present: normal inspection. Absent: tenderness, meningismus, lymphadenopathy Respiratory exam: Present: normal lung sounds bilaterally. Absent: respiratory distress, wheezes, rales, rhonchi, stridor Cardiovascular Exam: Present: regular rate GI/Abdominal exam: Present: soft, normal bowel sounds. Absent: distended, tenderness, guarding, rebound, rigid Extremities exam: Present: normal inspection, full ROM, normal capillary refill. Absent: tenderness, pedal edema, joint swelling, calf tenderness Back exam: Present: normal inspection Course Vital Signs 03/26/20 15:21 Temperature 98.0 F Pulse Rate 72 Respiratory 18 Rate Blood Pressure 119/76 O2 Sat by Pulse 100 Oximetry Medical Decision Making - Medical Decision Making 24-year-old female presents for nausea and vomiting in early . She is approximately 9-1/2 weeks . Patient is having no abdominal significant cramping or vaginal bleeding. Patient's labwork was reviewed relatively unremarkable. She did have 1+ ketones consistent with dehydration. She is given IV fluids Reglan Benadryl reports she's feeling better at this time. heart tones were auscultated 1 76 bpm. Patient will be discharged at this time with follow-up with PCP. Patient is agreeable treatment plan will comply. - Lab Data Result diagrams: 03/26/20 15:48 03/26/20 15:48 Lab Results 03/26/20 03/26/20 03/26/20 Range/Units 15:48 15:48 16:22 WBC 10.3 (3.8-10.6) k/uL RBC 4.41 (3.80-5.40) m/uL Hgb 13.1 (11.4-16.0) gm/dL Hct 39.1 (34.0-46.0) % MCV 88.8 (80.0-100.0) fL MCH 29.8 (25.0-35.0) pg MCHC 33.6 (31.0-37.0) g/dL RDW 12.5 (11.5-15.5) % Plt Count 237 (150-450) k/uL Neutrophils % 72 % Lymphocytes % 21 % Monocytes % 5 % Eosinophils % 0 % Basophils % 0 % Neutrophils # 7.4 (1.3-7.7) k/uL Lymphocytes # 2.1 (1.0-4.8) k/uL Monocytes # 0.5 (0-1.0) k/uL Eosinophils # 0.0 (0-0.7) k/uL Basophils # 0.0 (0-0.2) k/uL Sodium 136 L (137-145) mmol/L Potassium 3.9 (3.5-5.1) mmol/L Chloride 102 (98-107) mmol/L Carbon Dioxide 24 (22-30) mmol/L Anion Gap 10 mmol/L BUN 7 (7-17) mg/dL Creatinine 0.39 L (0.52-1.04) mg/dL Est GFR (CKD-EPI)AfAm >90 (>60 ml/min/1.73 sqM) Est GFR (CKD-EPI)NonAf >90 (>60 ml/min/1.73 sqM) Glucose 83 (74-99) mg/dL Calcium 9.9 (8.4-10.2) mg/dL Urine Color Yellow Urine Appearance Clear (Clear) Urine pH 7.5 (5.0-8.0) Ur Specific [place] 1.018 (1.001-1.035) Urine Protein Negative (Negative) Urine Glucose (UA) Negative (Negative) Urine Ketones 1+ H (Negative) Urine Blood Negative (Negative) Urine Nitrite Negative (Negative) Urine Bilirubin Negative (Negative) Urine Urobilinogen <2.0 (<2.0) mg/dL Ur Leukocyte Esterase Negative (Negative) - Radiology Data Radiology results: report reviewed The heart tones are auscultated 1 76 bpm. Disposition Clinical Impression: Nausea and vomiting during Disposition: HOME SELF-CARE Condition: Good Instructions (If sedation given, give patient instructions): Nausea and Vomiting in (ED) Additional Instructions: Patient advised to have close follow-up with primary care doctor and OB. Return to ED if any alarming signs or symptoms occur. Prescriptions: Metoclopramide [Reglan] 10 mg PO ACHS #12 tab Is patient prescribed a controlled substance at d/c from ED?: No Referrals: Jackie Dawson MD [Primary Care Provider] - 1-2 days Time of Disposition: 17:14
[2020-03-26 16:16] LABS: African American GFR (CKD) >90 (>60 ml/min/1.73 sqM); Anion Gap 10 mmol/L; Blood Urea Nitrogen 7 mg/dL (7-17); Calcium 9.9 mg/dL (8.4-10.2); Carbon Dioxide 24 mmol/L (22-30); Chloride 102 mmol/L (98-107); Glucose 83 mg/dL (74-99); Non-African American GFR(CKD) >90 (>60 ml/min/1.73 sqM); Potassium 3.9 mmol/L (3.5-5.1); Sodium 136 mmol/L (137-145)
[2020-03-26 16:31] LABS: Appearance,Urine Clear (Clear); Bilirubin,Urine Negative (Negative); Blood,Urine Negative (Negative); Color,Urine Yellow; Glucose,Urine (UA) Negative (Negative); Ketones,Urine 1+ (Negative); Leukocyte Esterase,Urine Negative (Negative); Nitrite,Urine Negative (Negative); PH, Urine 7.5 (5.0-8.0); Protein,Urine Negative (Negative); Specific Gravity,Urine 1.018 (1.001-1.035); Urobilinogen,Urine <2.0 mg/dL (<2.0)
--- NOTE | 2020-03-26 16:52 | US ---
EXAMINATION TYPE: US OB limited DATE OF EXAM: 03/26/2020 COMPARISON: Prior ultrasound March 09, 2020. CLINICAL HISTORY: heart tones only. nausea, dehydration EXAM PERFORMED: Transabdominal (TA) GESTATIONAL AGE / DATING Physician Established: (9 weeks/1 days) EDC: 10/28/20 No growth performed on today?s study per ordering physician SURVEY HEART RATE: 176 bpm RHYTHM: Normal IMPRESSION: 2 images saved confirm single live intrauterine gestation with normal heart rate and rhy thm.
[2020-03-26 17:46] VITALS: BP 118/68; PULSE 79; RESP 16; TEMP 96.3
== END 2020-03-26 17:46 | disposition home or self-care (01) ==
LOC: EC 15:02
DX: O21.9 Vomiting of pregnancy, unspecified (principal); O26.831 Pregnancy related renal disease, first trimester; R82.4 Acetonuria; O99.89 Other specified diseases and conditions complicating pregnancy, childbirth and the puerperium; E86.0 Dehydration; O99.511 Diseases of the respiratory system complicating pregnancy, first trimester; J45.909 Unspecified asthma, uncomplicated; Z79.899 Other long term (current) drug therapy; Z88.8 Allergy status to other drugs, medicaments and biological substances; Z3A.09 9 weeks gestation of pregnancy; Z98.890 Other specified postprocedural states; Z87.891 Personal history of nicotine dependence; Z87.42 Personal history of other diseases of the female genital tract
CPT/HCPCS: 36415; 76815; 80048; 81003; 85025; 96361; 96374; 96375; 99284

== ENCOUNTER 2020-04-23 08:43 | Emergency (ER) | payer OTHER ==
[2020-04-23 08:49] VITALS: RESP 18; TEMP 97.9
[2020-04-23] MEDS ORDERED: SODIUM CHLORIDE 0.9% 1,000 ML IV ONE (09:18)
--- NOTE | 2020-04-23 09:24 | ED ---
General Adult HPI - General Chief complaint: Syncope Stated complaint: fall/13 wks preg Time Seen by Provider: 04/23/20 08:45 Source: patient, family, RN notes reviewed, old records reviewed Mode of arrival: wheelchair Limitations: no limitations - History of Present Illness Initial comments: This is a 24-year-old female presents emergency Department 13 weeks . Patient states she started had an ultrasound and had an intrauterine . Patient states this morning she was nauseated and vomited once and she also had a little bit of abdominal cramping which subsided. She was at home became lightheaded and decided to try to get to the bedroom and lay down but on her way there she became nauseated and then felt more lightheaded and eventually passed out. Patient states she did fall and hit her head and has a little neck pain. Patient states currently she has a mild headache there is no numbness weakness. There is no obvious bruising over the forehead where she hit. Patient does states she has some mild neck pain in the left side of her neck. Patient denies any other injury. Patient denies any chest pain difficulty breathing or shortness of breath. Patient denies any palpitations. Patient denies any abdominal pain currently. Patient denies any dysuria hematuria urinary frequency. - Related Data Home Medications Medication Instructions Recorded Confirmed Famotidine [Pepcid] 20 mg PO DAILY 04/23/20 04/23/20 Iin-Ubny-Kfeqv Acid 1 cap PO DAILY 04/23/20 04/23/20 [-U Capsule (formulary)] Sertraline HCl [Zoloft] 50 mg PO DAILY 04/23/20 04/23/20 Previous Rx's Medication Instructions Recorded Metoclopramide [Reglan] 10 mg PO ACHS #12 tab 03/26/20 Allergies Allergy/AdvReac Type Severity Reaction Status Date / Time buspirone HCl [From BuSpar] AdvReac NUMBNESS Verified 04/23/20 10:41 Review of Systems ROS Statement: Those systems with pertinent positive or pertinent negative responses have been documented in the HPI. ROS Other: All systems not noted in ROS Statement are negative. Past Medical History Past Medical History: Asthma, Thyroid Disorder Additional Past Medical History / Comment(s): Mild intermittent asthma, endometriosis, polycystic ovarian syndrome, history of opioid addiction, states has scoliosis. History of Any Multi-Drug Resistant Organisms: None Reported Past Surgical History: Orthopedic Surgery Additional Past Surgical History / Comment(s): LAPAROSCOPIC REMOVAL LT OVARIAN CYST X 3, knee surgery left, right sublamation of petala on the right current Past Anesthesia/Blood Transfusion Reactions: No Reported Reaction Past Psychological History: Anxiety, Bipolar, Depression Smoking Status: Former smoker Past Alcohol Use History: None Reported Past Drug Use History: Marijuana - Past Family History Father Family Medical History: Asthma Additional Family Medical History / Comment(s): Father is alive at age 44 with history of asthma and heart arrhythmia. Mother Family Medical History: Asthma, Thyroid Disorder Additional Family Medical History / Comment(s): States she thinks her mother has a history of DVT. Sister(s) Family Medical History: No Reported History Additional Family Medical History / Comment(s): She has 3 sisters with no major medical problems. She does not have any brothers. She does not have any children. General Exam - General Exam Comments Initial Comments: GENERAL: Patient is well-developed and well-nourished. Patient is nontoxic and well- hydrated and is in no acute distress. ENT: Neck is soft and supple. No significant lymphadenopathy is noted. Oropharynx is clear. Dry mucous membranes. EYES: The sclera were anicteric and conjunctiva were pink and moist. Extraocular movements were intact and pupils were equal round and reactive to light. Eyelids were unremarkable. PULMONARY: Unlabored respirations. Good breath sounds bilaterally. No audible rales rhonchi or wheezing was noted. CARDIOVASCULAR: There is a regular rate and rhythm without any murmurs gallops or rubs. ABDOMEN: Soft and nontender with normal bowel sounds. SKIN: Skin is clear with no lesions or rashes and otherwise unremarkable. NEUROLOGIC: Patient is alert and oriented x3. Cranial nerves II through XII are grossly intact. Motor and sensory are also intact. Normal speech, volume and content. Symmetrical smile. MUSCULOSKELETAL: Normal extremities with adequate strength and full range of motion. No lower extremity swelling or edema. No calf tenderness. LYMPHATICS: No significant lymphadenopathy is noted PSYCHIATRIC: Normal psychiatric evaluation. Limitations: no limitations Course Vital Signs 04/23/20 04/23/20 04/23/20 08:44 09:42 11:09 Temperature 97.9 F Pulse Rate 109 H 88 Pulse Rate [ 91 Sitting] Pulse Rate [ 92 Standing] Pulse Rate [ 92 Supine] Respiratory 18 18 Rate Blood Pressure 101/69 103/68 Blood Pressure 100/62 [Sitting] Blood Pressure 109/64 [Standing] Blood Pressure 102/62 [Supine] O2 Sat by Pulse 100 98 Oximetry Medical Decision Making - Medical Decision Making EKG shows normal sinus rhythm at 81 bpm MO interval is on a 46 QRS is 72 QT interval 36 QTC is 448. Patient's EKG shows no ST segment elevation or depression. Patient received a liter of fluids in the emergency department and was feeling considerably better. C-spine was done because she complained of some neck pain and it was negative. Patient did have full range motion of her neck. Patient ultrasound of her abdomen showed a single intrauterine with good growth from the last ultrasound. Patient also showed no signs of trauma. Patient has no complaints currently - Lab Data Result diagrams: 04/23/20 09:18 04/23/20 09:18 Lab Results 04/23/20 04/23/20 Range/Units 09:18 09:18 WBC 6.2 (3.8-10.6) k/uL RBC 4.13 (3.80-5.40) m/uL Hgb 12.3 (11.4-16.0) gm/dL Hct 36.7 (34.0-46.0) % MCV 88.8 (80.0-100.0) fL MCH 29.8 (25.0-35.0) pg MCHC 33.5 (31.0-37.0) g/dL RDW 13.1 (11.5-15.5) % Plt Count 216 (150-450) k/uL Neutrophils % 69 % Lymphocytes % 24 % Monocytes % 5 % Eosinophils % 1 % Basophils % 0 % Neutrophils # 4.3 (1.3-7.7) k/uL Lymphocytes # 1.5 (1.0-4.8) k/uL Monocytes # 0.3 (0-1.0) k/uL Eosinophils # 0.1 (0-0.7) k/uL Basophils # 0.0 (0-0.2) k/uL Sodium 134 L (137-145) mmol/L Potassium 4.0 (3.5-5.1) mmol/L Chloride 105 (98-107) mmol/L Carbon Dioxide 22 (22-30) mmol/L Anion Gap 7 mmol/L BUN 7 (7-17) mg/dL Creatinine 0.43 L (0.52-1.04) mg/dL Est GFR (CKD-EPI)AfAm >90 (>60 ml/min/1.73 sqM) Est GFR (CKD-EPI)NonAf >90 (>60 ml/min/1.73 sqM) Glucose 81 (74-99) mg/dL Calcium 9.0 (8.4-10.2) mg/dL Total Bilirubin 0.3 (0.2-1.3) mg/dL AST 21 (14-36) U/L ALT 10 (4-34) U/L Alkaline Phosphatase 28 L (38-126) U/L Total Protein 6.4 (6.3-8.2) g/dL Albumin 3.7 (3.5-5.0) g/dL Disposition Clinical Impression: Vasovagal syncope Disposition: HOME SELF-CARE Condition: Good Instructions (If sedation given, give patient instructions): Hypotension (ED) Is patient prescribed a controlled substance at d/c from ED?: No Referrals: Jackie Dawson MD [Primary Care Provider] - 1-2 days Time of Disposition: 11:24
[2020-04-23 09:39] LABS: Basophils % (A) 0 %; Eosinophils # (A) 0.1 k/uL (0-0.7); Eosinophils % (A) 1 %; HCT 36.7 % (34.0-46.0); HGB 12.3 gm/dL (11.4-16.0); Lymphocytes # (A) 1.5 k/uL (1.0-4.8); Lymphocytes % (A) 24 %; MCH 29.8 pg (25.0-35.0); MCHC 33.5 g/dL (31.0-37.0); MCV 88.8 fL (80.0-100.0); Mean Platelet Volume 6.9; Monocytes # (A) 0.3 k/uL (0-1.0); Monocytes % (A) 5 %; Neutrophils # (A) 4.3 k/uL (1.3-7.7); Neutrophils % (A) 69 %; Platelet Count 216 k/uL (150-450); RBC 4.13 m/uL (3.80-5.40); RDW 13.1 % (11.5-15.5); WBC 6.2 k/uL (3.8-10.6)
[2020-04-23 09:47] LABS: ALT 10 U/L (4-34); AST 21 U/L (14-36); African American GFR (CKD) >90 (>60 ml/min/1.73 sqM); Albumin 3.7 g/dL (3.5-5.0); Alkaline Phosphatase 28 U/L (38-126); Anion Gap 7 mmol/L; Blood Urea Nitrogen 7 mg/dL (7-17); Carbon Dioxide 22 mmol/L (22-30); Chloride 105 mmol/L (98-107); Glucose 81 mg/dL (74-99); Non-African American GFR(CKD) >90 (>60 ml/min/1.73 sqM); Sodium 134 mmol/L (137-145); Total Bilirubin 0.3 mg/dL (0.2-1.3); Total Protein 6.4 g/dL (6.3-8.2)
--- NOTE | 2020-04-23 10:00 | XR ---
EXAMINATION TYPE: XR cervical spine comp DATE OF EXAM: 04/23/2020 TECHNIQUE: Frontal, lateral, oblique, and open mouth view of the cervical spine are obtained. HISTORY: Trauma injury with neck pain. COMPARISON: None FINDINGS: The cervical spine is visualized in its entirety from C1 thru the top of T1 level, there i s reversal of normal cervical curvature centered at C5 level without evidence of acute fracture or di slocation. The pre-vertebral soft tissue appears within normal limits. The C1-C2 articulation is wi thin normal limits on the open mouth view. Vertebral body heights are maintained. Mild disc space mecca rowing C5-C6 level. The oblique images are within normal limits. Overlying soft tissue is unremarkab le. IMPRESSION: No acute fracture or dislocation is seen in the cervical spine.
[2020-04-23 11:15] VITALS: BP 103/68; PULSE 88
--- NOTE | 2020-04-23 11:20 | US ---
EXAMINATION TYPE: Transabdominal DATE OF EXAM: 04/23/2020 10:40 AM COMPARISON: Prior ultrasound March 09, 2020. CLINICAL HISTORY: Trauma . Patient states passing out today at home. Known first trimester . EXAM PERFORMED: Transabdominal (TA) EXAM MEASUREMENTS: GESTATIONAL AGE / DATING Physician Established: (13 weeks/1 days) EDC: 10/28/2020 Dates by LMP: (13 weeks/1 days) EDC: 10/28/2020 Dates by Current Scan for: (12 weeks/6 days) EDC: 10/30/2020 MATERNAL ANATOMY Uterus: 13.8 x 10.0 x 6.3 cm Right Ovary: 2.7 x 1.5 x 1.9 cm Left Ovary: 3.4 x 2.3 x 1.3 cm Post CDS / Adnexa: no free fluid Presence of free fluid: no Presence of corpus luteal cyst: no Presence of subchorionic bleed: no GESTATION / SURVEY CRL: 6.3 cm (12 weeks/6 days) MSD: seen, not measured Yolk Sac (normal less than 6mm): 3.3 mm Heart Rate: 155 bpm Rhythm: Normal IUP: Viable IUP Date of LMP: 01/22/2020, G1 Beta HcG (if available): Not available at this time Single live intrauterine gestation is redemonstrated as gestational sac, yolk sac, and pole are again seen. No free fluid in pelvis. Redemonstration of both ovaries without suspicious extraovarian adnexal mass. IMPRESSION: Persistent single live intrauterine gestation, mean crown-rump length 6.3 cm correspondin g to 12 weeks 6 day old fetus. Interval satisfactory growth noted. No posttraumatic complication iden tified.
== END 2020-04-23 11:49 | disposition home or self-care (01) ==
LOC: EC 08:43
DX: O99.341 Other mental disorders complicating pregnancy, first trimester (principal); O99.89 Other specified diseases and conditions complicating pregnancy, childbirth and the puerperium; R55 Syncope and collapse; F41.9 Anxiety disorder, unspecified; Z3A.13 13 weeks gestation of pregnancy; Z88.8 Allergy status to other drugs, medicaments and biological substances; Z87.891 Personal history of nicotine dependence
CPT/HCPCS: 36415; 72050; 76801; 80053; 85025; 93005; 96360; 96361; 99285

== ENCOUNTER 2020-07-03 14:22 | Emergency (ER) | payer OTHER ==
[2020-07-03 14:29] VITALS: BP 101/59; PULSE 86; RESP 18; TEMP 98.2
[2020-07-03] MEDS ORDERED: SODIUM CHLORIDE 0.9% 1,000 ML IV ONE (14:51)
[2020-07-03] MEDS ORDERED: METOCLOPRAMIDE 5 MG/ML 2 ML VIAL IVP STA (14:54)
[2020-07-03 15:18] LABS: Basophils % (A) 0 %; Eosinophils # (A) 0.1 k/uL (0-0.7); Eosinophils % (A) 1 %; HGB 11.6 gm/dL (11.4-16.0); Lymphocytes # (A) 1.9 k/uL (1.0-4.8); Lymphocytes % (A) 14 %; MCH 30.5 pg (25.0-35.0); MCHC 33.1 g/dL (31.0-37.0); MCV 92.2 fL (80.0-100.0); Mean Platelet Volume 7.4; Monocytes # (A) 0.6 k/uL (0-1.0); Monocytes % (A) 5 %; Neutrophils # (A) 10.8 k/uL (1.3-7.7); Neutrophils % (A) 80 %; Platelet Count 231 k/uL (150-450); RDW 13.6 % (11.5-15.5); WBC 13.6 k/uL (3.8-10.6)
[2020-07-03 15:21] LABS: Appearance,Urine Clear (Clear); Bilirubin,Urine Negative (Negative); Blood,Urine Negative (Negative); Budding Yeast,Urine Occasional /hpf; Color,Urine Yellow; Glucose,Urine (UA) Negative (Negative); Ketones,Urine Negative (Negative); Leukocyte Esterase,Urine Trace (Negative); Mucus,Urine Rare /hpf; Nitrite,Urine Negative (Negative); Protein,Urine Negative (Negative); RBC,Urine <1 /hpf (0-5); Squamous Epithelial Cell,Urine 7 /hpf (0-4); Urobilinogen,Urine <2.0 mg/dL (<2.0); WBC,Urine 2 /hpf (0-5)
--- NOTE | 2020-07-03 15:24 | ED ---
General Adult HPI - General Chief complaint: Nausea/Vomiting/Diarrhea Stated complaint: NVD Time Seen by Provider: 07/03/20 14:35 Source: patient, RN notes reviewed, old records reviewed Mode of arrival: ambulatory Limitations: no limitations - History of Present Illness Initial comments: 25-year-old female patient who is a 24 weeks gestation presents to emergency department for evaluation nausea vomiting. Which has began this morning. Reports for 4 episodes of nonbloody nausea and vomiting. States that she is not feeling somewhat lightheaded. She denies any abdominal pain vaginal bleeding. She denies any other complaints at this time. Systemic: Pt denies fatigue, fever/chills, rash. Pt denies weakness, night sweats, weight loss. Neuro: Pt denies headache, visual disturbances, syncope or pre-syncope. HEENT: Pt denies ocular discharge or irritation, otalgia, rhinorrhea, pharyngitis or notable lymphadenopathy. Cardiopulmonary: Pt denies chest pain, SOB, heart palpitations, dyspnea on exertion. Abdominal/GI: Pt denies abdominal pain, diarrhea. : Pt denies dysuria, burning w/ urination, frequency/urgency. Denies new onset urinary or bowel incontinence. MSK: Pt denies myalgia, loss of strength or function in extremities. Neuro: Pt denies new onset weakness, paresthesias. - Related Data Home Medications Medication Instructions Recorded Confirmed Ndy-Ndeu-Pgbuy Acid 1 cap PO HS 04/23/20 07/03/20 [-U Capsule (formulary)] Sertraline HCl [Zoloft] 50 mg PO HS 04/23/20 07/03/20 Previous Rx's Medication Instructions Recorded Cephalexin [Keflex] 500 mg PO Q12HR 3 Days #6 cap 07/03/20 Allergies Allergy/AdvReac Type Severity Reaction Status Date / Time buspirone HCl [From BuSpar] AdvReac NUMBNESS Verified 07/03/20 16:50 Review of Systems ROS Statement: Those systems with pertinent positive or pertinent negative responses have been documented in the HPI. ROS Other: All systems not noted in ROS Statement are negative. Past Medical History Past Medical History: Asthma, Thyroid Disorder Additional Past Medical History / Comment(s): Mild intermittent asthma, endometriosis, polycystic ovarian syndrome, history of opioid addiction, states has scoliosis. History of Any Multi-Drug Resistant Organisms: None Reported Past Surgical History: Orthopedic Surgery Additional Past Surgical History / Comment(s): LAPAROSCOPIC REMOVAL LT OVARIAN CYST X 3, knee surgery left, right sublamation of petala on the right current Past Anesthesia/Blood Transfusion Reactions: No Reported Reaction Past Psychological History: Anxiety, Bipolar, Depression Smoking Status: Former smoker Past Alcohol Use History: None Reported Past Drug Use History: Marijuana - Past Family History Father Family Medical History: Asthma Additional Family Medical History / Comment(s): Father is alive at age 44 with history of asthma and heart arrhythmia. Mother Family Medical History: Asthma, Thyroid Disorder Additional Family Medical History / Comment(s): States she thinks her mother has a history of DVT. Sister(s) Family Medical History: No Reported History Additional Family Medical History / Comment(s): She has 3 sisters with no major medical problems. She does not have any brothers. She does not have any children. General Exam - General Exam Comments Initial Comments: Constitutional: NAD, AOX3, Pt has pleasant affect. HEENT: NC/AT, trachea midline, neck supple, no lymphadenopathy. External ears appear normal, without discharge. Mucous membranes moist. Eyes PERRLA, EOM intact. There is no scleral icterus. No pallor noted. Cardiopulmonary: RRR, no murmurs, rubs or gallops, no JVD noted. Lungs CTAB in anterior and posterior doherty. No peripheral edema. Abdominal exam: Abdomen soft and non-distended. Abdomen non-tender to palpation in all 4 quadrants. Bowel sounds active in LLQ. No hepatosplenomegaly. No ecchymosis Neuro: CN II-XII intact. No nuchal rigidity. No raccon eyes, no norwood sign. MSK: Full active ROM in upper and lower extremitiesh. Limitations: no limitations Course Vital Signs 07/03/20 14:25 Temperature 98.2 F Pulse Rate 86 Respiratory 18 Rate Blood Pressure 101/59 O2 Sat by Pulse 98 Oximetry Medical Decision Making - Medical Decision Making 25-year-old female patient at 24 weeks gestation presents to ED for nausea vomiting which began this morning. About 4 episodes. Patient was that she was feeling a little lightheaded. Patient vital signs are stable, afebrile. Physical exam did not display acute pathology. Labs investigations revealed mild leukocytosis which is likely reactive. UA displayed a few wbcs and small leukocyte esterase. Patient eating and tolerating oral intake in room. Patient be treated with Keflex. He will heart tones were in the 140s. Patient's feeling better after fluids and reglan. Patient discharged to follow up with primary care provider and exit booth agent and will return to ER if condition worsens. Case discussed with Dr. Abdullahi. - Lab Data Result diagrams: 07/03/20 15:04 07/03/20 15:04 Lab Results 07/03/20 07/03/20 07/03/20 Range/Units 14:59 15:04 15:04 WBC 13.6 H (3.8-10.6) k/uL RBC 3.80 (3.80-5.40) m/uL Hgb 11.6 (11.4-16.0) gm/dL Hct 35.0 (34.0-46.0) % MCV 92.2 (80.0-100.0) fL MCH 30.5 (25.0-35.0) pg MCHC 33.1 (31.0-37.0) g/dL RDW 13.6 (11.5-15.5) % Plt Count 231 (150-450) k/uL Neutrophils % 80 % Lymphocytes % 14 % Monocytes % 5 % Eosinophils % 1 % Basophils % 0 % Neutrophils # 10.8 H (1.3-7.7) k/uL Lymphocytes # 1.9 (1.0-4.8) k/uL Monocytes # 0.6 (0-1.0) k/uL Eosinophils # 0.1 (0-0.7) k/uL Basophils # 0.0 (0-0.2) k/uL Sodium 134 L (137-145) mmol/L Potassium 4.0 (3.5-5.1) mmol/L Chloride 105 (98-107) mmol/L Carbon Dioxide 22 (22-30) mmol/L Anion Gap 7 mmol/L BUN 6 L (7-17) mg/dL Creatinine 0.41 L (0.52-1.04) mg/dL Est GFR (CKD-EPI)AfAm >90 (>60 ml/min/1.73 sqM) Est GFR (CKD-EPI)NonAf >90 (>60 ml/min/1.73 sqM) Glucose 70 L (74-99) mg/dL Calcium 9.0 (8.4-10.2) mg/dL Total Bilirubin 0.3 (0.2-1.3) mg/dL AST 29 (14-36) U/L ALT 19 (4-34) U/L Alkaline Phosphatase 46 (38-126) U/L Total Protein 6.2 L (6.3-8.2) g/dL Albumin 3.7 (3.5-5.0) g/dL HCG, Quant 10142.1 mIU/mL Urine Color Yellow Urine Appearance Clear (Clear) Urine pH 8.0 (5.0-8.0) Ur Specific [place] 1.010 (1.001-1.035) Urine Protein Negative (Negative) Urine Glucose (UA) Negative (Negative) Urine Ketones Negative (Negative) Urine Blood Negative (Negative) Urine Nitrite Negative (Negative) Urine Bilirubin Negative (Negative) Urine Urobilinogen <2.0 (<2.0) mg/dL Ur Leukocyte Esterase Trace H (Negative) Urine RBC <1 (0-5) /hpf Urine WBC 2 (0-5) /hpf Ur Squamous Epith Cells 7 H (0-4) /hpf Urine Mucus Rare H (None) /hpf Urine Yeast (Budding) Occasional H (None) /hpf Disposition Clinical Impression: Nausea and vomiting in Disposition: HOME SELF-CARE Condition: Stable Instructions (If sedation given, give patient instructions): Acute Nausea and Vomiting (ED) Additional Instructions: follow-up with primary care provider tomorrow. Take antibiotics every 12 hours until they are gone. Follow-up with MACHINE CLOTHING MAN tomorrow. Return to ER if any worsening symptoms. Prescriptions: Cephalexin [Keflex] 500 mg PO Q12HR 3 Days #6 cap Is patient prescribed a controlled substance at d/c from ED?: No Referrals: Jackie Dawson MD [Primary Care Provider] - 1-2 days
[2020-07-03 15:27] LABS: ALT 19 U/L (4-34); AST 29 U/L (14-36); African American GFR (CKD) >90 (>60 ml/min/1.73 sqM); Albumin 3.7 g/dL (3.5-5.0); Alkaline Phosphatase 46 U/L (38-126); Anion Gap 7 mmol/L; Blood Urea Nitrogen 6 mg/dL (7-17); Carbon Dioxide 22 mmol/L (22-30); Chloride 105 mmol/L (98-107); Glucose 70 mg/dL (74-99); Non-African American GFR(CKD) >90 (>60 ml/min/1.73 sqM); Sodium 134 mmol/L (137-145); Total Bilirubin 0.3 mg/dL (0.2-1.3); Total Protein 6.2 g/dL (6.3-8.2)
[2020-07-03 16:17] LABS: HCG,Quantitative Serum 26015.1 mIU/mL
[2020-07-03] MEDS ORDERED: CEPHALEXIN 500 MG CAP PO STA (16:40)
[2020-07-03] MEDS ORDERED: CEPHALEXIN 500MG STARTER PACK 4 CAP BTL PO STA (16:40)
== END 2020-07-03 17:10 | disposition home or self-care (01) ==
LOC: EC 14:22
DX: O21.9 Vomiting of pregnancy, unspecified (principal); O26.892 Other specified pregnancy related conditions, second trimester; R42 Dizziness and giddiness; O99.112 Other diseases of the blood and blood-forming organs and certain disorders involving the immune mechanism complicating pregnancy, second trimester; D72.829 Elevated white blood cell count, unspecified; O99.342 Other mental disorders complicating pregnancy, second trimester; F41.9 Anxiety disorder, unspecified; F31.9 Bipolar disorder, unspecified; Z87.891 Personal history of nicotine dependence; Z88.8 Allergy status to other drugs, medicaments and biological substances; Z3A.24 24 weeks gestation of pregnancy; Z79.899 Other long term (current) drug therapy; Z87.42 Personal history of other diseases of the female genital tract
CPT/HCPCS: 36415; 80053; 85025; 81001; 84702; 99284; 96374; 96361; J2765

== ENCOUNTER 2020-08-08 12:58 | Observation (INO) | payer OTHER ==
--- NOTE | 2020-08-08 13:25 | ED ---
General Adult HPI - General Source: patient, RN notes reviewed, old records reviewed Mode of arrival: wheelchair Limitations: no limitations <Darryl Yang - Last Filed: 08/08/20 15:25> <Darryl Lopez - Last Filed: 08/08/20 18:47> - General Chief complaint: Dizziness Stated complaint: 29wks preg, palpitations Time Seen by Provider: 08/08/20 13:05 - History of Present Illness Initial comments: This is a 25-year-old female presents emergency Department who is 28 weeks . Patient states yesterday she started being short of breath having a little bit of sweating episodes and noticed her heart racing. Patient came in to be evaluated upstairs and they told her that the baby was fine but she still tachycardic so they wanted to come to the emergency department to be evaluated. Patient states she is occasionally short of breath and she is feeling a little bit lightheaded. Patient denies any chest pain. Patient states she does have some palpitations. Patient denies any recent fever chills or cough. Patient denies any vomiting or diarrhea. Patient states she's been drinking enough flu ids. Patient denies any dysuria hematuria urinary frequency. (Darryl Yang) - Related Data Home Medications Medication Instructions Recorded Confirmed Cca-Hbud-Rjspf Acid 1 cap PO HS 04/23/20 08/08/20 [-U Capsule (formulary)] Sertraline HCl [Zoloft] 50 mg PO HS 04/23/20 08/08/20 Albuterol Inhaler [Ventolin Hfa 2 puff INHALATION RT-Q4H PRN 08/08/20 08/08/20 Inhaler] Metoclopramide [Reglan] 10 mg PO ACHS PRN 08/08/20 08/08/20 Allergies Allergy/AdvReac Type Severity Reaction Status Date / Time buspirone HCl [From BuSpar] AdvReac NUMBNESS Verified 08/08/20 14:08 Review of Systems ROS Other: All systems not noted in ROS Statement are negative. <Darryl Yang - Last Filed: 08/08/20 15:25> ROS Other: All systems not noted in ROS Statement are negative. <Darryl Lopez - Last Filed: 10/02/20 18:47> ROS Statement: Those systems with pertinent positive or pertinent negative responses have been documented in the HPI. Past Medical History Past Medical History: Asthma, Thyroid Disorder Additional Past Medical History / Comment(s): Mild intermittent asthma, endometriosis, polycystic ovarian syndrome, history of opioid addiction, states has scoliosis. History of Any Multi-Drug Resistant Organisms: None Reported Past Surgical History: Orthopedic Surgery Additional Past Surgical History / Comment(s): LAPAROSCOPIC REMOVAL LT OVARIAN CYST X 3, knee surgery left, right sublamation of petala on the right current Past Anesthesia/Blood Transfusion Reactions: No Reported Reaction Past Psychological History: Anxiety, Bipolar, Depression Smoking Status: Former smoker Past Alcohol Use History: None Reported Past Drug Use History: None Reported - Past Family History Father Family Medical History: Asthma Additional Family Medical History / Comment(s): Father is alive at age 44 with history of asthma and heart arrhythmia. Mother Family Medical History: Asthma, Thyroid Disorder Additional Family Medical History / Comment(s): States she thinks her mother has a history of DVT. Sister(s) Family Medical History: No Reported History Additional Family Medical History / Comment(s): She has 3 sisters with no major medical problems. She does not have any brothers. She does not have any children. <Darryl Yang - Last Filed: 08/08/20 15:25> General Exam Limitations: no limitations <Darryl Yang - Last Filed: 08/08/20 15:25> General appearance: alert, in no apparent distress Head exam: Present: atraumatic, normocephalic, normal inspection Eye exam: Present: normal appearance, PERRL, EOMI. Absent: scleral icterus, c onjunctival injection, periorbital swelling ENT exam: Present: normal exam, mucous membranes moist Neck exam: Present: normal inspection. Absent: tenderness, meningismus, lymphadenopathy Respiratory exam: Present: normal lung sounds bilaterally. Absent: respiratory distress, wheezes, rales, rhonchi, stridor Cardiovascular Exam: Present: normal rhythm, tachycardia, normal heart sounds. Absent: systolic murmur, diastolic murmur, rubs, gallop, clicks GI/Abdominal exam: Present: soft, normal bowel sounds. Absent: distended, tenderness, guarding, rebound, rigid Extremities exam: Present: normal inspection, full ROM, normal capillary refill. Absent: tenderness, pedal edema, joint swelling, calf tenderness Back exam: Present: normal inspection Neurological exam: Present: alert, oriented X3, CN II-XII intact Psychiatric exam: Present: normal affect, normal mood Skin exam: Present: warm, dry, intact, normal color. Absent: rash <Darryl Lopez - Last Filed: 08/08/20 18:47> - General Exam Comments Initial Comments: GENERAL: Patient is well-developed and well-nourished. Patient is nontoxic and well- hydrated and is in mild distress. ENT: Neck is soft and supple. No significant lymphadenopathy is noted. Oropharynx is clear. Moist mucous membranes. Neck has full range of motion without eliciting any pain. EYES: The sclera were anicteric and conjunctiva were pink and moist. Extraocular movements were intact and pupils were equal round and reactive to light. Eyelids were unremarkable. PULMONARY: Unlabored respirations. Good breath sounds bilaterally. No audible rales rhonchi or wheezing was noted. CARDIOVASCULAR: Patient is tachycardic at 120 beats a minute ABDOMEN: abdomen SKIN: Skin is clear with no lesions or rashes and otherwise unremarkable. NEUROLOGIC: Patient is alert and oriented x3. Cranial nerves II through XII are grossly intact. Motor and sensory are also intact. Normal speech, volume and content. Symmetrical smile. MUSCULOSKELETAL: Normal extremities with adequate strength and full range of motion. No lower extremity swelling or edema. No calf tenderness. LYMPHATICS: No significant lymphadenopathy is noted PSYCHIATRIC: Normal psychiatric evaluation. (Darryl Yang) Course Vital Signs 08/08/20 08/08/20 08/08/20 13:06 13:44 16:30 Temperature 98.2 F Pulse Rate 117 H 105 H Pulse Rate [ 107 H Left Sitting] Pulse Rate [ 105 H Left Standing] Pulse Rate [ 99 Left Supine] Respiratory 20 18 18 Rate Blood Pressure 109/71 118/70 Blood Pressure 115/76 [Left Arm Sitting] Blood Pressure 118/69 [Left Arm Standing] Blood Pressure 111/73 [Left Arm Supine] O2 Sat by Pulse 99 99 100 Oximetry 08/08/20 08/08/20 17:00 18:00 Temperature Pulse Rate 106 H 107 H Pulse Rate [ Left Sitting] Pulse Rate [ Left Standing] Pulse Rate [ Left Supine] Respiratory 18 18 Rate Blood Pressure 117/69 105/62 Blood Pressure [Left Arm Sitting] Blood Pressure [Left Arm Standing] Blood Pressure [Left Arm Supine] O2 Sat by Pulse 100 99 Oximetry Medical Decision Making - Lab Data Result diagrams: 08/08/20 13:52 08/08/20 13:52 <YangCallume - Last Filed: 08/08/20 15:25> - Lab Data Result diagrams: 08/08/20 13:52 08/08/20 13:52 - Radiology Data Radiology results: report reviewed (CXR negative, US BL LE negative, CTA negative for PE), image reviewed <JessicaDarryl Badillo - Last Filed: 08/08/20 18:47> - Medical Decision Making EKG shows normal sinus rhythm at 97 bpm ND interval is on a 28 QRS is 74 QT interval 3:30 QTC is 429. Patient's EKG shows no ST segment elevation or depression. Dr. Duff couple be taking over the care of this patient at 3 PM (Darryl Yang) 25 female DEL with persistent tachycardia some shortness breath and dizziness here in the ER imaging and testing for the most part negative at this time, patient will be admitted for further evaluation cardiology evaluation regarding the tachycardia (Darryl Lopez) - Lab Data Lab Results 08/08/20 08/08/20 08/08/20 Range/Units 13:52 13:52 13:52 WBC 14.0 H (3.8-10.6) k/uL RBC 3.59 L (3.80-5.40) m/uL Hgb 10.8 L (11.4-16.0) gm/dL Hct 32.0 L (34.0-46.0) % MCV 89.4 (80.0-100.0) fL MCH 30.2 (25.0-35.0) pg MCHC 33.8 (31.0-37.0) g/dL RDW 13.1 (11.5-15.5) % Plt Count 283 (150-450) k/uL Neutrophils % 76 % Lymphocytes % 16 % Monocytes % 6 % Eosinophils % 1 % Basophils % 0 % Neutrophils # 10.7 H (1.3-7.7) k/uL Lymphocytes # 2.2 (1.0-4.8) k/uL Monocytes # 0.8 (0-1.0) k/uL Eosinophils # 0.1 (0-0.7) k/uL Basophils # 0.0 (0-0.2) k/uL PT 9.3 (9.0-12.0) sec INR 0.9 (<1.2) APTT 21.5 L (22.0-30.0) sec D-Dimer 1.06 H (<0.60) mg/L FEU Sodium (137-145) mmol/L Potassium (3.5-5.1) mmol/L Chloride (98-107) mmol/L Carbon Dioxide (22-30) mmol/L Anion Gap mmol/L BUN (7-17) mg/dL Creatinine (0.52-1.04) mg/dL Est GFR (CKD-EPI)AfAm (>60 ml/min/1.73 sqM) Est GFR (CKD-EPI)NonAf (>60 ml/min/1.73 sqM) Glucose (74-99) mg/dL Calcium (8.4-10.2) mg/dL Magnesium (1.6-2.3) mg/dL Total Bilirubin (0.2-1.3) mg/dL AST (14-36) U/L ALT (4-34) U/L Alkaline Phosphatase (38-126) U/L Troponin I (0.000-0.034) ng/mL Total Protein (6.3-8.2) g/dL Albumin (3.5-5.0) g/dL TSH (0.465-4.680) mIU/L Free T4 (0.78-2.19) ng/dL Urine Color Urine Appearance (Clear) Urine pH (5.0-8.0) Ur Specific [place] (1.001-1.035) Urine Protein (Negative) Urine Glucose (UA) (Negative) Urine Ketones (Negative) Urine Blood (Negative) Urine Nitrite (Negative) Urine Bilirubin (Negative) Urine Urobilinogen (<2.0) mg/dL Ur Leukocyte Esterase (Negative) Urine WBC (0-5) /hpf Ur Squamous Epith Cells (0-4) /hpf Amorphous Sediment (None) /hpf Urine Mucus (None) /hpf Urine Opiates Screen Not Detected (NotDetected) Ur Oxycodone Screen Not Detected (NotDetected) Urine Methadone Screen Not Detected (NotDetected) Ur Propoxyphene Screen Not Detected (NotDetected) Ur Barbiturates Screen Not Detected (NotDetected) U Tricyclic Antidepress Not Detected (NotDetected) Ur Phencyclidine Scrn Not Detected (NotDetected) Ur Amphetamines Screen Not Detected (NotDetected) U Methamphetamines Scrn Not Detected (NotDetected) U Benzodiazepines Scrn Not Detected (NotDetected) Urine Cocaine Screen Not Detected (NotDetected) U Marijuana (THC) Screen Not Detected (NotDetected) 08/08/20 08/08/20 08/08/20 Range/Units 13:52 13:52 13:52 WBC (3.8-10.6) k/uL RBC (3.80-5.40) m/uL Hgb (11.4-16.0) gm/dL Hct (34.0-46.0) % MCV (80.0-100.0) fL MCH (25.0-35.0) pg MCHC (31.0-37.0) g/dL RDW (11.5-15.5) % Plt Count (150-450) k/uL Neutrophils % % Lymphocytes % % Monocytes % % Eosinophils % % Basophils % % Neutrophils # (1.3-7.7) k/uL Lymphocytes # (1.0-4.8) k/uL Monocytes # (0-1.0) k/uL Eosinophils # (0-0.7) k/uL Basophils # (0-0.2) k/uL PT (9.0-12.0) sec INR (<1.2) APTT (22.0-30.0) sec D-Dimer (<0.60) mg/L FEU Sodium 134 L (137-145) mmol/L Potassium 3.8 (3.5-5.1) mmol/L Chloride 105 (98-107) mmol/L Carbon Dioxide 23 (22-30) mmol/L Anion Gap 6 mmol/L BUN 7 (7-17) mg/dL Creatinine 0.42 L (0.52-1.04) mg/dL Est GFR (CKD-EPI)AfAm >90 (>60 ml/min/1.73 sqM) Est GFR (CKD-EPI)NonAf >90 (>60 ml/min/1.73 sqM) Glucose 92 (74-99) mg/dL Calcium 9.3 (8.4-10.2) mg/dL Magnesium 1.7 (1.6-2.3) mg/dL Total Bilirubin 0.3 (0.2-1.3) mg/dL AST 20 (14-36) U/L ALT 12 (4-34) U/L Alkaline Phosphatase 64 (38-126) U/L Troponin I <0.012 (0.000-0.034) ng/mL Total Protein 6.4 (6.3-8.2) g/dL Albumin 3.7 (3.5-5.0) g/dL TSH 0.451 L (0.465-4.680) mIU/L Free T4 0.95 (0.78-2.19) ng/dL Urine Color Urine Appearance (Clear) Urine pH (5.0-8.0) Ur Specific [place] (1.001-1.035) Urine Protein (Negative) Urine Glucose (UA) (Negative) Urine Ketones (Negative) Urine Blood (Negative) Urine Nitrite (Negative) Urine Bilirubin (Negative) Urine Urobilinogen (<2.0) mg/dL Ur Leukocyte Esterase (Negative) Urine WBC (0-5) /hpf Ur Squamous Epith Cells (0-4) /hpf Amorphous Sediment (None) /hpf Urine Mucus (None) /hpf Urine Opiates Screen (NotDetected) Ur Oxycodone Screen (NotDetected) Urine Methadone Screen (NotDetected) Ur Propoxyphene Screen (NotDetected) Ur Barbiturates Screen (NotDetected) U Tricyclic Antidepress (NotDetected) Ur Phencyclidine Scrn (NotDetected) Ur Amphetamines Screen (NotDetected) U Methamphetamines Scrn (NotDetected) U Benzodiazepines Scrn (NotDetected) Urine Cocaine Screen (NotDetected) U Marijuana (THC) Screen (NotDetected) 08/08/20 Range/Units 13:52 WBC (3.8-10.6) k/uL RBC (3.80-5.40) m/uL Hgb (11.4-16.0) gm/dL Hct (34.0-46.0) % MCV (80.0-100.0) fL MCH (25.0-35.0) pg MCHC (31.0-37.0) g/dL RDW (11.5-15.5) % Plt Count (150-450) k/uL Neutrophils % % Lymphocytes % % Monocytes % % Eosinophils % % Basophils % % Neutrophils # (1.3-7.7) k/uL Lymphocytes # (1.0-4.8) k/uL Monocytes # (0-1.0) k/uL Eosinophils # (0-0.7) k/uL Basophils # (0-0.2) k/uL PT (9.0-12.0) sec INR (<1.2) APTT (22.0-30.0) sec D-Dimer (<0.60) mg/L FEU Sodium (137-145) mmol/L Potassium (3.5-5.1) mmol/L Chloride (98-107) mmol/L Carbon Dioxide (22-30) mmol/L Anion Gap mmol/L BUN (7-17) mg/dL Creatinine (0.52-1.04) mg/dL Est GFR (CKD-EPI)AfAm (>60 ml/min/1.73 sqM) Est GFR (CKD-EPI)NonAf (>60 ml/min/1.73 sqM) Glucose (74-99) mg/dL Calcium (8.4-10.2) mg/dL Magnesium (1.6-2.3) mg/dL Total Bilirubin (0.2-1.3) mg/dL AST (14-36) U/L ALT (4-34) U/L Alkaline Phosphatase (38-126) U/L Troponin I (0.000-0.034) ng/mL Total Protein (6.3-8.2) g/dL Albumin (3.5-5.0) g/dL TSH (0.465-4.680) mIU/L Free T4 (0.78-2.19) ng/dL Urine Color Light Yellow Urine Appearance Cloudy H (Clear) Urine pH 7.5 (5.0-8.0) Ur Specific [place] 1.011 (1.001-1.035) Urine Protein Negative (Negative) Urine Glucose (UA) Negative (Negative) Urine Ketones Negative (Negative) Urine Blood Negative (Negative) Urine Nitrite Negative (Negative) Urine Bilirubin Negative (Negative) Urine Urobilinogen <2.0 (<2.0) mg/dL Ur Leukocyte Esterase Trace H (Negative) Urine WBC 1 (0-5) /hpf Ur Squamous Epith Cells 8 H (0-4) /hpf Amorphous Sediment Moderate H (None) /hpf Urine Mucus Rare H (None) /hpf Urine Opiates Screen (NotDetected) Ur Oxycodone Screen (NotDetected) Urine Methadone Screen (NotDetected) Ur Propoxyphene Screen (NotDetected) Ur Barbiturates Screen (NotDetected) U Tricyclic Antidepress (NotDetected) Ur Phencyclidine Scrn (NotDetected) Ur Amphetamines Screen (NotDetected) U Methamphetamines Scrn (NotDetected) U Benzodiazepines Scrn (NotDetected) Urine Cocaine Screen (NotDetected) U Marijuana (THC) Screen (NotDetected) Critical Care Time Critical Care Time: Yes Total Critical Care Time: 31 <Darryl Lopez - Last Filed: 08/08/20 18:47> Disposition <Darryl Yang - Last Filed: 08/08/20 15:25> Is patient prescribed a controlled substance at d/c from ED?: No <Darryl Lopez - Last Filed: 08/08/20 18:47> Clinical Impression: Tachycardia, Dizziness Disposition: ADMITTED IP TO THIS [facility] Condition: Fair Referrals: Jackie Dawson MD [Primary Care Provider] - 1-2 days
[2020-08-08] MEDS ORDERED: SODIUM CHLORIDE 0.9% 1,000 ML IV STA ×2 (13:32→16:05)
[2020-08-08] MEDS ORDERED: ACETAMINOPHEN TAB 500 MG TAB PO STA (13:48)
[2020-08-08 14:14] LABS: Basophils % (A) 0 %; Eosinophils # (A) 0.1 k/uL (0-0.7); Eosinophils % (A) 1 %; HGB 10.8 gm/dL (11.4-16.0); Lymphocytes # (A) 2.2 k/uL (1.0-4.8); Lymphocytes % (A) 16 %; MCH 30.2 pg (25.0-35.0); MCHC 33.8 g/dL (31.0-37.0); MCV 89.4 fL (80.0-100.0); Monocytes # (A) 0.8 k/uL (0-1.0); Monocytes % (A) 6 %; Neutrophils # (A) 10.7 k/uL (1.3-7.7); Neutrophils % (A) 76 %; Platelet Count 283 k/uL (150-450); RBC 3.59 m/uL (3.80-5.40); RDW 13.1 % (11.5-15.5)
[2020-08-08 14:26] LABS: ALT 12 U/L (4-34); AST 20 U/L (14-36); African American GFR (CKD) >90 (>60 ml/min/1.73 sqM); Albumin 3.7 g/dL (3.5-5.0); Alkaline Phosphatase 64 U/L (38-126); Anion Gap 6 mmol/L; Blood Urea Nitrogen 7 mg/dL (7-17); Calcium 9.3 mg/dL (8.4-10.2); Carbon Dioxide 23 mmol/L (22-30); Chloride 105 mmol/L (98-107); Glucose 92 mg/dL (74-99); Magnesium 1.7 mg/dL (1.6-2.3); Non-African American GFR(CKD) >90 (>60 ml/min/1.73 sqM); Potassium 3.8 mmol/L (3.5-5.1); Sodium 134 mmol/L (137-145); Total Bilirubin 0.3 mg/dL (0.2-1.3); Total Protein 6.4 g/dL (6.3-8.2)
--- NOTE | 2020-08-08 14:30 | XR ---
EXAMINATION TYPE: XR chest 2V DATE OF EXAM: 08/08/2020 COMPARISON: Prior chest 05/24/2018 HISTORY: Dysrhythmia TECHNIQUE: Frontal and lateral views of the chest are obtained. FINDINGS: There is no focal air space opacity, pleural effusion, or pneumothorax seen. The cardiac silhouette size is within normal limits. There are overlying cardiac leads. There is a mild spinal cu rvature. The osseous structures are intact. IMPRESSION: No acute cardiopulmonary process.
[2020-08-08 14:32] LABS: Amphetamine Screen,Urine Not Detected (NotDetected); Barbiturate Screen,Urine Not Detected (NotDetected); Benzodiazepines Screen,Urine Not Detected (NotDetected); Cocaine Screen,Urine Not Detected (NotDetected); INR 0.9 (<1.2); Methadone Screen, Urine Not Detected (NotDetected); Opiate Screen,Urine Not Detected (NotDetected); Oxycodone Screen, Urine Not Detected (NotDetected); Phencyclidine Screen,Urine Not Detected (NotDetected); Prothrombin Time 9.3 sec (9.0-12.0); Tricyclic Antidepressant,Urine Not Detected (NotDetected); Urn Cannabinoid Scrn Not Detected (NotDetected)
[2020-08-08 14:39] LABS: D-Dimer 1.06 mg/L FEU (<0.60)
[2020-08-08 14:40] LABS: Partial Thromboplastin Time 21.5 sec (22.0-30.0)
--- NOTE | 2020-08-08 16:09 | CT ---
EXAMINATION TYPE: CT chest angio for PE DATE OF EXAM: 08/08/2020 COMPARISON: NONE HISTORY: Shortness of breath and chest pain. CT DLP: 250.8 mGycm. Automated Exposure Control for Dose Reduction was Utilized. CONTRAST: CTA scan of the thorax is performed with IV Contrast, patient injected with 100 mL of Isovue 370, pul monary embolism protocol. MIP Images are created on CT scanner and reviewed. FINDINGS: LUNGS: Exam suboptimal as patient unable to hold breath limiting evaluation for subcentimeter nodules . Lungs are grossly clear. No pleural effusion or pneumothorax seen bilaterally. MEDIASTINUM: There is suboptimal study with most dense contrast filling the aorta, there is poor cont rast opacification heterogeneity in the pulmonary arteries. There is no central pulmonary embolism. Smaller segmental and subsegmental PE cannot be excluded on this study. There are no greater than 1 c m hilar or mediastinal lymph nodes. No cardiomegaly is seen. Trace pericardial effusion noted. No a ortic aneurysm or dissection. OTHER: No additional significant abnormality is seen. IMPRESSION: Suboptimal study without central saddle pulmonary embolism. Smaller subsegmental and subs egmental PE cannot be excluded. No acute pulmonary process.
[2020-08-08 16:29] LABS: Amorphous Sediment,Urine Moderate /hpf; Appearance,Urine Cloudy (Clear); Bilirubin,Urine Negative (Negative); Blood,Urine Negative (Negative); Color,Urine Light Yellow; Glucose,Urine (UA) Negative (Negative); Ketones,Urine Negative (Negative); Leukocyte Esterase,Urine Trace (Negative); Mucus,Urine Rare /hpf; Nitrite,Urine Negative (Negative); PH, Urine 7.5 (5.0-8.0); Protein,Urine Negative (Negative); Specific Gravity,Urine 1.011 (1.001-1.035); Squamous Epithelial Cell,Urine 8 /hpf (0-4); Urobilinogen,Urine <2.0 mg/dL (<2.0); WBC,Urine 1 /hpf (0-5)
--- NOTE | 2020-08-08 17:36 | US ---
EXAMINATION TYPE: US venous doppler duplex LE DATE OF EXAM: 08/08/2020 5:17 PM COMPARISON: NONE CLINICAL HISTORY: dvt. SOB, patient 29 weeks SIDE PERFORMED: bilateral TECHNIQUE: The lower extremity deep venous system is examined utilizing real time linear array sonog miracle with graded compression, doppler sonography and color-flow sonography. VESSELS IMAGED: External Iliac Vein (EIV) Common Femoral Vein Deep Femoral Vein Greater Saphenous Vein * Femoral Vein Popliteal Vein Small Saphenous Vein * Proximal Calf Veins (* superficial vessels) Right Leg: no evidence of DVT Left Leg: no evidence of DVT IMPRESSION: No evidence of deep vein thrombosis in both legs.
[2020-08-08] MEDS ORDERED: SODIUM CHLORIDE 0.9% 1,000 ML IV SCH (18:45)
[2020-08-09 09:10] LABS: Basophils % (A) 0 %; Eosinophils # (A) 0.2 k/uL (0-0.7); Eosinophils % (A) 2 %; HGB 9.5 gm/dL (11.4-16.0); Lymphocytes # (A) 1.9 k/uL (1.0-4.8); Lymphocytes % (A) 17 %; MCH 29.8 pg (25.0-35.0); MCHC 32.8 g/dL (31.0-37.0); MCV 90.8 fL (80.0-100.0); Mean Platelet Volume 7.2; Monocytes # (A) 0.4 k/uL (0-1.0); Monocytes % (A) 3 %; Neutrophils # (A) 8.5 k/uL (1.3-7.7); Neutrophils % (A) 77 %; Platelet Count 257 k/uL (150-450); RDW 13.1 % (11.5-15.5); WBC 11.1 k/uL (3.8-10.6)
[2020-08-09 10:43] VITALS: TEMP 98.6
--- NOTE | 2020-08-09 11:12 | P.OBCN ---
History of Present Illness Consult date: 08/09/20 Requesting physician: Jimena Travis Reason for consult: other Chief complaint: 28+ weeks intrauterine , tachycardia with shortness of breath History of present illness: The patient is a 25-year-old 1 para 0 admitted at approximately 28+ weeks by good dating parameters. She presented initially to obstetrical triage complaining of right lower quadrant pain and secondarily of irregular dizziness, shortness of breath, and palpitations. She is found to have a resting heart rate of approximately 120 to 130. She is otherwise asymptomatic at rest. There is no evidence of any ongoing obstetrical concerns and heart tones were category 1. She was transferred to the emergency room for further evaluation from a medical perspective at which time she was found to have negative studies for possible PE and DVT but was admitted for observation so the cardiology could evaluate and perform an echocardiogram. That evaluation has been done but the reading is not available in the chart yet. The patient is pleasant and asymptomatic this morning the pH denies any chest pain, shortness of breath or any other concerns and is otherwise performing all activities of daily living. Obstetrical history: 1 para 0 with current statistics listed above. Her record is not available at this time but is unremarkable. Gynecologic history: Unremarkable with no history of any infections to include STDs. Review of Systems Review of systems is confined to history of present illness. Past Medical History Past Medical History: Asthma Additional Past Medical History / Comment(s): Mild intermittent asthma, endometriosis, polycystic ovarian syndrome, history of opioid addiction, states has scoliosis. History of Any Multi-Drug Resistant Organisms: None Reported Past Surgical History: Orthopedic Surgery Additional Past Surgical History / Comment(s): LAPAROSCOPIC REMOVAL LT OVARIAN CYST X 3, knee surgery left, right sublamation of petala on the right current Past Anesthesia/Blood Transfusion Reactions: No Reported Reaction Past Psychological History: Anxiety, Bipolar, Depression Smoking Status: Former smoker Past Alcohol Use History: None Reported Additional Past Alcohol Use History / Comment(s): She is a smoker of one half pack of cigarettes per day since 2010. She has history of heroin abuse and has been off for 2 YRS. Prior to that she was abusing benzodiazepines and alcohol. NO LONGER USING DRUGS OR ALCOHOL PER PT Past Drug Use History: None Reported Additional Drug Use History / Comment(s): clean for 3 years, no history of invervenous drug use - Past Family History Father Family Medical History: Asthma Additional Family Medical History / Comment(s): Father is alive at age 44 with history of asthma and heart arrhythmia. Mother Family Medical History: Asthma, Thyroid Disorder Additional Family Medical History / Comment(s): States she thinks her mother has a history of DVT. Sister(s) Family Medical History: No Reported History Additional Family Medical History / Comment(s): She has 3 sisters with no major medical problems. She does not have any brothers. She does not have any children. Medications and Allergies Home Medications Medication Instructions Recorded Confirmed Type Vve-Nxau-Lepin Acid 1 cap PO HS 04/23/20 08/08/20 History [-U Capsule (formulary)] Sertraline HCl [Zoloft] 50 mg PO HS 04/23/20 08/08/20 History Albuterol Inhaler [Ventolin Hfa 2 puff INHALATION RT-Q4H PRN 08/08/20 08/08/20 History Inhaler] Metoclopramide [Reglan] 10 mg PO ACHS PRN 08/08/20 08/08/20 History Allergies Allergy/AdvReac Type Severity Reaction Status Date / Time buspirone HCl [From BuSpar] AdvReac NUMBNESS Verified 08/08/20 14:08 Exam Vital Signs Temp Pulse Pulse Pulse Pulse Pulse Resp 08/09/20 08:30 98.6 F 109 H 18 08/09/20 04:00 97.2 F L 94 16 08/08/20 20:47 98.4 F 78 16 08/08/20 20:34 98.4 F 98 16 08/08/20 20:00 98.4 F 107 H 14 08/08/20 18:00 107 H 18 08/08/20 17:00 106 H 18 08/08/20 16:30 105 H 18 08/08/20 13:44 107 H 105 H 99 18 08/08/20 13:06 98.2 F 117 H 20 BP BP BP BP BP Pulse Ox 08/09/20 08:30 107/60 98 08/09/20 04:00 97/55 99 08/08/20 20:47 121/85 100 08/08/20 20:34 121/85 100 08/08/20 20:00 113/66 99 08/08/20 18:00 105/62 99 08/08/20 17:00 117/69 100 08/08/20 16:30 118/70 100 08/08/20 13:44 115/76 118/69 111/73 99 08/08/20 13:06 109/71 99 Intake and Output 08/08/20 08/09/20 08/09/20 22:59 06:59 14:59 Output Total 200 150 Balance -200 -150 Output: Urine 200 150 Other: Voiding Method Toilet Toilet Weight 69.853 kg 70.76 kg In general, this is a well-developed, well-nourished white female in no acute distress. Her heart has a regular rhythm and rate without murmur at this time. Her lungs are clear to auscultation bilaterally in all doherty. Her abdomen is gravid with fundal height consistent with the 20 weeks of gestation. It is othe rwise nontender without any palpable masses aside from the fundus. Her extremities are without any cyanosis, clubbing, or edema and are nontender to palpation bilaterally. Digital cervical examination is deferred. Results Result Diagrams: 08/09/20 08:34 08/08/20 13:52 Abnormal Lab Results - Last 24 Hours (Table) 08/08/20 08/08/20 08/08/20 Range/Units 13:52 13:52 13:52 WBC 14.0 H (3.8-10.6) k/uL RBC 3.59 L (3.80-5.40) m/uL Hgb 10.8 L (11.4-16.0) gm/dL Hct 32.0 L (34.0-46.0) % Neutrophils # 10.7 H (1.3-7.7) k/uL APTT 21.5 L (22.0-30.0) sec D-Dimer 1.06 H (<0.60) mg/L FEU Sodium 134 L (137-145) mmol/L Creatinine 0.42 L (0.52-1.04) mg/dL TSH 0.451 L (0.465-4.680) mIU/L Urine Appearance (Clear) Ur Leukocyte Esterase (Negative) Ur Squamous Epith Cells (0-4) /hpf Amorphous Sediment (None) /hpf Urine Mucus (None) /hpf 10/02/20 10/03/20 Range/Units 13:52 08:34 WBC 11.1 H (3.8-10.6) k/uL RBC 3.20 L (3.80-5.40) m/uL Hgb 9.5 L (11.4-16.0) gm/dL Hct 29.0 L (34.0-46.0) % Neutrophils # 8.5 H (1.3-7.7) k/uL APTT (22.0-30.0) sec D-Dimer (<0.60) mg/L FEU Sodium (137-145) mmol/L Creatinine (0.52-1.04) mg/dL TSH (0.465-4.680) mIU/L Urine Appearance Cloudy H (Clear) Ur Leukocyte Esterase Trace H (Negative) Ur Squamous Epith Cells 8 H (0-4) /hpf Amorphous Sediment Moderate H (None) /hpf Urine Mucus Rare H (None) /hpf Assessment and Plan (1) 28 weeks gestation of Current Visit: Yes Status: Acute Code(s): Z3A.28 - 28 WEEKS GESTATION OF SNOMED Code(s): 08419510 (2) Dizziness Current Visit: Yes Status: Acute Code(s): R42 - DIZZINESS AND GIDDINESS SNOMED Code(s): 228720891 (3) Tachycardia Current Visit: Yes Status: Acute Code(s): R00.0 - TACHYCARDIA, UNSPECIFIED SNOMED Code(s): 0762113 Plan: From an obstetrical perspective, there is no intervention necessary aside from d ocumenting a 15 minute strip the which may or may not be reactive as an NST given her gestational age. We otherwise await input from cardiology as to any necessary intervention to deal with her ongoing irregular tachycardia and dizziness which has been symptomatic in recent weeks. Should cardiology feels she can be discharged, there is no contra indications from an obstetrical standpoint. I have asked her to follow up with me next week for reevaluation of this problem as well as routine concerns.
--- NOTE | 2020-08-09 13:11 | CONS ---
CONSULTATION Mrs. Ruiz is a 25-year-old female with due date towards the end of October, who yesterday was seen in the Labor and delivery floor and was complaining of tachycardia. Heart rate was in the 110s to 120s and because of that, was referred to the emergency room and subsequently admitted. On the monitor, she has been in sinus mechanism and there was no evidence of supraventricular tachycardia or ventricular ectopic activity. She has been complaining of some rapid heartbeat, although she is feeling well today. Her breathing is stable. She denies any dizziness or palpitation on a regular basis. She has no peripheral edema. No PND. No orthopnea. No prior history of cardiac abnormalities. She has no history of hypertension, diabetes and she has stopped smoking when she got . She does not consume significant caffeinated beverages. MEDICATIONS: At home include Zoloft, vitamins, Reglan, and Ventolin on a p.r.n. basis. REVIEW OF SYSTEMS: RESPIRATORY system: She has no documented history of asthma, emphysema or bronchitis. No recent wheezing. GI system: No recent GI bleeding. No peptic ulcer disease. Her nausea is improving. system: No dysuria or hematuria. NERVOUS SYSTEM: No history of stroke or seizure. PHYSICAL EXAMINATION: A 25-year-old female, alert, oriented, in no apparent distress. Blood pressure running between the 100s to 120s with a heart rate in the 90s. Afebrile. HEAD: Normocephalic. Eyes sclerae anicteric. NECK: Good carotid upstroke. No bruit. No jugular venous distention. LUNGS: Clear to auscultation. HEART is regular rate and rhythm S1, S2. No S3 with a systolic murmur, 1/6 heard at the left upper sternal border. No diastolic murmur. No rub. ABDOMEN: Soft, evidence of large uterus noted. EXTREMITIES: No edema. LAB DATA: Revealed a hemoglobin of 9.5, BUN and creatinine of 7 and 0.42. Troponin less than 0.012. TSH 0.41 and free T4 0.95. Her toxicology is negative. Her EKG reveals sinus mechanism with no acute ST-segment changes. CT angiogram of the chest showed no evidence of pulmonary embolism. Chest x-ray shows no evidence of infiltrate. IMPRESSION: 1. Sinus tachycardia. Patient has no evidence of malignant arrhythmia. 2. Gestation. RECOMMENDATION: From the cardiac standpoint, I will review the results of the echo. If there is no evidence of abnormality, I will expect she should be able to be discharged home today. I have discussed those findings with her. Thank you for this consult. Will follow with you. HOME / HEATHER: [id number] /
--- NOTE | 2020-08-09 16:06 | ECHOF ---
Referral Reason:tachycardia MEASUREMENTS -------- HEIGHT: 162.6 cm WEIGHT: 69.9 kg BP: IVSd: 1.2 cm (0.6 - 1.1) LVIDd: 3.2 cm (3.9 - 5.3) LVPWd: 1.3 cm (0.6 - 1.1) EDV(Teich): 42 ml IVSs: 1.5 cm LVIDs: 2.1 cm LVPWs: 1.6 cm %IVS Thck: 24 % ESV(Teich): 15 ml EF(Teich): 64 % %FS: 34 % SV(Teich): 27 ml RVIDd: 2.0 cm (< 3.3) LALs A4C: 4.5 cm LAAs A4C: 13.6 cm LAESV A-L A4C: 35 ml LAESV MOD A4C: 32 ml LALs A2C: 4.2 cm LAAs A2C: 12.2 cm LAESV A-L A2C: 30 ml LAESV MOD A2C: 29 ml LAESV(A-L): 33 ml LAESV Index (A-L): 19.11 ml/m Ao Diam: 2.4 cm (2.0 - 3.7) LA Diam: 2.2 cm (2.7 - 3.8) AV Cusp: 1.6 cm (1.5 - 2.6) EPSS: 0.7 cm MV E Neftali: 1.27 m/s MV DecT: 184 ms MV Dec Wilkin: 6.9 m/s MV A Neftali: 0.73 m/s MV E/A Ratio: 1.75 MV PHT: 53 ms MR Vmax: 1.36 m/s MR maxP.42 mmHg AV Vmax: 1.44 m/s AV maxP.29 mmHg PV Vmax: 1.15 m/s PV maxP.33 mmHg SC Vmax: 1.45 m/s SC maxP.42 mmHg SC PHT: 370 ms SC DecT: 1275 ms SC Dec Wilkin: 1.1 m/s TR Vmax: 1.32 m/s TR maxP.95 mmHg RAP: 5.00 mmHg RVSP: 11.95 mmHg MV EF SLOPE: 150.26 mm/s (70 - 150) MV EXCURSION: 13.54 mm (> 18.000) FINDINGS -------- Sinus rhythm. This was a technically good study. The left ventricular size is normal. Left ventricular wall thickness is normal. Overall left vent ricular systolic function is normal with, an EF between 55 - 60 %. The diastolic filling pattern is normal for the age of the patient 7.81. The right ventricle is normal in size. Normal LA size by volume 22+/-6 ml/m2. The right atrial size is normal. Interatrial and interventricular septum intact. The aortic valve is trileaflet, and appears structurally normal. No aortic stenosis or regurgitation. The mitral valve is normal. There is trace mitral regurgitation. The tricuspid valve appears structurally normal. Trace tricuspid regurgitation present. Right nubia tricular systolic pressure is normal at < 35 mmHg. There is no pulmonic regurgitation present. The aortic root size is normal. IVC Not well visulized. There is no pericardial effusion. CONCLUSIONS -------- 1. Left ventricular wall thickness is normal. 2. Overall left ventricular systolic function is normal with, an EF between 55 - 60 %. 3. The diastolic filling pattern is normal for the age of the patient 7.81 4. Normal LA size by volume 22+/-6 ml/m2. 5. The aortic valve is trileaflet, and appears structurally normal. No aortic stenosis or regurgitati on. 6. There is trace mitral regurgitation. 7. Trace tricuspid regurgitation present. 8. There is no pericardial effusion. [facility]: Mariana Davenport RDCS
[2020-08-09 17:29] VITALS: BP 109/57; PULSE 107; RESP 17
[2020-08-09] MEDS ORDERED: PRENATAL VIT-IRON-FOLIC ACID 1 EACH CAP PO SCH (21:00)
[2020-08-09] MEDS ORDERED: SERTRALINE 50 MG TAB PO SCH (21:00)
== END 2020-08-09 18:22 | disposition home or self-care (01) ==
LOC: EC 12:58 → 3SCARD 18:37
PROVIDERS: ADMIT Hospitalist; ATTEND Hospitalist
DX: R42 Dizziness and giddiness (principal); R06.02 Shortness of breath; R00.0 Tachycardia, unspecified; F31.9 Bipolar disorder, unspecified; J45.20 Mild intermittent asthma, uncomplicated; M41.9 Scoliosis, unspecified; O99.343 Other mental disorders complicating pregnancy, third trimester; O99.513 Diseases of the respiratory system complicating pregnancy, third trimester; Z3A.29 29 weeks gestation of pregnancy; Z82.5 Family history of asthma and other chronic lower respiratory diseases; Z87.891 Personal history of nicotine dependence
CPT/HCPCS: 93005 ×2; 96360; 96361; 99291; 36415; 93306; 85379; 84439; 80053; 83735; 84443; 84484; 85025 ×2; 85610; 85730; 81001; 80306; 71046; 93970; 71275; G0378 ×2; Q9967

== ENCOUNTER 2020-08-21 09:57 | Observation (INO) | payer OTHER ==
[2020-08-21] MEDS ORDERED: SODIUM CHLORIDE 0.9% 500 ML 500 ML IV STA (10:18)
[2020-08-21] MEDS ORDERED: SODIUM CHLORIDE 0.9% 1,000 ML IV STA (10:18)
[2020-08-21 10:58] LABS: Basophils % (A) 0 %; Eosinophils # (A) 0.1 k/uL (0-0.7); Eosinophils % (A) 1 %; HCT 31.2 % (34.0-46.0); HGB 10.5 gm/dL (11.4-16.0); Lymphocytes % (A) 15 %; MCH 30.5 pg (25.0-35.0); MCHC 33.7 g/dL (31.0-37.0); MCV 90.5 fL (80.0-100.0); Mean Platelet Volume 7.2; Monocytes % (A) 7 %; Neutrophils # (A) 9.7 k/uL (1.3-7.7); Neutrophils % (A) 75 %; Platelet Count 286 k/uL (150-450); RBC 3.45 m/uL (3.80-5.40); RDW 12.8 % (11.5-15.5)
[2020-08-21 11:00] LABS: Appearance,Urine Clear (Clear); Bilirubin,Urine Negative (Negative); Blood,Urine Negative (Negative); Color,Urine Light Yellow; Glucose,Urine (UA) Negative (Negative); Ketones,Urine Negative (Negative); Leukocyte Esterase,Urine Negative (Negative); Nitrite,Urine Negative (Negative); PH, Urine 7.5 (5.0-8.0); Protein,Urine Negative (Negative); Urobilinogen,Urine <2.0 mg/dL (<2.0)
[2020-08-21 11:06] LABS: ALT 12 U/L (4-34); AST 20 U/L (14-36); African American GFR (CKD) >90 (>60 ml/min/1.73 sqM); Albumin 3.5 g/dL (3.5-5.0); Alkaline Phosphatase 66 U/L (38-126); Anion Gap 5 mmol/L; Blood Urea Nitrogen 9 mg/dL (7-17); Calcium 9.2 mg/dL (8.4-10.2); Carbon Dioxide 25 mmol/L (22-30); Chloride 104 mmol/L (98-107); Glucose 75 mg/dL (74-99); Magnesium 1.6 mg/dL (1.6-2.3); Non-African American GFR(CKD) >90 (>60 ml/min/1.73 sqM); Potassium 4.1 mmol/L (3.5-5.1); Sodium 134 mmol/L (137-145); Total Bilirubin 0.4 mg/dL (0.2-1.3); Total Protein 6.3 g/dL (6.3-8.2)
[2020-08-21 11:12] LABS: INR 0.9 (<1.2); Prothrombin Time 9.3 sec (9.0-12.0)
[2020-08-21 11:30] LABS: Partial Thromboplastin Time 20.6 sec (22.0-30.0)
--- NOTE | 2020-08-21 11:56 | XR ---
EXAMINATION TYPE: XR chest 2V DATE OF EXAM: 08/21/2020 COMPARISON: 08/08/2020 HISTORY: 25-year-old female dysrhythmia TECHNIQUE: PA and lateral views FINDINGS: The cardiomediastinal silhouette, aorta, and pulmonary vasculature are within normal limits. Lungs an d pleural spaces are clear. IMPRESSION: No acute cardiopulmonary process.
[2020-08-21] MEDS ORDERED: NALOXONE 0.4 MG/ML 1 ML VIAL IV PRN (12:28)
--- NOTE | 2020-08-21 12:31 | ED ---
Arrhythmia/Palpitations HPI - General Chief Complaint: Arrhythmia/Palpitations Stated Complaint: Tachycardia - 30 wks preg Time Seen by Provider: 08/21/20 10:17 Source: patient Mode of arrival: ambulatory Limitations: no limitations - History of Present Illness Initial Comments: 25yo female presenting for cc of tachycardia. Patient states that she has had tachycardia for the past week. She states she was previously admitted for, and discharged home after she had a CT angiography, echocardiogram and was placed on telemetry> Patient states when she was evaluated by Dr. Peralta on Tuesday and told is she developed symptoms with elevated HR she was to come to the ER. patient states this morning she felt lightheaded, slightly short of breath, noticed her HR was elevated 120s she states these were the symptoms she was experiencing while she was admitted when her HR was high. Patient states she is starting to feel better as her heart rate comes down. Patietn denies leg pain, calf pain, hemoptysis, pain with a deep breath, sharp chest pains. Denies syncope. Denies abdominal pain/cramping, vaginal bleeding, vomiting or diarrhea. Denies fevers or URI symptoms. Patient appears well nontoxic in no acute distress. - Related Data Home Medications Medication Instructions Recorded Confirmed Sertraline HCl [Zoloft] 50 mg PO HS 04/23/20 08/21/20 Metoclopramide [Reglan] 10 mg PO ACHS PRN 08/08/20 08/21/20 Gummies 1 tab PO HS 08/21/20 08/21/20 diphenhydrAMINE [Benadryl] 25 mg PO HS PRN 08/21/20 08/21/20 Allergies Allergy/AdvReac Type Severity Reaction Status Date / Time buspirone HCl [From BuSpar] AdvReac NUMBNESS Verified 08/21/20 11:11 Review of Systems ROS Statement: Those systems with pertinent positive or pertinent negative responses have been documented in the HPI. ROS Other: All systems not noted in ROS Statement are negative. Past Medical History Past Medical History: Asthma Additional Past Medical History / Comment(s): Mild intermittent asthma, endometriosis, polycystic ovarian syndrome, history of opioid addiction, states has scoliosis, tachycardia History of Any Multi-Drug Resistant Organisms: None Reported Past Surgical History: Orthopedic Surgery Additional Past Surgical History / Comment(s): LAPAROSCOPIC REMOVAL LT OVARIAN CYST X 3, knee surgery left, right sublamation of petala on the right current Past Anesthesia/Blood Transfusion Reactions: No Reported Reaction Past Psychological History: Anxiety, Bipolar, Depression Smoking Status: Former smoker Past Alcohol Use History: None Reported Past Drug Use History: None Reported - Past Family History Father Family Medical History: Asthma Additional Family Medical History / Comment(s): Father is alive at age 44 with history of asthma and heart arrhythmia. Mother Family Medical History: Asthma, Thyroid Disorder Additional Family Medical History / Comment(s): States she thinks her mother has a history of DVT. Sister(s) Family Medical History: No Reported History Additional Family Medical History / Comment(s): She has 3 sisters with no major medical problems. She does not have any brothers. She does not have any children. General Exam - General Exam Comments Initial Comments: General: The patient is awake and alert, in no distress Eye: +3 mm pupils are equal, round and reactive to light, extra-ocular movements are intact. No nystagmus. There is normal conjunctiva bilaterally. No signs of icterus. Ears, nose, mouth and throat: There are moist mucous membranes and no oral lesions. Neck: The neck is supple, there is no tenderness or JVD. Cardiovascular: There is a regular rate and rhythm. No murmur, rub or gallop is appreciated. Respiratory: Lungs are clear to auscultation, respirations are non-labored, breath sounds are equal. No wheezes, stridor, rales, or rhonchi. Gastrointestinal: Soft, non-tender abdomen without masses or organomegaly noted. There is no rebound or guarding present. Musculoskeletal: Normal ROM, no tenderness. Strength 5/5. Sensation intact. Radial and DP pulses equal bilaterally 2+. Neurological: A&O x 3. CN II-XII intact, There are no obvious motor or sensory deficits. Coordination appears grossly intact. Speech is normal. Skin: Skin is warm and dry and no rashes or lesions are noted. Negative Homans sign pain to palpation no lower extremity swelling Psychiatric: Cooperative, appropriate mood & affect, normal judgment. Limitations: no limitations Course Vital Signs 08/21/20 08/21/20 08/21/20 10:09 11:00 12:54 Temperature 97.6 F 98.0 F Pulse Rate 113 H 109 H 105 H Respiratory 18 18 18 Rate Blood Pressure 109/69 107/63 O2 Sat by Pulse 99 98 98 Oximetry EKG Findings - EKG Comments: EKG Findings:: Ventricular rate 107 bpm, MO interval 118 ms, QRS sikh 70 ms, QT/QTC 336/448 this is sinus tachycardia no S elevation or depression is appreciated similar in characteristic to previous EKG. reviewed with attending provider Medical Decision Making - Medical Decision Making Leukocytosis. Hgb Stable. HR is elevated. Previous ECHO, CTA performed. Patient has no leg swelling. Symptoms resolved throughout stay, said to be intermittent. Pt on telemetry. EKG reviewed with attending Dr. Abdullahi who is agreeable to admission for observation, OBGYN and cardiology consultations at this time. Pt did not want repeat CTA performed at this time. - Lab Data Result diagrams: 08/21/20 10:32 08/21/20 10:32 Lab Results 08/21/20 08/21/20 08/21/20 Range/Units 10:32 10:32 10:32 WBC 13.0 H (3.8-10.6) k/uL RBC 3.45 L (3.80-5.40) m/uL Hgb 10.5 L (11.4-16.0) gm/dL Hct 31.2 L (34.0-46.0) % MCV 90.5 (80.0-100.0) fL MCH 30.5 (25.0-35.0) pg MCHC 33.7 (31.0-37.0) g/dL RDW 12.8 (11.5-15.5) % Plt Count 286 (150-450) k/uL Neutrophils % 75 % Lymphocytes % 15 % Monocytes % 7 % Eosinophils % 1 % Basophils % 0 % Neutrophils # 9.7 H (1.3-7.7) k/uL Lymphocytes # 2.0 (1.0-4.8) k/uL Monocytes # 1.0 (0-1.0) k/uL Eosinophils # 0.1 (0-0.7) k/uL Basophils # 0.0 (0-0.2) k/uL PT 9.3 (9.0-12.0) sec INR 0.9 (<1.2) APTT 20.6 L (22.0-30.0) sec Sodium (137-145) mmol/L Potassium (3.5-5.1) mmol/L Chloride (98-107) mmol/L Carbon Dioxide (22-30) mmol/L Anion Gap mmol/L BUN (7-17) mg/dL Creatinine (0.52-1.04) mg/dL Est GFR (CKD-EPI)AfAm (>60 ml/min/1.73 sqM) Est GFR (CKD-EPI)NonAf (>60 ml/min/1.73 sqM) Glucose (74-99) mg/dL Calcium (8.4-10.2) mg/dL Magnesium (1.6-2.3) mg/dL Total Bilirubin (0.2-1.3) mg/dL AST (14-36) U/L ALT (4-34) U/L Alkaline Phosphatase (38-126) U/L Troponin I (0.000-0.034) ng/mL Total Protein (6.3-8.2) g/dL Albumin (3.5-5.0) g/dL TSH (0.465-4.680) mIU/L Urine Color Light Yellow Urine Appearance Clear (Clear) Urine pH 7.5 (5.0-8.0) Ur Specific [place] 1.010 (1.001-1.035) Urine Protein Negative (Negative) Urine Glucose (UA) Negative (Negative) Urine Ketones Negative (Negative) Urine Blood Negative (Negative) Urine Nitrite Negative (Negative) Urine Bilirubin Negative (Negative) Urine Urobilinogen <2.0 (<2.0) mg/dL Ur Leukocyte Esterase Negative (Negative) 08/21/20 08/21/20 Range/Units 10:32 10:32 WBC (3.8-10.6) k/uL RBC (3.80-5.40) m/uL Hgb (11.4-16.0) gm/dL Hct (34.0-46.0) % MCV (80.0-100.0) fL MCH (25.0-35.0) pg MCHC (31.0-37.0) g/dL RDW (11.5-15.5) % Plt Count (150-450) k/uL Neutrophils % % Lymphocytes % % Monocytes % % Eosinophils % % Basophils % % Neutrophils # (1.3-7.7) k/uL Lymphocytes # (1.0-4.8) k/uL Monocytes # (0-1.0) k/uL Eosinophils # (0-0.7) k/uL Basophils # (0-0.2) k/uL PT (9.0-12.0) sec INR (<1.2) APTT (22.0-30.0) sec Sodium 134 L (137-145) mmol/L Potassium 4.1 (3.5-5.1) mmol/L Chloride 104 (98-107) mmol/L Carbon Dioxide 25 (22-30) mmol/L Anion Gap 5 mmol/L BUN 9 (7-17) mg/dL Creatinine 0.42 L (0.52-1.04) mg/dL Est GFR (CKD-EPI)AfAm >90 (>60 ml/min/1.73 sqM) Est GFR (CKD-EPI)NonAf >90 (>60 ml/min/1.73 sqM) Glucose 75 (74-99) mg/dL Calcium 9.2 (8.4-10.2) mg/dL Magnesium 1.6 (1.6-2.3) mg/dL Total Bilirubin 0.4 (0.2-1.3) mg/dL AST 20 (14-36) U/L ALT 12 (4-34) U/L Alkaline Phosphatase 66 (38-126) U/L Troponin I <0.012 (0.000-0.034) ng/mL Total Protein 6.3 (6.3-8.2) g/dL Albumin 3.5 (3.5-5.0) g/dL TSH 0.616 (0.465-4.680) mIU/L Urine Color Urine Appearance (Clear) Urine pH (5.0-8.0) Ur Specific Pompey (1.001-1.035) Urine Protein (Negative) Urine Glucose (UA) (Negative) Urine Ketones (Negative) Urine Blood (Negative) Urine Nitrite (Negative) Urine Bilirubin (Negative) Urine Urobilinogen (<2.0) mg/dL Ur Leukocyte Esterase (Negative) Disposition Clinical Impression: Tachycardia, , Lightheaded, Dyspnea Disposition: ADMITTED IP TO THIS [facility] Condition: Stable Is patient prescribed a controlled substance at d/c from ED?: No Time of Disposition: 12:30 Decision to Admit Reason: Admit from EC Decision Date: 08/21/20 Decision Time: 12:30
[2020-08-21 13:45] VITALS: RESP 16
[2020-08-21] MEDS ORDERED: INFLUENZA VACCINE (6 MOS+) 60 MCG/0.5 ML SYRINGE IM ONE (14:03)
--- NOTE | 2020-08-21 14:44 | P.CRDCN ---
History of Present Illness Consult date: 08/21/20 Chief complaint: Palpitations, dizziness History of present illness: This is a pleasant 25-year-old female who is 30 weeks , recent hospitalization 2 weeks ago with complaints of tachycardia, her heart rate at that time was documented to be the 110-120 range, sinus tachycardia. She also had an echo performed that admission which revealed a normal left ventricular systolic function. Patient presents back to the hospital on this occasion with symptoms of dizziness and heart racing. She states that her heart rate was in the 120 to 1:30 range at home and she became very dizzy. EKG was performed in the emergency room, reveals a sinus tachycardia with nonspecific ST-T wave changes. Currently on the monitor she is a sinus tachycardia. Upon review of the rhythm strips from prior admission, there is no evidence of any atrial arrhythmia, no evidence of any SVT. Patient does drink enough water, she does not drink a significant amount of caffeinated beverages. Chest x-ray did not reveal any acute cardiopulmonary process. Blood pressure 107/70 with a heart rate of 108 at present, respirations 16, she is afebrile. White blood cell count 13.0, hemoglobin 10.5, platelet count 286. Sodium 134, potassium 4.1, BUN 9, creatinine 0.4. Troponins negative times one. TSH level was drawn on August 08 came back to be 0.4 with a TSH of 0.9, this admission 0.6. Past Medical History Past Medical History: Asthma Additional Past Medical History / Comment(s): Mild intermittent asthma, endometriosis, polycystic ovarian syndrome, history of opioid addiction, states has scoliosis, tachycardia History of Any Multi-Drug Resistant Organisms: None Reported Past Surgical History: Orthopedic Surgery Additional Past Surgical History / Comment(s): LAPAROSCOPIC REMOVAL LT OVARIAN CYST X 3, knee surgery left, right sublamation of petala on the right current Past Anesthesia/Blood Transfusion Reactions: No Reported Reaction Smoking Status: Former smoker - Past Family History Father Family Medical History: Asthma Additional Family Medical History / Comment(s): Father is alive at age 44 with history of asthma and heart arrhythmia. Mother Family Medical History: Asthma, Thyroid Disorder Additional Family Medical History / Comment(s): States she thinks her mother has a history of DVT. Sister(s) Family Medical History: No Reported History Additional Family Medical History / Comment(s): She has 3 sisters with no major medical problems. She does not have any brothers. She does not have any children. Medications and Allergies Home Medications Medication Instructions Recorded Confirmed Type Sertraline HCl [Zoloft] 50 mg PO HS 04/23/20 08/21/20 History Metoclopramide [Reglan] 10 mg PO ACHS PRN 08/08/20 08/21/20 History Gummies 1 tab PO HS 08/21/20 08/21/20 History diphenhydrAMINE [Benadryl] 25 mg PO HS PRN 08/21/20 08/21/20 History Allergies Allergy/AdvReac Type Severity Reaction Status Date / Time buspirone HCl [From BuSpar] AdvReac NUMBNESS Verified 08/21/20 11:11 Physical Exam Vitals: Vital Signs Temp Pulse Pulse Resp BP BP Pulse Ox 08/21/20 13:45 102 H 16 08/21/20 13:44 98.4 F 102 H 16 107/70 100 08/21/20 12:54 98.0 F 105 H 18 107/63 98 08/21/20 11:00 109 H 18 98 08/21/20 10:09 97.6 F 113 H 18 109/69 99 Intake and Output 08/20/20 08/21/20 08/21/20 22:59 06:59 14:59 Intake Total 200 Balance 200 Intake: Oral 200 Other: Voiding Method Toilet Weight 72.121 kg PHYSICAL EXAMINATION: GENERAL: 45-year-old female in no acute distress at the time of my examination HEENT: Head is atraumatic, normocephalic. Pupils equal, round. Sclera anic teric. Conjunctiva are clear. Mucous membranes of the mouth are moist. Neck is supple. There is no elevated jugular venous pressure. No carotid bruit is heard. HEART EXAMINATION: Heart S1, S2 normal. No murmur or gallop heard. CHEST EXAMINATION: Lungs are clear to auscultation and precussion. No chest wall tenderness is noted on palpation or with deep breathing. ABDOMEN: Nontender, no palpable masses. EXTREMITIES: 2+ peripheral pulses with no evidence of peripheral edema and no calf tenderness noted. NEUROLOGIC patient is awake, alert and oriented 3 . Results 08/21/20 10:32 08/21/20 10:32 Cardiac Enzymes 08/21/20 08/21/20 Range/Units 10:32 10:32 AST 20 (14-36) U/L Troponin I <0.012 (0.000-0.034) ng/mL Coagulation 08/21/20 Range/Units 10:32 PT 9.3 (9.0-12.0) sec APTT 20.6 L (22.0-30.0) sec CBC 08/21/20 Range/Units 10:32 WBC 13.0 H (3.8-10.6) k/uL RBC 3.45 L (3.80-5.40) m/uL Hgb 10.5 L (11.4-16.0) gm/dL Hct 31.2 L (34.0-46.0) % Plt Count 286 (150-450) k/uL Comprehensive Metabolic Panel 08/21/20 Range/Units 10:32 Sodium 134 L (137-145) mmol/L Potassium 4.1 (3.5-5.1) mmol/L Chloride 104 (98-107) mmol/L Carbon Dioxide 25 (22-30) mmol/L BUN 9 (7-17) mg/dL Creatinine 0.42 L (0.52-1.04) mg/dL Glucose 75 (74-99) mg/dL Calcium 9.2 (8.4-10.2) mg/dL AST 20 (14-36) U/L ALT 12 (4-34) U/L Alkaline Phosphatase 66 (38-126) U/L Total Protein 6.3 (6.3-8.2) g/dL Albumin 3.5 (3.5-5.0) g/dL Current Medications Generic Name Dose Route Start Last Admin Trade Name Freq PRN Reason Stop Dose Admin Sodium Chloride 1,000 mls @ 130 mls/hr 08/21/20 10:18 08/21/20 10:44 Saline 0.9% IV 08/21/20 17:59 130 mls/hr .[id number] STA Administration Naloxone HCl 0.2 mg 08/21/20 12:28 Naloxone 0.4 Mg/Ml 1 Ml Vial IV Q2M PRN Opioid Reversal Intake and Output 08/20/20 08/21/20 08/21/20 22:59 06:59 14:59 Intake Total 200 Balance 200 Intake: Oral 200 Other: Voiding Method Toilet Weight 72.121 kg Patient Weight 08/22/20 06:59 Weight 72.121 kg 08/21/20 10:32 08/21/20 10:32 EKG Interpretations (text) EKG shows a sinus tachycardia with nonspecific ST-T wave changes Assessment and Plan Plan: Assessment and plan #1 dizziness, and palpitations. EKG shows a sinus tachycardia, no significant arrhythmias noted. TSH level is normal. #2 anemia, hemoglobin 10.5 #3 30 weeks Plan Patient just had an echocardiogram with Doppler study performed 2 weeks ago, we will not perform a repeat echo on this admission. We will check orthostatic heart rate and blood pressure every shift. Continue to monitor for any significant arrhythmias. We will also check iron studies. Further recommendations to follow. DNP note has been reviewed, I agree with a documented findings and plan of care. Patient was seen and examined.
[2020-08-21] MEDS ORDERED: METOCLOPRAMIDE 10 MG TAB PO PRN (15:56)
[2020-08-21] MEDS ORDERED: diphenhydrAMINE 25 MG CAP PO PRN (15:56)
--- NOTE | 2020-08-21 17:00 | P.OBCN ---
History of Present Illness Consult date: 08/21/20 Reason for consult: other () Chief complaint: tachycardia/SOB/chest pain History of present illness: This is a 25-year-old 1 para 0 at 30 weeks of that presented to the hospital for a second time with complaints of tachycardia, chest pain, shortness of breath. Patient was seen previously and evaluated and subsequent discharged home. Patient has a known patient of and has been receiving routine care. Patient stated symptoms increased to therefore she presented to the emergency department earlier today. Patient did have a normal EKG and has been evaluated by cardiology this admission. She states they are talking about Holter monitor at home to monitor her episodes of tachycardia and symptoms. Review of Systems Constitutional: Reports fatigue, Denies fever Ears, nose, mouth and throat: Denies headache Cardiovascular: Reports chest pain, Reports leg edema Respiratory: Reports dyspnea Gastrointestinal: Denies nausea, Denies vomiting Genitourinary: Reports Past Medical History Past Medical History: Asthma Additional Past Medical History / Comment(s): Mild intermittent asthma, endometriosis, polycystic ovarian syndrome, history of opioid addiction, states has scoliosis, tachycardia History of Any Multi-Drug Resistant Organisms: None Reported Past Surgical History: Orthopedic Surgery Additional Past Surgical History / Comment(s): LAPAROSCOPIC REMOVAL LT OVARIAN CYST X 3, knee surgery left, right sublamation of petala on the right current Past Anesthesia/Blood Transfusion Reactions: No Reported Reaction Smoking Status: Former smoker - Past Family History Father Family Medical History: Asthma Additional Family Medical History / Comment(s): Father is alive at age 44 with history of asthma and heart arrhythmia. Mother Family Medical History: Asthma, Thyroid Disorder Additional Family Medical History / Comment(s): States she thinks her mother has a history of DVT. Sister(s) Family Medical History: No Reported History Additional Family Medical History / Comment(s): She has 3 sisters with no major medical problems. She does not have any brothers. She does not have any children. Medications and Allergies Home Medications Medication Instructions Recorded Confirmed Type Sertraline HCl [Zoloft] 50 mg PO HS 04/23/20 08/21/20 History Metoclopramide [Reglan] 10 mg PO ACHS PRN 08/08/20 08/21/20 History Gummies 1 tab PO HS 08/21/20 08/21/20 History diphenhydrAMINE [Benadryl] 25 mg PO HS PRN 08/21/20 08/21/20 History Allergies Allergy/AdvReac Type Severity Reaction Status Date / Time buspirone HCl [From BuSpar] AdvReac NUMBNESS Verified 08/21/20 11:11 Exam Osteopathic Statement: *. No significant issues noted on an osteopathic structural exam other than those noted in the History and Physical/Consult. Vital Signs Temp Pulse Pulse Pulse Pulse Pulse Resp 08/21/20 15:00 98.1 F 112 H 109 H 107 H 16 08/21/20 13:45 102 H 16 08/21/20 13:44 98.4 F 102 H 16 08/21/20 12:54 98.0 F 105 H 18 08/21/20 11:00 109 H 18 08/21/20 10:09 97.6 F 113 H 18 BP BP BP BP BP Pulse Ox 08/21/20 15:00 114/71 110/65 106/64 98 08/21/20 13:45 08/21/20 13:44 107/70 100 08/21/20 12:54 107/63 98 08/21/20 11:00 98 08/21/20 10:09 109/69 99 Intake and Output 08/21/20 08/21/20 08/21/20 06:59 14:59 22:59 Intake Total 200 Balance 200 Intake: Oral 200 Other: Voiding Method Toilet Toilet Weight 72.121 kg Targeted physical exam is performed in this date in general this is a well- nourished well-developed female in no obvious distress. Patient is resting comfortably in bed. Heart is noted to have a regular rate and rhythm, breathing is noted to nonlabored, abdomen is gravid, cervical exam is deferred, nonstress test is ordered for evaluation. Results Result Diagrams: 08/21/20 10:32 08/21/20 10:32 Abnormal Lab Results - Last 24 Hours (Table) 08/21/20 08/21/20 08/21/20 Range/Units 10:32 10:32 10:32 WBC 13.0 H (3.8-10.6) k/uL RBC 3.45 L (3.80-5.40) m/uL Hgb 10.5 L (11.4-16.0) gm/dL Hct 31.2 L (34.0-46.0) % Neutrophils # 9.7 H (1.3-7.7) k/uL APTT 20.6 L (22.0-30.0) sec Sodium 134 L (137-145) mmol/L Creatinine 0.42 L (0.52-1.04) mg/dL Assessment and Plan (1) 30 weeks gestation of Current Visit: Yes Status: Acute Code(s): Z3A.30 - 30 WEEKS GESTATION OF SNOMED Code(s): 34636151 (2) Chest pain Current Visit: Yes Status: Acute Code(s): R07.9 - CHEST PAIN, UNSPECIFIED SNOMED Code(s): 95481916 (3) Dyspnea Current Visit: Yes Status: Acute Code(s): R06.00 - DYSPNEA, UNSPECIFIED SNOMED Code(s): 925280710 (4) Tachycardia Current Visit: Yes Status: Acute Code(s): R00.0 - TACHYCARDIA, UNSPECIFIED SNOMED Code(s): 6942182 Plan: This 25-year-old 1 para 0 at 30 weeks of gestation presented earlier with complaints of increasing symptoms of tachycardia, chest pain, shortness of breath. Patient has been evaluated by cardiology. From an obstetrical standpoint we will order an ultrasound to evaluate growth and amniotic fluid index, NST is ordered for a 20 minute monitor strip every shift. If tachycardia continues to be a problem and no causes is appreciated, propranolol could be considered and is safe in . I of course defer this to cardiology but if this is an option, it is safe in . I discussed obstetrical care with this patient including ultrasound to evaluate for growth and monitoring strips. She states understanding. She does state she is feeling better since admission, only complaint being fatigue her only.
--- NOTE | 2020-08-21 17:45 | US ---
EXAMINATION TYPE: US OB >= 14 wk fetus DATE OF EXAM: 08/21/2020 COMPARISON: 2019 CLINICAL HISTORY: growthTachycardia TECHNIQUE: Transabdominal (TA) GESTATIONAL AGE / DATING Physician Established: (30 weeks/2 days) EDC: 10/28/2020 Dates by LMP: (30 weeks/2 days) EDC: 10/28/2020 Dates by First Scan: (30 weeks/0 days) EDC: 10/30/2020 Dates by Current Scan: (29 weeks/5 days) EDC: 11/01/2020 SURVEY IUP: Single PLACENTA: Posterior PREVIA: No Previa SUZY: 15.7 cm Normal CERVICAL LENGTH (transabdominal: norm > 3.0cm): 3.1 cm BIOMETRY PRESENTATION: Vertex BPD: 7.4 cm 29 weeks / 5 days HC: 27.8 cm 30 weeks / 4 days AC: 24.8 cm 29 weeks / 1 days FL: 5.6 cm 29 weeks / 3 days ESTIMATED WEIGHT IN GRAMS: 1373 grams ESTIMATED WEIGHT IN LBS/OZ: 3 lbs. 0 oz. WEIGHT PERCENTAGE BASED ON ESTABLISHED DATES: 12% HC/AC: 1.12 Normal FL/AC: 23% Normal HEART RATE: 144 bpm RHYTHM: Normal Viable single IUP measuring 29 weeks 5 days with a heart rate of 144bpm and an estimated delivery bailey e of 11/01/2020. IMPRESSION: The ultrasound gestational age is 29 weeks and 5 days. No complicating process seen. There is satisfa ctory growth compared to 04/23/2020 exam.
--- NOTE | 2020-08-21 17:55 | HP ---
HISTORY AND PHYSICAL DATE OF SERVICE: 08/21/2020 CHIEF COMPLAINTS: Tachycardia, palpitations. HISTORY OF PRESENT ILLNESS: This 25-year-old woman with a past medical history of mild intermittent asthma, history of endometriosis, history of polycystic ovarian syndrome, history of opioid addiction, history of scoliosis, history of tachycardia, history of DJD, history of anxiety, bipolar, depression, being followed by Dr. Mejia in the outpatient setting, is actually 30 weeks' . The patient had palpitations and a tight feeling across the chest. The patient was recently admitted to [facility]. Extensive evaluation was done, including CT scan, CT angio as well as 2D echocardiogram, and was within normal limits. The patient was symptomatic on a daily basis and the patient's heart rate was in the 120s. The patient was concerned and she came to [facility] and was admitted for further evaluation and treatment. There is no history of any fever, rigor or chills. No history of headache, loss of consciousness, seizures at this time. PAST MEDICAL HISTORY: History of asthma, history of endometriosis, polycystic ovarian syndrome, history of anxiety, bipolar, depression. MEDICATIONS: 1. Benadryl 25 mg at bedtime p.r.n. 2. Zoloft. 3. gummies. 4. Reglan 10 mg before meals and at bedtime p.r.n. ALLERGIES: BUSPAR. FAMILY HISTORY: History of asthma in the family. SOCIAL HISTORY: Previous history of smoking. No current smoking or alcohol intake. REVIEW OF SYSTEMS: ENT: No diminished hearing. No diminished vision. CARDIOVASCULAR SYSTEM: As mentioned earlier. RESPIRATORY SYSTEM: As mentioned earlier. GI: No nausea, vomiting. : As mentioned earlier. NERVOUS SYSTEM: No numbness, weakness. ALLERGY/IMMUNOLOGY: ntd MUSCULOSKELETAL: As mentioned earlier. HEMATOLOGY/ONCOLOGY: No history of anemia. ENDOCRINE: No history of diabetes, hypothyroidism. CONSTITUTIONAL: As mentioned earlier. DERMATOLOGY: Negative. RHEUMATOLOGY: Negative. PSYCHIATRY: As mentioned earlier. PHYSICAL EXAMINATION: Patient is alert, oriented x3. Pulse is 112, blood pressure is 114/70, respirations 16, temperature 98.1, pulse ox 98% on room air. HEENT: Conjunctivae normal. NECK: No jugular venous distention. CARDIOVASCULAR SYSTEM: S1, S2. Tachycardia. RESPIRATORY SYSTEM: Breath sounds diminished at the bases. No rhonchi. No crackles. ABDOMEN: Soft. Thirty weeks' . LEGS: No edema. No swelling. NERVOUS SYSTEM: Higher functions as mentioned earlier. Moves all 4 limbs. No focal motor or sensory deficit. LYMPHATICS: No lymph node palpable in neck, axillae or groin. SKIN: No ulcer, rash, bleeding. JOINTS: No active deforming arthropathy. LABS: Labs at this time show WBC 13, hemoglobin 10.5. Sodium is 135. ASSESSMENT: 1. Tachycardia and palpitations for evaluation. 2. Sinus tachycardia. 3. Increased white count. 4. Anemia, normocytic anemia of . 5. Thirty weeks' . 6. Hyponatremia. 7. History of mild intermittent asthma. 8. History of endometriosis. 9. History of polycystic ovarian syndrome. 10.History of opioid addiction. 11.Scoliosis. 12.History of anxiety, bipolar, depression. 13.Remote history of nicotine dependence. 14.FULL CODE. RECOMMENDATIONS AND DISCUSSION: In this 25-year-old woman who presented with multiple complex medical issues, we will monitor the patient closely. Telemetry. Cardiology consultation. T3, T4. Further evaluations. Prognosis guarded. NETWORK ARCHITECT MANAGER will be consulted. Prognosis guarded. Further recommendations to follow. A copy of this dictation is being forwarded to Dr. Jackie Dawson, who is the primary physician. MMODL / IJN: [id number] / SHANNON
[2020-08-21 18:26] LABS: Amphetamine Screen,Urine Not Detected (NotDetected); Barbiturate Screen,Urine Not Detected (NotDetected); Benzodiazepines Screen,Urine Not Detected (NotDetected); Cocaine Screen,Urine Not Detected (NotDetected); Methadone Screen, Urine Not Detected (NotDetected); Opiate Screen,Urine Not Detected (NotDetected); Oxycodone Screen, Urine Not Detected (NotDetected); Phencyclidine Screen,Urine Not Detected (NotDetected); Tricyclic Antidepressant,Urine Not Detected (NotDetected); Urn Cannabinoid Scrn Not Detected (NotDetected)
[2020-08-21] MEDS ORDERED: SERTRALINE 50 MG TAB PO SCH (21:00)
[2020-08-21] MEDS ORDERED: PRENATAL VIT-IRON-FOLIC ACID 1 EACH CAP PO SCH (21:00)
[2020-08-21 21:56] LABS: % Iron Saturation 12.97 (12.00-45.00); Ferritin 9.1 ng/mL (10.0-291.0)
[2020-08-22 07:04] LABS: Basophils % (A) 0 %; Eosinophils # (A) 0.1 k/uL (0-0.7); Eosinophils % (A) 1 %; HCT 30.4 % (34.0-46.0); HGB 9.7 gm/dL (11.4-16.0); Lymphocytes # (A) 2.2 k/uL (1.0-4.8); Lymphocytes % (A) 17 %; MCH 29.8 pg (25.0-35.0); Mean Platelet Volume 7.9; Monocytes # (A) 0.8 k/uL (0-1.0); Monocytes % (A) 6 %; Neutrophils % (A) 75 %; Platelet Count 285 k/uL (150-450); RBC 3.27 m/uL (3.80-5.40); RDW 13.5 % (11.5-15.5); WBC 13.4 k/uL (3.8-10.6)
[2020-08-22 07:15] LABS: African American GFR (CKD) >90 (>60 ml/min/1.73 sqM); Anion Gap 4 mmol/L; Blood Urea Nitrogen 6 mg/dL (7-17); Calcium 8.5 mg/dL (8.4-10.2); Carbon Dioxide 24 mmol/L (22-30); Chloride 106 mmol/L (98-107); Glucose 78 mg/dL (74-99); Non-African American GFR(CKD) >90 (>60 ml/min/1.73 sqM); Potassium 4.3 mmol/L (3.5-5.1); Sodium 134 mmol/L (137-145)
[2020-08-22 07:30] LABS: T4, Free (Free Thyroxine) 0.74 ng/dL (0.78-2.19)
[2020-08-22 08:03] VITALS: BP 99/62; PULSE 102; TEMP 98
--- NOTE | 2020-08-22 09:08 | PN ---
PROGRESS NOTE Mrs. Ruiz is a 25-year-old lady who presented with symptoms of palpitation associated with dizziness. On the monitor, she has been in sinus rhythm with episode of sinus tachycardia but no evidence of SVT. She is feeling reasonably well this morning. She had mild palpitation but only sinus tachycardia on the monitor. She has no chest pain, no syncope, and no significant change in her breathing. She continues to be on vitamin and IV fluid. PHYSICAL EXAMINATION: Blood pressure running in the 100s with a heart rate in the low 100, sinus. LUNGS: Clear. HEART: Regular rate and rhythm, S1, S2. No S3. No rub. ABDOMEN: Soft, nontender. EXTREMITIES: No edema. LAB DATA: Revealed hemoglobin 9.7, BUN and creatinine 6 and 0.46. Her TSH is 0.616. IMPRESSION: 1. Episode of palpitation with only sinus tachycardia on the monitor. There is no evidence of SVT. 2. . RECOMMENDATION: From the cardiac standpoint, patient can be discharged home today and will set her up to have an event monitor for 1 week as an outpatient to rule out any evidence of SVT. I discussed with her the findings. I would not recommend treatment with beta blockers at this time. MMODL / IJN: [id number] /
[2020-08-22 11:47] LABS: C Reactive Protein <5.0 mg/L (<10.0)
--- NOTE | 2020-08-22 22:35 | DS ---
DISCHARGE SUMMARY DATE OF SERVICE: 08/22/2020 FINAL DIAGNOSES: 1. Tachycardia and palpitations with negative workup. 2. Sinus tachycardia. 3. Increased white count. 4. Anemia, normocytic anemia of . 5. Thirty weeks' . 6. Hyponatremia. 7. History of mild intermittent asthma. 8. History of endometriosis. 9. Polycystic ovarian syndrome. 10.History of opioid addiction. 11.Scoliosis. 12.History of anxiety, bipolar, depression. 13.Remote history of nicotine dependence. 14.FULL CODE. DISCHARGE DISPOSITION: The patient will be discharged in stable condition with guarded prognosis. HISTORY OF PRESENT ILLNESS: This 25-year-old woman with a past medical history of multiple medical problems, being followed by Dr. Jackie Dawson in the outpatient setting, was admitted with tachycardia. Patient was monitored closely. Only sinus tachycardia was noted around the rate of 100. The patient is asymptomatic. Cardiology saw the patient. Patient had a previous extensive workup, including CT angio. Currently the D-dimer was negative and Cardiology recommended event monitoring. ELECTRONIC ASSEMBLER GROUP LEADER saw the patient. On exam, vitals are stable. CARDIOVASCULAR SYSTEM: S1, S2 muffled. ABDOMEN: Soft. NERVOUS SYSTEM: No focal deficit. Heart rate, as mentioned earlier, is around 107. DISCHARGE ADVICE AND MEDICATIONS: 1. Diet is cardiac. 2. Activity limited until followup. 3. Avoid caffeine products. 4. Follow up with Dr. Dawson in 1-2 days. 5. Follow up with Dr. Herrera and Dr. Morris as recommended. 6. Benadryl p.r.n. 7. gummies. 8. Reglan p.r.n. 9. Zoloft 50 mg at bedtime. Once again, the patient will be discharged in stable condition with guarded prognosis. MMODL / IJN: [id number] /
== END 2020-08-22 12:28 | disposition home or self-care (01) ==
LOC: EC 09:57 → 3NCARDOBS 12:28
PROVIDERS: ADMIT Hospitalist; ATTEND Hospitalist
DX: O99.413 Diseases of the circulatory system complicating pregnancy, third trimester (principal); O99.013 Anemia complicating pregnancy, third trimester; D64.9 Anemia, unspecified; O99.283 Endocrine, nutritional and metabolic diseases complicating pregnancy, third trimester; O99.343 Other mental disorders complicating pregnancy, third trimester; F31.9 Bipolar disorder, unspecified; F41.9 Anxiety disorder, unspecified; R00.0 Tachycardia, unspecified; R00.2 Palpitations; O99.513 Diseases of the respiratory system complicating pregnancy, third trimester; Z3A.30 30 weeks gestation of pregnancy; Z23 Encounter for immunization; E28.2 Polycystic ovarian syndrome; F11.21 Opioid dependence, in remission; M41.9 Scoliosis, unspecified; Z87.891 Personal history of nicotine dependence; Z87.42 Personal history of other diseases of the female genital tract; Z82.5 Family history of asthma and other chronic lower respiratory diseases; Z83.49 Family history of other endocrine, nutritional and metabolic diseases; Z79.899 Other long term (current) drug therapy; Z88.8 Allergy status to other drugs, medicaments and biological substances
CPT/HCPCS: 93005 ×2; 96361 ×3; 96360; 99285; 36415; 84439; 84481; 80053; 80048; 85652; 82728; 83540; 83550; 83735; 84443; 84484; 85025 ×2; 85610; 85730; 86140; 81003; 80306; 71046; 76805; 90686; G0378 ×2; U0003; G0008

== ENCOUNTER 2020-09-27 20:30 | Outpatient (CLI) | payer OTHER ==
[2020-09-27] MEDS ORDERED: ACETAMINOPHEN TAB 325 MG TAB PO STA (21:21)
[2020-09-27 21:41] LABS: Basophils # (A) 0.1 k/uL (0-0.2); Basophils % (A) 1 %; Eosinophils # (A) 0.1 k/uL (0-0.7); Eosinophils % (A) 1 %; HCT 32.2 % (34.0-46.0); HGB 10.7 gm/dL (11.4-16.0); Lymphocytes # (A) 2.7 k/uL (1.0-4.8); Lymphocytes % (A) 16 %; MCH 29.8 pg (25.0-35.0); MCHC 33.1 g/dL (31.0-37.0); MCV 89.8 fL (80.0-100.0); Mean Platelet Volume 8.1; Monocytes % (A) 6 %; Neutrophils # (A) 12.4 k/uL (1.3-7.7); Neutrophils % (A) 74 %; Platelet Count 274 k/uL (150-450); RBC 3.59 m/uL (3.80-5.40); RDW 15.2 % (11.5-15.5); WBC 16.7 k/uL (3.8-10.6)
[2020-09-27 21:53] LABS: Appearance,Urine Cloudy (Clear); Bilirubin,Urine Negative (Negative); Blood,Urine Negative (Negative); Color,Urine Colorless; Glucose,Urine (UA) Negative (Negative); Ketones,Urine Negative (Negative); Leukocyte Esterase,Urine Trace (Negative); Nitrite,Urine Negative (Negative); Protein,Urine Negative (Negative); RBC,Urine 1 /hpf (0-5); Specific Gravity,Urine 1.001 (1.001-1.035); Sperm,Urine Rare /hpf; Squamous Epithelial Cell,Urine 7 /hpf (0-4); Urobilinogen,Urine <2.0 mg/dL (<2.0); WBC,Urine 3 /hpf (0-5)
[2020-09-27 22:28] VITALS: RESP 16; TEMP 97.2
[2020-09-27 22:36] VITALS: BP 108/63; PULSE 103
--- NOTE | 2020-12-23 19:30 | P.MSEPDOC ---
Presenting Problems - Arrival Data Date of Arrival on Unit: 09/27/02 Time of Arrival on Unit: 20:30 Mode of Transport: Ambulatory - Complaint OB-Reason for Admission/Chief Complaint: Decreased Movement, Pain Comment: pt. states sharp pain 3/10 pain to RLQ at rest, and increases to 7/10 with palpation or movement. Medical History - Information : 1 Para: 0 Term: 0 : 0 Abortions: Spontaneous or Elective: 0 Number of Living Children: 0 - Gestational Age Gestational Age by IBIS (wks/days): 35 Weeks and 4 Days Review of Systems - Review of Systems Constitutional: No problems Breast: No problems ENT: No problems Cardiovascular: No problems Respiratory: No problems Gastrointestinal: No problems Genitourinary: No problems Musculoskeletal: No problems Neurological: No problems Skin: No problems Comment: tachycardia with pregnacy, HX asthma Vital Signs - Temperature Temperature: 97.2 F Temperature Source: Temporal Artery Scan - Pulse Pulse Oximetery Pulse Rate: 103 Pulse Assessment Method: Pulse Oximetry - Respirations Respiratory Rate: 16 Oxygen Delivery Method: Room Air O2 Sat by Pulse Oximetry: 97 - Blood Pressure Right Arm Sitting Blood Pressure: 108/63 Blood Pressure Mean: 78 Blood Pressure Source: Automatic Cuff Medical Screen Scoring (Pre) - Cervical Exam Membranes: Intact - Uterine Contractions Frequency: N/A Duration: N/A Intensity: N/A - Maternal Vital Signs Maternal Temperature: N/A Maternal Blood Pressure: N/A Signs of Preeclampsia: N/A - Maternal Trauma Maternal Trauma: N/A - Assessment - Baby A Baseline FHR: 135 Heart Rate - NICHD Category: Category I (Normal) = 0 NST: Reactive Position: N/A Station: N/A - Total Score - Baby A Total Score - Baby A: 0 - Total Score - Baby B Total Score - Baby B: 0 - Total Score - Baby C Total Score - Baby C: 0 - Level of Risk - Baby A Level of Risk - Baby A: Low (0-5) - Level of Risk - Baby B Level of Risk - Baby B: Low (0-5) - Level of Risk - Baby C Level of Risk - Baby C: Low (0-5) Physician Notification (Pre) - Physician Notified Physician Notified Date: 09/27/20 Physician Notified Time: 21:20 New Order Received: Yes - Notification Comment Comment: Administer tylenol 650mg, collect CBC and UA. Medical Screen Scoring (Post) - Cervical Exam Membranes: Intact - Uterine Contractions Frequency: N/A Duration: N/A Intensity: N/A - Maternal Vital Signs Maternal Temperature: N/A Signs of Preeclampsia: N/A Maternal Respirations: N/A - Pain Assessment Pain Location and Character: Right, Lower, Abdomen Pain Scale Used: Numeric (1 - 10) Pain Intensity: 1 Pain Management Goal: 0 Pain Description: Sharp Pain Radiation Location: lower ABD Pain Frequency: Intermittent Pain Duration: 1 Pain Duration Units: Minutes Pain Behavior: Vocalization Pain Aggravating Factors: Activity, ADL's, Changing Position, Walking Pharmacological Interventions: PRN Medication - Maternal Trauma Maternal Trauma: N/A - Assessment - Baby A Heart Rate: 135 Heart Rate - NICHD Category: Category I (Normal) = 0 NST: Reactive Position: N/A Station: N/A - Total Score Total Score - Baby A: 0 Total Score - Baby B: 0 Total Score - Baby C: 0 - Post Treatment Level of Risk Post Treatment Level of Risk - Baby A: Low (0-5) Post Treatment Level of Risk - Baby B: Low (0-5) Post Treatment Level of Risk - Baby C: Low (0-5) Physician Notification (Post) - Physician Notified Physician Notified Date: 09/27/20 Physician Notified Time: 21:59 Physician/Practitioner Notified:: Abena Spoke With: bAena New Order Received: Yes - Notification Comment Comment: CBC and urine reviewed with Dr. Kraft, FHTs, and contractions reviewed as well and vitals. Order to discharge patient home with orders for minimal activity, pelvic rest, and no work this weekend, increase oral fluids, continue to take tyelnol as needed for pain, and to follow up in office on tuesday09/29/2020. Disposition - Disposition OB Disposition: Discharge to home Discharge Date: 09/27/20 Discharge Time: 22:18 I agree with the RN Medical Screening Exam: Yes Case reviewed; plan agreed upon as documented in EMR&OBIX.: Yes Diagnosis: pain in
== END 2020-09-27 22:18 | disposition home or self-care (01) ==
LOC: FBPOP 20:30
PROVIDERS: ATTEND Obstetrics & Gynecology
DX: O36.8130 Decreased fetal movements, third trimester, not applicable or unspecified (principal); R10.31 Right lower quadrant pain; Z3A.35 35 weeks gestation of pregnancy
CPT/HCPCS: 59025; 84112; 85025; 81001; G0463; 99213

== ENCOUNTER → 2020-10-09 | Outpatient (CLI) | payer OTHER | END | disposition home or self-care (01) | LOC: LABWHC1 12:51 | PROVIDERS: ATTEND Obstetrics & Gynecology | DX: Z03.818 Encounter for observation for suspected exposure to other biological agents ruled out (principal) | CPT/HCPCS: U0003; C9803 ==

== ENCOUNTER 2020-10-23 06:25 | Inpatient (IN) | payer OTHER ==
[2020-10-23] MEDS ORDERED: METHYLERGONOVINE 0.2 MG/ML 1 ML AMP IM PRN (06:44)
[2020-10-23] MEDS ORDERED: OXYTOCIN 10 UNIT/ML 1 ML VIAL IM PRN (06:44)
[2020-10-23] MEDS ORDERED: TERBUTALINE 1 MG/ML VIAL SQ PRN (06:44)
[2020-10-23] MEDS ORDERED: CARBOPROST TROMETHAMINE 250 MCG/ML 1 ML AMP IM PRN (06:44)
[2020-10-23] MEDS ORDERED: LIDOCAINE 0.5% (PF) 5 MG/ML (50 ML SDV) SQ PRN (06:44)
[2020-10-23] MEDS ORDERED: OXYTOCIN 30 UNITS/500 ML NS 30 UNIT in SALINE 1 500ML.BAG IV SCH (06:45)
[2020-10-23 06:50] LABS: Basophils % (A) 0 %; Eosinophils # (A) 0.2 k/uL (0-0.7); Eosinophils % (A) 1 %; HCT 37.9 % (34.0-46.0); HGB 12.1 gm/dL (11.4-16.0); Lymphocytes # (A) 2.5 k/uL (1.0-4.8); Lymphocytes % (A) 17 %; MCH 29.2 pg (25.0-35.0); MCHC 31.9 g/dL (31.0-37.0); MCV 91.8 fL (80.0-100.0); Mean Platelet Volume 7.3; Monocytes # (A) 0.7 k/uL (0-1.0); Monocytes % (A) 5 %; Neutrophils # (A) 11.2 k/uL (1.3-7.7); Neutrophils % (A) 75 %; Platelet Count 303 k/uL (150-450); RBC 4.13 m/uL (3.80-5.40); RDW 15.3 % (11.5-15.5); WBC 14.9 k/uL (3.8-10.6)
[2020-10-23] MEDS: LACTATED RINGERS 1,000 ML IV SCH ×2 (06:55→11:44)
--- NOTE | 2020-10-23 08:39 | P.HPOB ---
History of Present Illness H&P Date: 10/23/20 Chief Complaint: 39-2/7 weeks, elective The patient is a 25-year-old 1 para 0 admitted at 39-2/7 weeks as established by last Mester. And confirmed by six-week ultrasound. She is admitted for elective induction of labor with all signs reassuring, category 1 heart rate tracing, and a relatively favorable cervix. Her has been essentially uncomplicated and group B strep status is negative. She is Rh- and received RhoGAM at 28 weeks. Obstetrical history: 1 para 0 with current statistics listed in history present illness. EDC of 10/28/2020 was established by last menstrual period and confirmed by six-week ultrasound. Laboratory workup demonstrates a blood type of A- with a negative antibody screen. Rubella status is immune. The remainder of the laboratory workup was within normal limits. One hour Glucola was normal and group B strep status is negative. Gynecology history: Unremarkable with no history of any infections to include STDs. She does have history of endometriosis in the past. Review of Systems Review of systems is confined to history of present illness. Past Medical History Past Medical History: Asthma Additional Past Medical History / Comment(s): Mild intermittent asthma, endometriosis, polycystic ovarian syndrome, history of opioid addiction, states has scoliosis, tachycardia History of Any Multi-Drug Resistant Organisms: None Reported Past Surgical History: Orthopedic Surgery Additional Past Surgical History / Comment(s): LAPAROSCOPIC REMOVAL LT OVARIAN CYST X 3, knee surgery left, right sublamation of petala on the right current Past Anesthesia/Blood Transfusion Reactions: No Reported Reaction Past Psychological History: Anxiety, Bipolar, Depression Additional Psychological History / Comment(s): Pt resides with boyfriend. She is 30 weeks . She is independent Smoking Status: Never smoker Past Alcohol Use History: None Reported Additional Past Alcohol Use History / Comment(s): Pt started smoking in 2010 and quit 12/2019 when found she was . Pt has past hx of alcohol use-none for 5 yrs. Past Drug Use History: None Reported Additional Drug Use History / Comment(s): Pt states she has hx of heroin/benzo abuse but has not used any drugs in 5 yrs. - Past Family History Father Family Medical History: Asthma Additional Family Medical History / Comment(s): Father is alive at age 44 with history of asthma and heart arrhythmia. Mother Family Medical History: Asthma, Thyroid Disorder Additional Family Medical History / Comment(s): States she thinks her mother has a history of DVT. Sister(s) Family Medical History: No Reported History Additional Family Medical History / Comment(s): She has 3 sisters with no major medical problems. She does not have any brothers. She does not have any children. Medications and Allergies Home Medications Medication Instructions Recorded Confirmed Type Metoclopramide [Reglan] 10 mg PO ACHS PRN 08/08/20 10/23/20 History Gummies 1 tab PO HS 08/21/20 10/23/20 History diphenhydrAMINE [Benadryl] 25 mg PO HS PRN 08/21/20 10/23/20 History Sertraline HCl [Zoloft] 50 mg PO DAILY 10/23/20 10/23/20 History Allergies Allergy/AdvReac Type Severity Reaction Status Date / Time buspirone HCl [From BuSpar] AdvReac NUMBNESS Verified 08/21/20 11:11 Exam Vital Signs Temp Pulse Resp BP Pulse Ox 10/23/20 06:40 97.6 F 127 H 18 132/74 98 Intake and Output 10/22/20 10/23/20 10/23/20 22:59 06:59 14:59 Other: Weight 81.647 kg General, this is a well-developed, well-nourished white female in no acute distress. Her heart has a regular rhythm and rate without murmur. Her lungs are clear to auscultation bilaterally in all doherty. Her abdomen is gravid, nondistended, has normal active bowel sounds, soft, nontender, and without any palpable masses aside from the uterine fundus. Her extremities are without any cyanosis, clubbing, or significant edema and are nontender to palpation bilaterally. Digital cervical examination demonstrates her surgery 1+ centimeters dilated, approximately 50% effaced, with the vertex in presentation at -2 station. Artificial rupture of membranes is carried out demonstrating clear fluid. Results Result Diagrams: 10/23/20 06:40 Abnormal Lab Results - Last 24 Hours (Table) 10/23/20 Range/Units 06:40 WBC 14.9 H (3.8-10.6) k/uL Neutrophils # 11.2 H (1.3-7.7) k/uL Assessment and Plan (1) Term Current Visit: Yes Status: Acute Code(s): Z34.90 - ENCNTR FOR SUPRVSN OF NORMAL , UNSP, UNSP TRIMESTER SNOMED Code(s): 74544260 Plan: The patient has been admitted for elective induction understanding the process may be longer and perhaps slightly higher risk for delivery. Pitocin augmentation has been started and she has undergone artificial rupture of membranes. She will have close maternal and surveillance and expectant management will be practiced. She is a good candidate for either IV or epidural analgesia, whichever she may choose.
[2020-10-23] MEDS: BUTORPHANOL 1 MG/ML 1 ML VIAL IV PRN ×2 (09:11→11:39)
[2020-10-23] MEDS ORDERED: fentaNYL (PF) 50 MCG/ML 5 ML AMP ONE (12:01)
[2020-10-23] MEDS ORDERED: ROPIVACAINE 5MG/ML 20ML VIAL ONE (12:01)
[2020-10-23] MEDS ORDERED: SODIUM CHLORIDE 0.9% 100 ML BAG ONE (12:01)
[2020-10-23] MEDS ORDERED: diphenhydrAMINE 50 MG/ML 1 ML VIAL IVP PRN ×2 (20:24)
[2020-10-23] MEDS ORDERED: ACETAMINOPHEN TAB 325 MG TAB PO PRN (20:24)
[2020-10-23] MEDS ORDERED: LANOLIN CREAM 5 GM TUBE TOPICAL PRN (20:24)
[2020-10-23] MEDS ORDERED: diphenhydrAMINE 25 MG CAP PO PRN (20:24)
[2020-10-23] MEDS ORDERED: ZOLPIDEM 5 MG TAB PO PRN (20:24)
[2020-10-23] MEDS ORDERED: diphenhydrAMINE 50 MG CAP PO PRN (20:24)
[2020-10-23] MEDS ORDERED: HYDROcodone/APAP 5-325MG 1 EACH TAB PO PRN (20:24)
[2020-10-23] MEDS ORDERED: HYDROcodone/APAP 7.5-325MG 1 EACH TAB PO PRN (20:24)
[2020-10-23] MEDS ORDERED: HYDROCORTISONE 2.5% RECTAL CREAM 30 GM TUBE RECTAL PRN (20:24)
[2020-10-23] MEDS ORDERED: SIMETHICONE 80 MG CHEWABLE PO PRN (20:24)
--- NOTE | 2020-10-23 20:27 | P.PROBDLV ---
Vaginal Delivery Note - . Vaginal Delivery Note: The patient is a 25-year-old 1 para 0 admitted at 39-2/7 weeks by good dating parameters. She is admitted for elective induction with all signs reassuring, category 1 heart rate tracing. Her has been uncomplicated for the most part and she is Rh- and received RhoGAM at 28 weeks. On labor and delivery, she had Pitocin started followed by artificial rupture of membranes for clear fluid. She had an epidural catheter placed just prior to the onset of the active phase of labor. She then made fairly consistent and quick progress to the active phase of labor to complete. She labored down for approximately 40 12:55 hour and then began pushing. She pushed for approximately 35 minutes to a normal spontaneous vaginal delivery of a viable 7 lbs. 3 oz. baby girl with Apgars of 8 at 1 minute and 9 at 5 minutes delivered in the left occiput anterior position. The placenta was delivered spontaneously, intact, and grossly normal with a grossly normal three-vessel cord inserted approximate 4-5 cm from the margin of the placental disc. There were no lacerations of the perineum, vagina, or cervix. Estimated blood loss for the case is approximately 150 mL. There were no complications. All sponge, instrument, needle counts were correct. Both mother and are resting comfortably in recovery.
[2020-10-23] MEDS ORDERED: OXYTOCIN 20 UNITS/1000 ML NS 1,000 ML IV SCH (20:30)
[2020-10-23] MEDS: BENZOCAINE/MENTHOL SPRAY 1 GM/SPRAY AEROSOL TOPICAL PRN (22:11)
[2020-10-24] MEDS: LACTATED RINGERS 1,000 ML IV SCH (01:36)
[2020-10-24] MEDS: IBUPROFEN 600 MG TAB PO PRN ×2 (07:30→17:59)
[2020-10-24] MEDS: SENNOSIDES-DOCUSATE SODIUM 1 EACH TAB PO SCH ×2 (07:31→20:14)
[2020-10-24 07:35] LABS: Basophils % (A) 0 %; Eosinophils % (A) 0 %; HCT 29.4 % (34.0-46.0); Lymphocytes # (A) 2.7 k/uL (1.0-4.8); Lymphocytes % (A) 9 %; MCH 29.8 pg (25.0-35.0); MCHC 32.9 g/dL (31.0-37.0); MCV 90.6 fL (80.0-100.0); Mean Platelet Volume 7.9; Monocytes # (A) 1.6 k/uL (0-1.0); Monocytes % (A) 6 %; Neutrophils % (A) 84 %; Platelet Count 273 k/uL (150-450); RBC 3.25 m/uL (3.80-5.40); RDW 15.9 % (11.5-15.5); WBC 28.6 k/uL (3.8-10.6)
[2020-10-24 07:37] LABS: HGB 9.7 gm/dL (11.4-16.0)
--- NOTE | 2020-10-24 10:29 | P.DS ---
Providers Date of admission: 10/23/20 06:25 Expected date of discharge: 10/24/20 Attending physician: Dereck Morris Primary care physician: Stated None - Discharge Diagnosis(es) (1) Term Current Visit: Yes Status: Acute (2) Normal spontaneous vaginal delivery Current Visit: Yes Status: Acute Hospital Course: The patient is a 25-year-old 1 para 0 admitted at 39-2/7 weeks by good dating parameters. She is admitted for elective induction of labor with all signs reassuring. Her has been essentially incompetent though she is Rh- and received RhoGAM at 28 weeks. Group B strep status was negative. On labor and delivery, she had Pitocin started followed by artificial rupture of membranes for clear fluid. She had an epidural catheter placed around the onset of the active phase of labor and made steady progress to the active phase to complete and then pushed after laboring down for a short period of time for approximately 35 minutes to a normal spontaneous vaginal delivery of a viable 7 lbs. 3 oz. baby girl with Apgars of 8 at 1 minute and 9 at 5 minutes. Her course was unremarkable vital signs being stable and her temperature was afebrile throughout. She was deemed stable for discharge on day #1 was discharged home to follow-up in the office in 6 weeks' time routinely. Discharge instructions included calling for any significantly increased bleeding or foul-smelling lochia, significantly increased fever abdominal pain, perineal complaints, breast complaints, or anything else that concerned her. She is additionally instructed to have nothing in the vagina for at least 6 weeks time to include intercourse. She understood her instructions and agrees follow up as noted above. Discharge medications included continued vitamins as she has opted to breast-feed as well as [id number] analgesic pain medications. Maternal blood type is A- and cord blood was sent for evaluation for the necessity of RhoGAM prior to discharge. Rubella status is immune. Procedures: #1. Pitocin induction #2. Artificial rupture of membranes #3. Epidural analgesia #4. Normal spontaneous vaginal delivery Patient Condition at Discharge: Stable Plan - Discharge Summary New Discharge Prescriptions: No Action Metoclopramide [Reglan] 10 mg PO ACHS PRN PRN Reason: Nausea diphenhydrAMINE [Benadryl] 25 mg PO HS PRN PRN Reason: Insomnia Gummies 1 tab PO HS Sertraline HCl [Zoloft] 50 mg PO DAILY Discharge Medication List Metoclopramide [Reglan] 10 mg PO ACHS PRN 08/08/20 [History] Gummies 1 tab PO HS 08/21/20 [History] diphenhydrAMINE [Benadryl] 25 mg PO HS PRN 08/21/20 [History] Sertraline HCl [Zoloft] 50 mg PO DAILY 10/23/20 [History] Follow up Appointment(s)/Referral(s): Dereck Morris MD [STAFF PHYSICIAN] - 6 Weeks Discharge Disposition: HOME SELF-CARE
[2020-10-24] MEDS: BENZOCAINE/MENTHOL SPRAY 1 GM/SPRAY AEROSOL TOPICAL PRN (18:17)
[2020-10-24 20:34] VITALS: BP 127/77; PULSE 104; RESP 18; TEMP 98.5
== END 2020-10-24 21:00 | disposition home or self-care (01) | DRG 807 ==
LOC: 4FBP 06:25
PROVIDERS: ADMIT Obstetrics & Gynecology; ATTEND Obstetrics & Gynecology
PROC: 3E0R3BZ Introduction of Anesthetic Agent into Spinal Canal, Percutaneous Approach (ICD-10-PCS; principal; 2020-10-23)
PROC: 00HU33Z Insertion of Infusion Device into Spinal Canal, Percutaneous Approach (ICD-10-PCS; principal; 2020-10-23)
PROC: 3E033VJ Introduction of Other Hormone into Peripheral Vein, Percutaneous Approach (ICD-10-PCS; principal; 2020-10-23)
PROC: 10E0XZZ Delivery of Products of Conception, External Approach (ICD-10-PCS; principal; 2020-10-23)
PROC: 10907ZC Drainage of Amniotic Fluid, Therapeutic from Products of Conception, Via Natural or Artificial Opening (ICD-10-PCS; principal; 2020-10-23)
DX: O26.893 Other specified pregnancy related conditions, third trimester (principal); Z37.0 Single live birth; O99.52 Diseases of the respiratory system complicating childbirth; J45.20 Mild intermittent asthma, uncomplicated; O99.344 Other mental disorders complicating childbirth; F31.9 Bipolar disorder, unspecified; F41.9 Anxiety disorder, unspecified; O99.892 Other specified diseases and conditions complicating childbirth; O99.284 Endocrine, nutritional and metabolic diseases complicating childbirth; E28.2 Polycystic ovarian syndrome; M41.9 Scoliosis, unspecified; Z3A.39 39 weeks gestation of pregnancy; Z79.899 Other long term (current) drug therapy; Z87.891 Personal history of nicotine dependence; Z98.890 Other specified postprocedural states; Z88.8 Allergy status to other drugs, medicaments and biological substances; Z82.5 Family history of asthma and other chronic lower respiratory diseases; Z83.49 Family history of other endocrine, nutritional and metabolic diseases
CPT/HCPCS: 85025; 86850; 86870; 86880; 86900; 86901

== ENCOUNTER 2021-07-18 19:14 | Emergency (ER) | payer OTHER ==
[2021-07-18 19:22] VITALS: BP 108/70; RESP 22; TEMP 98.1
--- NOTE | 2021-07-18 19:26 | ED ---
General Adult HPI - General Chief complaint: Shortness of Breath Stated complaint: Asthma attack Time Seen by Provider: 07/18/21 19:24 Source: patient Mode of arrival: ambulatory Limitations: no limitations - History of Present Illness Initial comments: Patient presents to the ED complaining of having dyspnea for the past 2 hours or so. Patient states that she is an asthmatic, and she states that [place] was [place] when her dyspnea began. Patient states that she took 4 puffs of her albuterol inhaler with minimal relief, so she decided to come to the emergency department. Patient states that her dyspnea has currently improved. Patient denies recent cough or cold symptoms, any pain, fever or chills, headache, sore throat, chest pain, palpitations, dizziness, abdominal pain, nausea/vomiting/diarrhea, dysuria or urinary symptoms, leg or calf swelling or pain, or any other symptoms or complaints. Patient states that she does have se asonal allergies. - Related Data Home Medications Medication Instructions Recorded Confirmed Metoclopramide [Reglan] 10 mg PO ACHS PRN 08/08/20 10/23/20 Gummies 1 tab PO HS 08/21/20 10/23/20 diphenhydrAMINE [Benadryl] 25 mg PO HS PRN 08/21/20 10/23/20 Sertraline HCl [Zoloft] 50 mg PO DAILY 10/23/20 10/23/20 Previous Rx's Medication Instructions Recorded predniSONE [Deltasone] 20 mg PO BID #10 tab 07/18/21 Allergies Allergy/AdvReac Type Severity Reaction Status Date / Time buspirone HCl [From BuSpar] AdvReac NUMBNESS Verified 07/18/21 19:22 Review of Systems ROS Statement: Those systems with pertinent positive or pertinent negative responses have been documented in the HPI. ROS Other: All systems not noted in ROS Statement are negative. Past Medical History Past Medical History: Asthma Additional Past Medical History / Comment(s): Mild intermittent asthma, endometriosis, polycystic ovarian syndrome, history of opioid addiction, states has scoliosis, tachycardia History of Any Multi-Drug Resistant Organisms: None Reported Past Surgical History: Orthopedic Surgery Additional Past Surgical History / Comment(s): LAPAROSCOPIC REMOVAL LT OVARIAN CYST X 3, knee surgery left, right sublamation of petala on the right current Past Anesthesia/Blood Transfusion Reactions: No Reported Reaction Past Psychological History: Anxiety, Bipolar, Depression Smoking Status: Current every day smoker Past Alcohol Use History: None Reported Past Drug Use History: None Reported - Past Family History Father Family Medical History: Asthma Additional Family Medical History / Comment(s): Father is alive at age 44 with history of asthma and heart arrhythmia. Mother Family Medical History: Asthma, Thyroid Disorder Additional Family Medical History / Comment(s): States she thinks her mother has a history of DVT. Sister(s) Family Medical History: No Reported History Additional Family Medical History / Comment(s): She has 3 sisters with no major medical problems. She does not have any brothers. She does not have any children. General Exam Limitations: no limitations General appearance: alert, in no apparent distress Head exam: Present: atraumatic, normocephalic Eye exam: Present: normal appearance, EOMI ENT exam: Present: mucous membranes moist Neck exam: Present: other (Trachea is in midline) Respiratory exam: Present: other (Equal breath sounds bilaterally; few scattered expiratory wheezes bilaterally). Absent: respiratory distress, rales, rhonchi, stridor Cardiovascular Exam: Present: regular rate, normal rhythm, normal heart sounds, other (Normal radial pulses bilaterally) GI/Abdominal exam: Present: soft. Absent: distended, tenderness, guarding Extremities exam: Present: other (Negative Homans sign bilaterally). Absent: tenderness, pedal edema, calf tenderness Neurological exam: Present: alert, oriented X3. Absent: motor sensory deficit Psychiatric exam: Present: normal affect, normal mood Skin exam: Present: warm, dry, intact, normal color Course Vital Signs 07/18/21 07/18/21 07/18/21 19:20 19:34 19:49 Temperature 98.1 F Pulse Rate 111 H 102 H 102 H Respiratory 22 Rate Blood Pressure 108/70 O2 Sat by Pulse 97 Oximetry - Reevaluation(s) Reevaluation #1: 07/18/21 20:40 Patient's states that her dyspnea has improved with the DuoNeb treatment that she was given in the ED. Patient remains alert and breathing comfortably with a normal room air oxygen saturation. Patient was counseled about asthma/dyspnea, and she was clearly explained return and follow-up instructions. Patient was instructed to follow up closely with her primary care provider. Patient was also instructed to use her albuterol inhaler as needed/as prescribed. Patient was provided with a prescription for a short course of prednisone as well. Disposition Clinical Impression: Asthma with acute exacerbation Disposition: HOME SELF-CARE Condition: Stable Instructions (If sedation given, give patient instructions): Asthma (ED) Additional Instructions: Return to the ER immediately should you develop increased shortness of breath, chest pain, a fever, feeling dizzy or faint, or new or worsening symptoms. Follow up closely with your primary care provider. Prescriptions: predniSONE [Deltasone] 20 mg PO BID #10 tab Is patient prescribed a controlled substance at d/c from ED?: No Referrals: Jackie Dawson MD [Primary Care Provider] - 1-2 days Time of Disposition: 20:42
[2021-07-18] MEDS ORDERED: IPRATROPIUM-ALBUTEROL 3 ML NEB INHALATION STA (19:27)
[2021-07-18] MEDS ORDERED: predniSONE 20 MG TAB PO STA (19:33)
[2021-07-18 19:39] VITALS: PULSE 102
== END 2021-07-18 20:43 | disposition home or self-care (01) ==
LOC: EC 19:14
DX: J45.21 Mild intermittent asthma with (acute) exacerbation (principal); F32.9 Major depressive disorder, single episode, unspecified; F41.9 Anxiety disorder, unspecified; F17.200 Nicotine dependence, unspecified, uncomplicated; Z79.52 Long term (current) use of systemic steroids; Z79.899 Other long term (current) drug therapy
CPT/HCPCS: 94640; 99284; J7512

== ENCOUNTER 2022-02-25 12:21 | Emergency (ER) | payer OTHER ==
[2022-02-25 12:49] VITALS: RESP 18; TEMP 99.2
--- NOTE | 2022-02-25 14:34 | ED ---
General Adult HPI - General Chief complaint: Head Injury Stated complaint: head injury Time Seen by Provider: 02/25/22 13:01 Source: patient Mode of arrival: ambulatory Limitations: no limitations - History of Present Illness Initial comments: This 26-year-old female presents emergency Department with nausea, headache, trouble concentrating after hitting her head yesterday. Patient states she went to reach behind the couch and hit her left restorationism on a wooden ledge. Patient states she did take Motrin yesterday which did help her headache, however she states when she woke up today she was feeling nauseous, had a headache and experienced trouble concentrating while at school. Patient states she has had a concussion years ago when she was a child. Patient states her headache is currently 3/10 and patient does not want any Tylenol or Motrin at this time. Patient states she has been eating and drinking as normal, however she states she does have a little bit of decreased appetite. Patient denies any vomiting, fever, chest pain, shortness of breath, abdominal pain, lightheadedness, dizziness, falling, loss of consciousness, change in vision, change in bowel or bladder. - Related Data Home Medications Medication Instructions Recorded Confirmed Sertraline HCl [Zoloft] 50 mg PO DAILY 10/23/20 02/25/22 Albuterol Nebulized [Ventolin 2.5 mg INHALATION RT-QID PRN 02/25/22 02/25/22 Nebulized] Famotidine [Pepcid] 20 mg PO DAILY 02/25/22 02/25/22 Loratadine 10 mg PO DAILY 02/25/22 02/25/22 Allergies Allergy/AdvReac Type Severity Reaction Status Date / Time buspirone HCl [From BuSpar] AdvReac Leg Verified 02/25/22 14:01 numbness Review of Systems ROS Statement: Those systems with pertinent positive or pertinent negative responses have been documented in the HPI. ROS Other: All systems not noted in ROS Statement are negative. Past Medical History Past Medical History: Asthma Additional Past Medical History / Comment(s): Mild intermittent asthma, endometriosis, polycystic ovarian syndrome, history of opioid addiction, states has scoliosis, tachycardia History of Any Multi-Drug Resistant Organisms: None Reported Past Surgical History: Orthopedic Surgery Additional Past Surgical History / Comment(s): LAPAROSCOPIC REMOVAL LT OVARIAN CYST X 3, knee surgery left, right sublamation of petala on the right current Past Anesthesia/Blood Transfusion Reactions: No Reported Reaction Past Psychological History: Anxiety, Bipolar, Depression Smoking Status: Current every day smoker Past Alcohol Use History: None Reported Past Drug Use History: Marijuana - Past Family History Father Family Medical History: Asthma Additional Family Medical History / Comment(s): Father is alive at age 44 with history of asthma and heart arrhythmia. Mother Family Medical History: Asthma, Thyroid Disorder Additional Family Medical History / Comment(s): States she thinks her mother has a history of DVT. Sister(s) Family Medical History: No Reported History Additional Family Medical History / Comment(s): She has 3 sisters with no major medical problems. She does not have any brothers. She does not have any children. General Exam Limitations: no limitations General appearance: alert, in no apparent distress Head exam: Present: atraumatic, normocephalic, normal inspection Eye exam: Present: normal appearance, PERRL, EOMI. Absent: scleral icterus, conjunctival injection, periorbital swelling, periorbital tenderness Pupils: Present: normal accommodation, other (Mild tenderness to her left restorationism as she states that is directly where the would hit.). Absent: irregular, unequal, miosis, mydriatic ENT exam: Present: normal exam, normal oropharynx, mucous membranes moist, TM's normal bilaterally Neck exam: Present: normal inspection, full ROM. Absent: tenderness, meningismus, lymphadenopathy, thyromegaly Respiratory exam: Present: normal lung sounds bilaterally. Absent: respiratory distress, wheezes, rales, rhonchi, stridor, chest wall tenderness Cardiovascular Exam: Present: regular rate, normal rhythm, normal heart sounds. Absent: systolic murmur, diastolic murmur, rubs, gallop, clicks GI/Abdominal exam: Present: soft, normal bowel sounds. Absent: distended, tenderness, guarding, rebound, rigid Extremities exam: Present: normal inspection, full ROM, normal capillary refill. Absent: tenderness, pedal edema, joint swelling, calf tenderness Back exam: Present: normal inspection, full ROM. Absent: CVA tenderness (R), CVA tenderness (L), paraspinal tenderness, vertebral tenderness Neurological exam: Present: alert, oriented X3, CN II-XII intact, normal gait Psychiatric exam: Present: normal affect, normal mood Skin exam: Present: warm, dry, intact, normal color. Absent: rash Course Vital Signs 02/25/22 12:47 Temperature 99.2 F Pulse Rate 88 Respiratory 18 Rate Blood Pressure 112/75 O2 Sat by Pulse 98 Oximetry Medical Decision Making - Medical Decision Making This 26-year-old female presents to the emergency department with nausea, trouble concentrating and headache after hitting her left restorationism yesterday afternoon on a wooden window ledge. CT brain and C-spine without contrast impression: No acute fracture or dislocation evident in the cervical spine. No acute intracranial hemorrhage, mass effect or midline shift seen. Concussion syndrome discussed in detail with patient. Patient instructed to follow up with her primary care provider in next 1-2 days. Strict return precautions were discussed. Patient verbally agreed to plan. Patient sent home in stable condition. Case discussed in detail my attending, Dr. Smallwood. Disposition Clinical Impression: Closed head injury Disposition: HOME SELF-CARE Instructions (If sedation given, give patient instructions): Concussion (ED), Post Concussion Syndrome (ED) Additional Instructions: Please follow-up with your primary care provider next 1-2 days. Return to the emergency department with any new, worsening, or concerning symptoms. Is patient prescribed a controlled substance at d/c from ED?: No Referrals: Jackie Dawson MD [Primary Care Provider] - 1-2 days Time of Disposition: 15:37
--- NOTE | 2022-02-25 15:00 | CT ---
EXAMINATION TYPE: CT brain cspine wo con DATE OF EXAM: 02/25/2022 COMPARISON: CT dated 04/23/2015 HISTORY: Injury to left rastafarian region yesterday. Headache, dizziness, vision changes. CT DLP: 1304.5 mGycm Automated exposure control for dose reduction was used. TECHNIQUE: CT scan of the head and cervical spine are performed without contrast. FINDINGS: There is no acute intracranial hemorrhage, mass effect, or midline shift identified. The ventricles and sulci are within normal limits in size. The globes are intact and the visualized sin uses are clear. Cervical spine is visualized in its entirety from C1 through upper thoracic levels and demonstrates s atisfactory alignment without evidence of acute fracture or dislocation. Prevertebral soft tissue ap pears within normal limits. The C1-C2 articulation is unremarkable. Prominent nasopharyngeal soft ti ssue, please correlate clinically. IMPRESSION: 1. There is no acute fracture or dislocation evident in the cervical spine. 2. No acute intracranial hemorrhage, mass effect, or midline shift is seen.
[2022-02-25 15:56] VITALS: BP 115/65; PULSE 64
== END 2022-02-25 15:54 | disposition home or self-care (01) ==
LOC: EC 12:21
DX: S09.90XA Unspecified injury of head, initial encounter (principal); J45.909 Unspecified asthma, uncomplicated; F41.9 Anxiety disorder, unspecified; F31.9 Bipolar disorder, unspecified; F17.200 Nicotine dependence, unspecified, uncomplicated; F12.90 Cannabis use, unspecified, uncomplicated; W22.8XXA Striking against or struck by other objects, initial encounter
CPT/HCPCS: 70450; 72125; 99284

== ENCOUNTER 2022-08-12 12:07 | Day surgery (SDC) | payer OTHER ==
[2022-08-10 14:06] VITALS: BMI 22.3
[~2022-08-12 12:07] MED LIST changes: -DEXAMETHASONE SOD PHOSPHATE 10 MG/ML 1 ML VIAL IV ONE; -LACTATED RINGERS 1,000 ML IV SCH; -MIDAZOLAM 2 MG/2 ML VIAL IV PRN; -Pre Op ABX Message 1 EACH MISC MISCELLANE ONE; -SCOPOLAMINE 1.5MG/72HR PATCH TRANSDERM ONE; +SODIUM CHLORIDE 0.9% 1,000 ML IV SCH
[2022-08-12 12:39] VITALS: BP 107/72; PULSE 73; RESP 18; TEMP 97.9
[2022-08-12] MEDS ORDERED: SODIUM CHLORIDE 0.9% 500 ML 500 ML IV ONE (12:39)
[2022-08-12] MEDS ORDERED: IV FLUID CONTINUATION 450 ML IV ONE (13:35)
--- NOTE | 2022-08-12 15:47 | P.EPPROC ---
- EP Procedure Note Electrophysiology Procedure Note: Diagnosis Recurrent presyncope Twelve-lead EKG shows sinus rhythm normal SC narrow QRS normal ST segments 0.[address] elevation inferolaterally consistent with early repolarization abnormality Normal QT interval Tilt table test per protocol Baseline heart rate 68 beats a minute Baseline blood pressure 105/65 mmHg Patient was tilted upright at an angle of 70 per protocol blood pressure remained stable through the procedure There was an increase in the heart rate to about 100 beats a minute within the first 10 minutes Patient complained of being dizzy and anxious Later her chest felt heavy Peak heart rate 104 beats a minute during the test When she was laid supine, heart rate settled down to 67 beats a minute and her blood pressure remained stable Impression Normal twelve-lead EKG Orthostatic intolerance/postural tachycardia
== END 2022-08-12 15:05 | disposition home or self-care (01) ==
LOC: CATHEP 12:07
PROVIDERS: ATTEND Internal Medicine Clinical Cardiac Electrophysiology
DX: G90.A Postural orthostatic tachycardia syndrome [POTS] (principal); R55 Syncope and collapse
CPT/HCPCS: 84703; 93660

== ENCOUNTER 2022-09-13 13:17 | Emergency (ER) | payer OTHER ==
[2022-09-13 13:31] VITALS: RESP 20
[2022-09-13 14:00] LABS: ALT 16 U/L (4-34); AST 20 U/L (14-36); African American GFR (CKD) >90 (>60 ml/min/1.73 sqM); Albumin 5.1 g/dL (3.5-5.0); Alkaline Phosphatase 34 U/L (38-126); Amylase 57 U/L (30-110); Anion Gap 9 mmol/L; Blood Urea Nitrogen 16 mg/dL (7-17); Calcium 9.6 mg/dL (8.4-10.2); Carbon Dioxide 28 mmol/L (22-30); Chloride 104 mmol/L (98-107); Glucose 106 mg/dL (74-99); Lipase 90 U/L (23-300); Non-African American GFR(CKD) >90 (>60 ml/min/1.73 sqM); Potassium 3.8 mmol/L (3.5-5.1); Sodium 141 mmol/L (137-145); Total Bilirubin 0.7 mg/dL (0.2-1.3); Total Protein 7.4 g/dL (6.3-8.2)
[2022-09-13 14:14] LABS: Basophils # (A) 0.1 k/uL (0-0.2); Basophils % (A) 1 %; Eosinophils % (A) 0 %; HCT 41.4 % (34.0-46.0); HGB 14.3 gm/dL (11.4-16.0); Lymphocytes # (A) 2.4 k/uL (1.0-4.8); Lymphocytes % (A) 27 %; MCH 30.5 pg (25.0-35.0); MCHC 34.5 g/dL (31.0-37.0); MCV 88.4 fL (80.0-100.0); Mean Platelet Volume 7.5; Monocytes # (A) 0.4 k/uL (0-1.0); Monocytes % (A) 4 %; Neutrophils # (A) 5.9 k/uL (1.3-7.7); Neutrophils % (A) 66 %; Platelet Count 246 k/uL (150-450); RBC 4.69 m/uL (3.80-5.40); RDW 12.8 % (11.5-15.5)
[2022-09-13 14:28] LABS: Appearance,Urine Cloudy (Clear); Bacteria,Urine Rare /hpf; Bilirubin,Urine Negative (Negative); Blood,Urine Negative (Negative); Color,Urine Yellow; Glucose,Urine (UA) Negative (Negative); Ketones,Urine 1+ (Negative); Leukocyte Esterase,Urine Moderate (Negative); Mucus,Urine Moderate /hpf; Nitrite,Urine Negative (Negative); Protein,Urine Negative (Negative); RBC,Urine 1 /hpf (0-5); Specific Gravity,Urine 1.024 (1.001-1.035); Squamous Epithelial Cell,Urine 10 /hpf (0-4); Urobilinogen,Urine <2.0 mg/dL (<2.0); WBC,Urine 3 /hpf (0-5)
--- NOTE | 2022-09-13 16:17 | US ---
EXAMINATION TYPE: US pelvic complete DATE OF EXAM: 09/13/2022 COMPARISON: 06/18/2017 CLINICAL HISTORY: llq abdomen pain r/o torsion. Left pelvic pain for 2 weeks. History of ovarian cys ts, polycystic ovarian syndrome, endometriosis. TECHNIQUE: . Transabdominal sonographic images of the pelvis were acquired. Date of LMP: Unknown, 2 years prior. History of Nexplanon. EXAM MEASUREMENTS: Uterus: 7.4 x 3.5 x 5.0 cm Endometrial Stripe: 0.38 cm Right Ovary: 5.0 x 2.0 x 2.5 cm Left Ovary: 6.4 x 3.7 x 2.8 cm 1. Uterus: Retroverted wnl 2. Endometrium: wnl 3. Right Ovary: Multifollicular correlating with polycystic ovarian syndrome history. 4. Left Ovary: Multifollicular correlating with polycystic ovarian syndrome history. Large anechoic cyst measuring 4.6 x 3.3 x 3.8 cm. Reverberation artifact demonstrated. No definitive internal septa tions. Spectral, color and waveform doppler imaging shows good arterial and venous flow within the ovaries ; there is no evidence for ovarian torsion. 5. Bilateral Adnexa: wnl 6. Posterior cul-de-sac: wnl IMPRESSION: 1. No ultrasound evidence for ovarian torsion. 2. Findings consistent with reported history of polycystic ovarian syndrome. 3. Left ovarian 4.6 cm cyst. Follow-up ultrasound in 6-12 weeks is recommended to assess for interva l change.
[2022-09-13] MEDS ORDERED: traMADol 50 MG TAB PO STA (16:34)
[2022-09-13 17:18] VITALS: BP 111/68; PULSE 91; TEMP 98.2
--- NOTE | 2022-09-13 17:19 | ED ---
Abdominal Pain HPI - General Chief Complaint: Abdominal Pain Stated Complaint: poss burst ovarian cyst Time Seen by Provider: 09/13/22 16:09 Source: patient, old records reviewed Mode of arrival: ambulatory Limitations: no limitations - History of Present Illness Initial Comments: 27-year-old female with past history of PCO S, endometriosis presents to the emergency room with upper quadrant pain. States that it started earlier this week however has gotten progressive. Last night the pain became significantly worse. No radiation. No dysuria, hematuria or difficulty voiding. Does admit to some constipation. No abnormal vaginal bleeding or discharge. Does not have menstrual cycle in 2 years due to control. Follows with Dr. Morris. He has had 3 abdominal surgeries for ovarian cyst removal. She is taking Motrin at home for pain control without improvement. Called her primary care physician who recommended she come into the emergency room. Denies fevers. No concern for sexually transmitted infections. No other alleviating, precipitating or modifying factors - Related Data Previous Rx's Medication Instructions Recorded traMADol HCl [Ultram] 50 mg PO Q6H PRN #30 tab 09/13/22 Allergies Allergy/AdvReac Type Severity Reaction Status Date / Time buspirone HCl [From BuSpar] AdvReac Leg Verified 09/13/22 16:57 numbness Review of Systems ROS Statement: Those systems with pertinent positive or pertinent negative responses have been documented in the HPI. ROS Other: All systems not noted in ROS Statement are negative. Past Medical History Past Medical History: Asthma, Syncope Additional Past Medical History / Comment(s): Mild intermittent asthma, endometriosis, polycystic ovarian syndrome, history of opioid addiction, states has scoliosis, intermittent tachycardia started during pregancy. See Dr. Menchaca's H&P. History of Any Multi-Drug Resistant Organisms: None Reported Past Surgical History: Orthopedic Surgery Additional Past Surgical History / Comment(s): LAPAROSCOPIC REMOVAL LT OVARIAN CYST X 3, knee surgery left. See Dr. Menchaca's H&P. Past Anesthesia/Blood Transfusion Reactions: No Reported Reaction Past Psychological History: Anxiety, Bipolar, Depression Smoking Status: Current every day smoker - Past Family History Mother Family Medical History: Asthma, Coronary Artery Disease (CAD), Deep Vein Thrombosis (DVT), Thyroid Disorder Sister(s) Family Medical History: No Reported History Additional Family Medical History / Comment(s): She has 3 sisters with no major medical problems. She does not have any brothers. She does not have any children. General Exam Limitations: no limitations General appearance: alert, in no apparent distress Head exam: Present: atraumatic, normocephalic, normal inspection Eye exam: Present: normal appearance, PERRL, EOMI. Absent: scleral icterus, conjunctival injection, periorbital swelling ENT exam: Present: normal exam, mucous membranes moist Neck exam: Present: normal inspection. Absent: tenderness, meningismus, lymphadenopathy Respiratory exam: Present: normal lung sounds bilaterally. Absent: respiratory distress, wheezes, rales, rhonchi, stridor Cardiovascular Exam: Present: regular rate, normal rhythm, normal heart sounds. Absent: systolic murmur, diastolic murmur, rubs, gallop, clicks GI/Abdominal exam: Present: soft, tenderness (llq pain), normal bowel sounds. Absent: distended, guarding, rebound, rigid Extremities exam: Present: normal inspection, full ROM, normal capillary refill. Absent: tenderness, pedal edema, joint swelling, calf tenderness Back exam: Present: normal inspection Neurological exam: Present: alert, oriented X3, CN II-XII intact Psychiatric exam: Present: normal affect, normal mood Skin exam: Present: warm, dry, intact, normal color. Absent: rash Course Vital Signs 09/13/22 09/13/22 13:28 17:16 Temperature 98.6 F 98.2 F Pulse Rate 113 H 91 Respiratory 20 20 Rate Blood Pressure 117/73 111/68 O2 Sat by Pulse 100 99 Oximetry Medical Decision Making - Medical Decision Making Upon arrival patient is placed in room 27. History and physical exam was performed. IV access is established laboratory studies are conducted. Patient is sent for an ultrasound of her pelvis. Laboratory studies are reviewed. Patient has no clinical symptoms of urinary tract infection and therefore we will send a specimen for culture before treating. Ultrasound is performed which does demonstrate a left ovarian cyst which measures 4.6 cm in size. No signs of torsion. Patient was given tramadol for pain control. I did discuss the results with the patient. At this time the patient will be discharged home and needs to follow-up with her [facility]ET [facility]ER. Needs repeat ultrasound in 4-6 weeks to evaluate size of cyst. Return for any new or worsening symptoms. Will be given a short prescription for tramadol. Patient was agreeable to this plan and was discharged home in stable condition - Lab Data Result diagrams: 09/13/22 13:43 09/13/22 13:43 Lab Results 09/13/22 09/13/22 09/13/22 Range/Units 13:43 13:43 13:43 WBC 9.0 (3.8-10.6) k/uL RBC 4.69 (3.80-5.40) m/uL Hgb 14.3 (11.4-16.0) gm/dL Hct 41.4 (34.0-46.0) % MCV 88.4 (80.0-100.0) fL MCH 30.5 (25.0-35.0) pg MCHC 34.5 (31.0-37.0) g/dL RDW 12.8 (11.5-15.5) % Plt Count 246 (150-450) k/uL MPV 7.5 Neutrophils % 66 % Lymphocytes % 27 % Monocytes % 4 % Eosinophils % 0 % Basophils % 1 % Neutrophils # 5.9 (1.3-7.7) k/uL Lymphocytes # 2.4 (1.0-4.8) k/uL Monocytes # 0.4 (0-1.0) k/uL Eosinophils # 0.0 (0-0.7) k/uL Basophils # 0.1 (0-0.2) k/uL Sodium (137-145) mmol/L Potassium (3.5-5.1) mmol/L Chloride (98-107) mmol/L Carbon Dioxide (22-30) mmol/L Anion Gap mmol/L BUN (7-17) mg/dL Creatinine (0.52-1.04) mg/dL Est GFR (CKD-EPI)AfAm (>60 ml/min/1.73 sqM) Est GFR (CKD-EPI)NonAf (>60 ml/min/1.73 sqM) Glucose (74-99) mg/dL Calcium (8.4-10.2) mg/dL Total Bilirubin (0.2-1.3) mg/dL AST (14-36) U/L ALT (4-34) U/L Alkaline Phosphatase (38-126) U/L Total Protein (6.3-8.2) g/dL Albumin (3.5-5.0) g/dL Amylase (30-110) U/L Lipase (23-300) U/L Urine Color Yellow Urine Appearance Cloudy H (Clear) Urine pH 6.0 (5.0-8.0) Ur Specific [place] 1.024 (1.001-1.035) Urine Protein Negative (Negative) Urine Glucose (UA) Negative (Negative) Urine Ketones 1+ H (Negative) Urine Blood Negative (Negative) Urine Nitrite Negative (Negative) Urine Bilirubin Negative (Negative) Urine Urobilinogen <2.0 (<2.0) mg/dL Ur Leukocyte Esterase Moderate H (Negative) Urine RBC 1 (0-5) /hpf Urine WBC 3 (0-5) /hpf Ur Squamous Epith Cells 10 H (0-4) /hpf Urine Bacteria Rare H (None) /hpf Urine Mucus Moderate H (None) /hpf Urine HCG, Qual Not Detected (Not Detectd) 09/13/22 Range/Units 13:43 WBC (3.8-10.6) k/uL RBC (3.80-5.40) m/uL Hgb (11.4-16.0) gm/dL Hct (34.0-46.0) % MCV (80.0-100.0) fL MCH (25.0-35.0) pg MCHC (31.0-37.0) g/dL RDW (11.5-15.5) % Plt Count (150-450) k/uL MPV Neutrophils % % Lymphocytes % % Monocytes % % Eosinophils % % Basophils % % Neutrophils # (1.3-7.7) k/uL Lymphocytes # (1.0-4.8) k/uL Monocytes # (0-1.0) k/uL Eosinophils # (0-0.7) k/uL Basophils # (0-0.2) k/uL Sodium 141 (137-145) mmol/L Potassium 3.8 (3.5-5.1) mmol/L Chloride 104 (98-107) mmol/L Carbon Dioxide 28 (22-30) mmol/L Anion Gap 9 mmol/L BUN 16 (7-17) mg/dL Creatinine 0.65 (0.52-1.04) mg/dL Est GFR (CKD-EPI)AfAm >90 (>60 ml/min/1.73 sqM) Est GFR (CKD-EPI)NonAf >90 (>60 ml/min/1.73 sqM) Glucose 106 H (74-99) mg/dL Calcium 9.6 (8.4-10.2) mg/dL Total Bilirubin 0.7 (0.2-1.3) mg/dL AST 20 (14-36) U/L ALT 16 (4-34) U/L Alkaline Phosphatase 34 L (38-126) U/L Total Protein 7.4 (6.3-8.2) g/dL Albumin 5.1 H (3.5-5.0) g/dL Amylase 57 (30-110) U/L Lipase 90 (23-300) U/L Urine Color Urine Appearance (Clear) Urine pH (5.0-8.0) Ur Specific [place] (1.001-1.035) Urine Protein (Negative) Urine Glucose (UA) (Negative) Urine Ketones (Negative) Urine Blood (Negative) Urine Nitrite (Negative) Urine Bilirubin (Negative) Urine Urobilinogen (<2.0) mg/dL Ur Leukocyte Esterase (Negative) Urine RBC (0-5) /hpf Urine WBC (0-5) /hpf Ur Squamous Epith Cells (0-4) /hpf Urine Bacteria (None) /hpf Urine Mucus (None) /hpf Urine HCG, Qual (Not Detectd) Disposition Clinical Impression: Ovarian cyst, Pelvic pain Disposition: HOME SELF-CARE Condition: Stable Instructions (If sedation given, give patient instructions): Ovarian Cyst (ED) Additional Instructions: Please take the pain medication as directed. Follow up with your [facility]. You need a repeat ultrasound in 4 weeks. Return for any new or worsening symptoms Prescriptions: traMADol HCl [Ultram] 50 mg PO Q6H PRN #30 tab PRN Reason: Pain Is patient prescribed a controlled substance at d/c from ED?: Yes When asked, does pt state using other controlled substances?: No If opioid is for acute pain is fill amount 7 days or less?: No If Rx opioid, was Start Talking consent form obtained?: No Referrals: Jackie Dawson MD [Primary Care Provider] - 1-2 days Dereck Morris MD [Family Provider] - 1-2 days Time of Disposition: 17:19
== END 2022-09-13 17:25 | disposition home or self-care (01) ==
LOC: EC 13:17
DX: N83.202 Unspecified ovarian cyst, left side (principal); R10.2 Pelvic and perineal pain; J45.909 Unspecified asthma, uncomplicated; F41.9 Anxiety disorder, unspecified; F31.9 Bipolar disorder, unspecified; F17.200 Nicotine dependence, unspecified, uncomplicated; Z79.899 Other long term (current) drug therapy; Z88.8 Allergy status to other drugs, medicaments and biological substances
CPT/HCPCS: 36415; 76856; 80053; 81001; 81025; 82150; 83690; 85025; 93975; 99284

== ENCOUNTER 2023-01-15 07:43 | Emergency (ER) | payer OTHER ==
[2023-01-15 07:49] VITALS: TEMP 98.1
[2023-01-15] MEDS ORDERED: SODIUM CHLORIDE 0.9% 500 ML 500 ML IV ONE (08:04)
[2023-01-15] MEDS ORDERED: ONDANSETRON 4 MG/2 ML VIAL IVP STA (08:04)
[2023-01-15] MEDS ORDERED: SODIUM CHLORIDE 0.9% 1,000 ML IV ONE (08:04)
[2023-01-15 08:14] LABS: Basophils # (A) 0.1 k/uL (0-0.2); Basophils % (A) 1 %; Eosinophils % (A) 0 %; HCT 41.6 % (34.0-46.0); Lymphocytes # (A) 1.6 k/uL (1.0-4.8); Lymphocytes % (A) 22 %; MCHC 33.7 g/dL (31.0-37.0); MCV 88.9 fL (80.0-100.0); Monocytes # (A) 0.3 k/uL (0-1.0); Monocytes % (A) 4 %; Neutrophils # (A) 5.1 k/uL (1.3-7.7); Neutrophils % (A) 71 %; Platelet Count 295 k/uL (150-450); RBC 4.68 m/uL (3.80-5.40); RDW 12.6 % (11.5-15.5); WBC 7.1 k/uL (3.8-10.6)
--- NOTE | 2023-01-15 08:15 | ED ---
General Adult HPI - General Chief complaint: Nausea/Vomiting/Diarrhea Stated complaint: dehydration, weakness, heart palpitations Time Seen by Provider: 01/15/23 07:50 Source: patient, RN notes reviewed, old records reviewed Mode of arrival: ambulatory Limitations: no limitations - History of Present Illness Initial comments: This is a 27-year-old female who presents to the emergency department stating for the last 3 or 4 days she's been very nauseated to the point where she can't eat or drink anything. Patient states she has not vomited she's had no diarrhea. Patient denies any abdominal pain. Patient denies any fever chills. Patient denies any dysuria hematuria urinary frequency. Patient states she only occasionally smokes marijuana. Patient states she was told recently thyroid level was elevated. Patient states she hasn't had sex in quite a while so she doesn't believe she is . - Related Data Previous Rx's Medication Instructions Recorded traMADol HCl [Ultram] 50 mg PO Q6H PRN #30 tab 09/13/22 Ondansetron [Zofran] 4 mg PO Q8HR PRN #10 tab 01/15/23 Allergies Allergy/AdvReac Type Severity Reaction Status Date / Time No Known Allergies Allergy Verified 01/15/23 08:08 Review of Systems ROS Statement: Those systems with pertinent positive or pertinent negative responses have been documented in the HPI. ROS Other: All systems not noted in ROS Statement are negative. Past Medical History Past Medical History: Asthma, Syncope Additional Past Medical History / Comment(s): Mild intermittent asthma, endometriosis, polycystic ovarian syndrome, history of opioid addiction, states has scoliosis, intermittent tachycardia started during pregancy. See Dr. Menchaca's H&P. History of Any Multi-Drug Resistant Organisms: None Reported Past Surgical History: Orthopedic Surgery Additional Past Surgical History / Comment(s): LAPAROSCOPIC REMOVAL LT OVARIAN CYST X 3, knee surgery left. See Dr. Menchaca's H&P. Past Anesthesia/Blood Transfusion Reactions: No Reported Reaction Past Psychological History: Anxiety, Bipolar, Depression Smoking Status: Vaper Past Alcohol Use History: None Reported Past Drug Use History: None Reported - Past Family History Mother Family Medical History: Asthma, Coronary Artery Disease (CAD), Deep Vein Thrombosis (DVT), Thyroid Disorder Sister(s) Family Medical History: No Reported History Additional Family Medical History / Comment(s): She has 3 sisters with no major medical problems. She does not have any brothers. She does not have any children. General Exam - General Exam Comments Initial Comments: GENERAL: Patient is well-developed and well-nourished. Patient is nontoxic and well-h ydrated and is inte mild distress. ENT: Neck is soft and supple. No significant lymphadenopathy is noted. Oropharynx is clear. Moist mucous membranes. Neck has full range of motion without elicit ing any pain. EYES: The sclera were anicteric and conjunctiva were pink and moist. Extraocular m ovements were intact and pupils were equal round and reactive to light. Eyelids were unremarkable. PULMONARY: Unlabored respirations. Good breath sounds bilaterally. No audible rales rhonchi or wheezing was noted. CARDIOVASCULAR: There is a regular rate and rhythm without any murmurs gallops or rubs. ABDOMEN: Soft and nontender with normal bowel sounds. SKIN: Skin is clear with no lesions or rashes and otherwise unremarkable. NEUROLOGIC: Patient is alert and oriented x3. Cranial nerves II through XII are grossly intact. Motor and sensory are also intact. Normal speech, volume and content. Symmetrical smile. MUSCULOSKELETAL: Normal extremities with adequate strength and full range of motion. LYMPHATICS: No significant lymphadenopathy is noted PSYCHIATRIC: Normal psychiatric evaluation. Limitations: no limitations Course Vital Signs 01/15/23 07:44 Temperature 98.1 F Pulse Rate 116 H Respiratory 18 Rate Blood Pressure 128/84 O2 Sat by Pulse 98 Oximetry Medical Decision Making - Medical Decision Making EKG was interpreted by myself shows sinus rhythm at [address] interval is on a 36 dresses 72 QT interval 372 QTC is 413. Patient's EKG shows no ST segment elevation or depression. Was pt. sent in by a medical professional or institution (, PA, GEOTECHNICIAN, urgent care, hospital, or senior living...) When possible be specific @ -No Did you speak to anyone other than the patient for history (EMS, parent, family, police, friend...)? What history was obtained from this source @ -No Did you review nursing and triage notes (agree or disagree)? Why? @ -I reviewed and agree with nursing and triage notes Were old charts reviewed (outside hosp., previous admission, EMS record, old EKG, old radiological studies, urgent care reports/EKG's, senior living records)? Report findings @ -No old charts were reviewed Differential Diagnosis (chest pain, altered mental status, abdominal pain women, abdominal pain men, vaginal bleeding, weakness, fever, dyspnea, syncope, headache, dizziness, GI bleed, back pain, seizure, CVA, palpatations, mental health, musculoskeletal)? @ -Differential Abdominal Pain Women: Appendicitis, Cholecystitis, diverticulosis, ischemic bowel, pancreatitis, hepatitis, UTI, gastroenteritis, AAA, incarcerated hernia, bowel obstruction, constipation, inflammatory bowel, hepatitis, peptic ulcer disease, splenic infarction, perforated viscus, vulvitis, ovarian torsion, PID, kidney stone, placenta abruption, this is not meant to be an all-inclusive list EKG interpreted by me (3pts min.). @ -As above X-rays interpreted by me (1pt min.). @ -None done CT interpreted by me (1pt min.). @ -None done U/S interpreted by me (1pt. min.). @ -None done What testing was considered but not performed or refused? (CT, X-rays, U/S, labs)? Why? @ -None What meds were considered but not given or refused? Why? @ -None Did you discuss the management of the patient with other professionals (professionals i.e. , PA, GEOTECHNICIAN, lab, RT, psych nurse, secondary social studies teacher, career advisor, teacher, electronic warfare officer, director of casework department)? Give summary @ -No Was smoking cessation discussed for >3mins.? @ -No Was critical care preformed (if so, how long)? @ -No Were there social determinants of health that impacted care today? How? (Homelessness, low income, unemployed, alcoholism, drug addiction, transportation, low edu. Level, literacy, decrease access to med. care, senior care, rehab)? @ -No Was there de-escalation of care discussed even if they declined (Discuss DNR or withdrawal of care, Hospice)? DNR status @ -No What co-morbidities impacted this encounter? (DM, HTN, Smoking, COPD, CAD, Cancer, CVA, ARF, Chemo, Hep., AIDS, mental health diagnosis, sleep apnea, morbid obesity)? @ -None Was patient admitted / discharged? Hospital course, mention meds given and route , prescriptions, significant lab abnormalities, going to OR and other pertinent info. @ -Patient was given Zofran and 1/2 L of fluid and she was feeling considerably better. Patient states she does have a history of anxiety and wonders if this is all related to anxiety and asked for some Ativan. Patient 0.5 of Ativan IV and she will be discharged home to follow-up with her primary medical care doctor in the paper inspector. Undiagnosed new problem with uncertain prognosis? @ -No Drug Therapy requiring intensive monitoring for toxicity (Heparin, Nitro, Insulin, Cardizem)? @ -No Were any procedures done? @ -No Diagnosis/symptom? @ -Nausea Acute, or Chronic, or Acute on Chronic? @ -Acute Uncomplicated (without systemic symptoms) or Complicated (systemic symptoms)? @ -Uncomplicated Side effects of treatment? @ -No Exacerbation, Progression, or Severe Exacerbation? @ -No Poses a threat to life or bodily function? How? (Chest pain, [place], [place], pneumonia, PE, COPD, DKA, ARF, appy, cholecystitis, CVA, Diverticulitis, Homicidal, Suicidal, threat to staff... and all critical care pts) @ -No - Lab Data Result diagrams: 01/15/23 08:06 01/15/23 08:06 Lab Results 01/15/23 01/15/23 01/15/23 Range/Units 08:06 08:06 08:06 WBC 7.1 (3.8-10.6) k/uL RBC 4.68 (3.80-5.40) m/uL Hgb 14.0 (11.4-16.0) gm/dL Hct 41.6 (34.0-46.0) % MCV 88.9 (80.0-100.0) fL MCH 30.0 (25.0-35.0) pg MCHC 33.7 (31.0-37.0) g/dL RDW 12.6 (11.5-15.5) % Plt Count 295 (150-450) k/uL MPV 7.0 Neutrophils % 71 % Lymphocytes % 22 % Monocytes % 4 % Eosinophils % 0 % Basophils % 1 % Neutrophils # 5.1 (1.3-7.7) k/uL Lymphocytes # 1.6 (1.0-4.8) k/uL Monocytes # 0.3 (0-1.0) k/uL Eosinophils # 0.0 (0-0.7) k/uL Basophils # 0.1 (0-0.2) k/uL Sodium 140 (137-145) mmol/L Potassium 3.9 (3.5-5.1) mmol/L Chloride 103 (98-107) mmol/L Carbon Dioxide 25 (22-30) mmol/L Anion Gap 12 mmol/L BUN 27 H (7-17) mg/dL Creatinine 0.71 (0.52-1.04) mg/dL Est GFR (CKD-EPI)AfAm >90 (>60 ml/min/1.73 sqM) Est GFR (CKD-EPI)NonAf >90 (>60 ml/min/1.73 sqM) Glucose 85 (74-99) mg/dL Calcium 9.7 (8.4-10.2) mg/dL Magnesium 1.9 (1.6-2.3) mg/dL Total Bilirubin 1.0 (0.2-1.3) mg/dL AST 22 (14-36) U/L ALT 21 (4-34) U/L Alkaline Phosphatase 47 (38-126) U/L Total Protein 7.9 (6.3-8.2) g/dL Albumin 5.0 (3.5-5.0) g/dL TSH 0.448 L (0.465-4.680) mIU/L Free T4 1.29 (0.78-2.19) ng/dL Urine Color Light Yellow Urine Appearance Clear (Clear) Urine pH 5.5 (5.0-8.0) Ur Specific [place] 1.017 (1.001-1.035) Urine Protein Negative (Negative) Urine Glucose (UA) Negative (Negative) Urine Ketones 2+ H (Negative) Urine Blood Small H (Negative) Urine Nitrite Negative (Negative) Urine Bilirubin Negative (Negative) Urine Urobilinogen <2.0 (<2.0) mg/dL Ur Leukocyte Esterase Negative (Negative) Urine RBC 1 (0-5) /hpf Urine WBC 1 (0-5) /hpf Ur Squamous Epith Cells 4 (0-4) /hpf Urine Mucus Rare H (None) /hpf Urine HCG, Qual (Not Detectd) Urine Opiates Screen Not Detected (NotDetected) Ur Oxycodone Screen Not Detected (NotDetected) Urine Methadone Screen Not Detected (NotDetected) Ur Propoxyphene Screen Not Detected (NotDetected) Ur Barbiturates Screen Not Detected (NotDetected) U Tricyclic Antidepress Not Detected (NotDetected) Ur Phencyclidine Scrn Not Detected (NotDetected) Ur Amphetamines Screen Not Detected (NotDetected) U Methamphetamines Scrn Not Detected (NotDetected) U Benzodiazepines Scrn Not Detected (NotDetected) Urine Cocaine Screen Not Detected (NotDetected) U Marijuana (THC) Screen Detected H (NotDetected) 01/15/23 Range/Units 08:06 WBC (3.8-10.6) k/uL RBC (3.80-5.40) m/uL Hgb (11.4-16.0) gm/dL Hct (34.0-46.0) % MCV (80.0-100.0) fL MCH (25.0-35.0) pg MCHC (31.0-37.0) g/dL RDW (11.5-15.5) % Plt Count (150-450) k/uL MPV Neutrophils % % Lymphocytes % % Monocytes % % Eosinophils % % Basophils % % Neutrophils # (1.3-7.7) k/uL Lymphocytes # (1.0-4.8) k/uL Monocytes # (0-1.0) k/uL Eosinophils # (0-0.7) k/uL Basophils # (0-0.2) k/uL Sodium (137-145) mmol/L Potassium (3.5-5.1) mmol/L Chloride (98-107) mmol/L Carbon Dioxide (22-30) mmol/L Anion Gap mmol/L BUN (7-17) mg/dL Creatinine (0.52-1.04) mg/dL Est GFR (CKD-EPI)AfAm (>60 ml/min/1.73 sqM) Est GFR (CKD-EPI)NonAf (>60 ml/min/1.73 sqM) Glucose (74-99) mg/dL Calcium (8.4-10.2) mg/dL Magnesium (1.6-2.3) mg/dL Total Bilirubin (0.2-1.3) mg/dL AST (14-36) U/L ALT (4-34) U/L Alkaline Phosphatase (38-126) U/L Total Protein (6.3-8.2) g/dL Albumin (3.5-5.0) g/dL TSH (0.465-4.680) mIU/L Free T4 (0.78-2.19) ng/dL Urine Color Urine Appearance (Clear) Urine pH (5.0-8.0) Ur Specific [place] (1.001-1.035) Urine Protein (Negative) Urine Glucose (UA) (Negative) Urine Ketones (Negative) Urine Blood (Negative) Urine Nitrite (Negative) Urine Bilirubin (Negative) Urine Urobilinogen (<2.0) mg/dL Ur Leukocyte Esterase (Negative) Urine RBC (0-5) /hpf Urine WBC (0-5) /hpf Ur Squamous Epith Cells (0-4) /hpf Urine Mucus (None) /hpf Urine HCG, Qual Not Detected (Not Detectd) Urine Opiates Screen (NotDetected) Ur Oxycodone Screen (NotDetected) Urine Methadone Screen (NotDetected) Ur Propoxyphene Screen (NotDetected) Ur Barbiturates Screen (NotDetected) U Tricyclic Antidepress (NotDetected) Ur Phencyclidine Scrn (NotDetected) Ur Amphetamines Screen (NotDetected) U Methamphetamines Scrn (NotDetected) U Benzodiazepines Scrn (NotDetected) Urine Cocaine Screen (NotDetected) U Marijuana (THC) Screen (NotDetected) Disposition Clinical Impression: Nausea, Anxiety Disposition: HOME SELF-CARE Instructions (If sedation given, give patient instructions): Acute Nausea and Vomiting (ED), Anxiety (ED) Prescriptions: Ondansetron [Zofran] 4 mg PO Q8HR PRN #10 tab PRN Reason: Nausea Is patient prescribed a controlled substance at d/c from ED?: No Referrals: Jackie Dawson MD [Primary Care Provider] - 1-2 days Time of Disposition: 09:45
[2023-01-15 08:26] LABS: ALT 21 U/L (4-34); AST 22 U/L (14-36); African American GFR (CKD) >90 (>60 ml/min/1.73 sqM); Alkaline Phosphatase 47 U/L (38-126); Anion Gap 12 mmol/L; Blood Urea Nitrogen 27 mg/dL (7-17); Calcium 9.7 mg/dL (8.4-10.2); Carbon Dioxide 25 mmol/L (22-30); Chloride 103 mmol/L (98-107); Glucose 85 mg/dL (74-99); Magnesium 1.9 mg/dL (1.6-2.3); Non-African American GFR(CKD) >90 (>60 ml/min/1.73 sqM); Potassium 3.9 mmol/L (3.5-5.1); Sodium 140 mmol/L (137-145); Total Protein 7.9 g/dL (6.3-8.2)
[2023-01-15 09:20] LABS: Appearance,Urine Clear (Clear); Bilirubin,Urine Negative (Negative); Blood,Urine Small (Negative); Color,Urine Light Yellow; Glucose,Urine (UA) Negative (Negative); Leukocyte Esterase,Urine Negative (Negative); Mucus,Urine Rare /hpf; Nitrite,Urine Negative (Negative); PH, Urine 5.5 (5.0-8.0); Protein,Urine Negative (Negative); RBC,Urine 1 /hpf (0-5); Specific Gravity,Urine 1.017 (1.001-1.035); Squamous Epithelial Cell,Urine 4 /hpf (0-4); Urobilinogen,Urine <2.0 mg/dL (<2.0); WBC,Urine 1 /hpf (0-5)
[2023-01-15 09:27] LABS: T4, Free (Free Thyroxine) 1.29 ng/dL (0.78-2.19)
[2023-01-15 09:28] LABS: Ketones,Urine 2+ (Negative)
[2023-01-15 09:29] LABS: Amphetamine Screen,Urine Not Detected (NotDetected); Barbiturate Screen,Urine Not Detected (NotDetected); Benzodiazepines Screen,Urine Not Detected (NotDetected); Cocaine Screen,Urine Not Detected (NotDetected); Methadone Screen, Urine Not Detected (NotDetected); Opiate Screen,Urine Not Detected (NotDetected); Oxycodone Screen, Urine Not Detected (NotDetected); Phencyclidine Screen,Urine Not Detected (NotDetected); Tricyclic Antidepressant,Urine Not Detected (NotDetected); Urn Cannabinoid Scrn Detected (NotDetected)
[2023-01-15] MEDS ORDERED: LORazepam 2 MG/ML INJ IV STA (09:45)
[2023-01-15] MEDS ORDERED: LORazepam 1 MG TAB PO STA (10:08)
[2023-01-15 10:16] VITALS: BP 109/51; PULSE 95; RESP 16
== END 2023-01-15 10:16 | disposition home or self-care (01) ==
LOC: EC 07:43
DX: R11.0 Nausea (principal); F41.9 Anxiety disorder, unspecified; J45.20 Mild intermittent asthma, uncomplicated; F31.9 Bipolar disorder, unspecified; F17.290 Nicotine dependence, other tobacco product, uncomplicated
CPT/HCPCS: 36415; 93005; 84439; 80053; 84443; 83735; 85025; 81001; 81025; 80306; 99285; 96374; 96360; J2405; 96361

== ENCOUNTER 2023-03-25 07:59 | Emergency (ER) | payer OTHER ==
[2023-03-25 08:10] VITALS: BP 104/60; PULSE 88; RESP 20; TEMP 98.4
[2023-03-25] MEDS ORDERED: ONDANSETRON 4 MG/2 ML VIAL IVP STA (08:21)
[2023-03-25] MEDS ORDERED: SODIUM CHLORIDE 0.9% 1,000 ML IV STA (08:22)
[2023-03-25] MEDS ORDERED: MORPHINE SULFATE 4 MG/ML SYRINGE IVP STA (08:22)
--- NOTE | 2023-03-25 08:23 | ED ---
Abdominal Pain HPI - General Chief Complaint: Abdominal Pain Stated Complaint: Abd Pain, Vomitting Time Seen by Provider: 03/25/23 08:16 Source: patient, RN notes reviewed Mode of arrival: ambulatory Limitations: no limitations - History of Present Illness Initial Comments: Patient 27 year old female presenting to the emergency room with complaints of abdominal pain, nausea and vomiting all ongoing for approximately 24 hours along with associated dizziness this morning, occasional chills and generalized malaise. She denies any blood in her emesis or stool. She denies any known viral illness exposure. She is unable to identify any aggravating or alleviating factors and has had decreased intake over the last 24 hours due to her abdominal pain. She denies any chest pain, shortness of breath, headache, cough, congestion, urinary frequency, dysuria, or fevers. She has past medical history significant for asthma, polycystic ovarian syndrome and endometriosis. - Related Data Previous Rx's Medication Instructions Recorded traMADol HCl [Ultram] 50 mg PO Q6H PRN #30 tab 09/13/22 Ondansetron [Zofran] 4 mg PO Q8HR PRN #10 tab 01/15/23 Prochlorperazine [Compazine] 10 mg PO Q8H PRN 7 Days #21 tab 03/25/23 Allergies Allergy/AdvReac Type Severity Reaction Status Date / Time No Known Allergies Allergy Verified 03/25/23 08:09 Review of Systems ROS Statement: Those systems with pertinent positive or pertinent negative responses have been documented in the HPI. ROS Other: All systems not noted in ROS Statement are negative. Past Medical History Past Medical History: Asthma, Syncope Additional Past Medical History / Comment(s): Mild intermittent asthma, endometriosis, polycystic ovarian syndrome, history of opioid addiction, states has scoliosis, intermittent tachycardia started during pregancy. See Dr. Menchaca's H&P. History of Any Multi-Drug Resistant Organisms: None Reported Past Surgical History: Orthopedic Surgery Additional Past Surgical History / Comment(s): LAPAROSCOPIC REMOVAL LT OVARIAN CYST X 3, knee surgery left. See Dr. Menchaca's H&P. Past Anesthesia/Blood Transfusion Reactions: No Reported Reaction Past Psychological History: Anxiety, Bipolar, Depression Smoking Status: Vaper Past Alcohol Use History: None Reported Past Drug Use History: Marijuana - Past Family History Mother Family Medical History: Asthma, Coronary Artery Disease (CAD), Deep Vein Thrombosis (DVT), Thyroid Disorder Sister(s) Family Medical History: No Reported History Additional Family Medical History / Comment(s): She has 3 sisters with no major medical problems. She does not have any brothers. She does not have any children. General Exam - General Exam Comments Initial Comments: GENERAL: No acute distress, well developed, well nourished. HEENT: Normocephalic, atraumatic. Pupils equal, round, reactive to light. Moist mucous membranes. LUNGS: No respiratory distress. Clear to auscultation, no adventitious sounds, no use of accessory muscles. HEART: Regular rate and rhythm without murmur, rub, or gallop. ABDOMEN: Normal bowel sounds. Soft, non-distended. Slight right upper quadrant tenderness, no rebound tenderness or guarding. BACK: Normal inspection. EXTREMITIES: No edema. No tenderness. Moves all extremities. NEUROLOGIC: Alert & oriented x 3. CN II-XII grossly intact. PSYCHIATRIC: Normal affect and behavior. DERMATOLOGIC: Skin intact, without rashes or lesions noted. Limitations: no limitations Course Vital Signs 03/25/23 08:07 Temperature 98.4 F Pulse Rate 88 Respiratory 20 Rate Blood Pressure 104/60 O2 Sat by Pulse 98 Oximetry Medical Decision Making - Medical Decision Making Was pt. sent in by a medical professional or institution ([facility], CHARGEMASTER ANALYST, urgent care, hospital, or skilled nursing...) When possible be specific @ -No Did you speak to anyone other than the patient for history (EMS, parent, family, police, friend...)? What history was obtained from this source @ -No Did you review nursing and triage notes (agree or disagree)? Why? @ -I reviewed and agree with nursing and triage notes Were old charts reviewed (outside hosp., previous admission, EMS record, old EKG, old radiological studies, urgent care reports/EKG's, skilled nursing records)? Report findings @ -No old charts were reviewed Differential Diagnosis (chest pain, altered mental status, abdominal pain women, abdominal pain men, vaginal bleeding, weakness, fever, dyspnea, syncope, headache, dizziness, GI bleed, back pain, seizure, CVA, palpatations, mental health, musculoskeletal)? @ -Differential Abdominal Pain Women: Appendicitis, Cholecystitis, diverticulosis, ischemic bowel, pancreatitis, hepatitis, UTI, gastroenteritis, AAA, incarcerated hernia, bowel obstruction, constipation, inflammatory bowel, hepatitis, peptic ulcer disease, splenic infarction, perforated viscus, vulvitis, ovarian torsion, PID, kidney stone, placenta abruption, this is not meant to be an all-inclusive list EKG interpreted by me (3pts min.). @ -None done X-rays interpreted by me (1pt min.). @ -None done CT interpreted by me (1pt min.). @ -None done U/S (1pt. min.). @ -Ultrasound of gallbladder report per radiologist not interpreted by me no shadowing, mobile gallstone or ultrasound evidence of acute cholecystitis. What testing was considered but not performed or refused? (CT, X-rays, U/S, labs)? Why? @ -None What meds were considered but not given or refused? Why? @ -None Did you discuss the management of the patient with other professionals (prof cruz i.e. , PA, CHARGEMASTER ANALYST, lab, RT, psych nurse, healthcare social worker, behavior support specialist, teacher, sales and service officer, skilled nursing case manager)? Give summary @ -No Was smoking cessation discussed for >3mins.? @ -No Was critical care preformed (if so, how long)? @ -No Were there social determinants of health that impacted care today? How? (Homelessness, low income, unemployed, alcoholism, drug addiction, transportat ion, low edu. Level, literacy, decrease access to med. care, long-term, rehab)? @ -No Was there de-escalation of care discussed even if they declined (Discuss DNR or withdrawal of care, Hospice)? DNR status @ -No What co-morbidities impacted this encounter? (DM, HTN, Smoking, COPD, CAD, Cancer, CVA, ARF, Chemo, Hep., AIDS, mental health diagnosis, sleep apnea, morbid obesity)? @ -None Was patient admitted / discharged? Hospital course, mention meds given and route, prescriptions, significant lab abnormalities, going to OR and other pertinent info. @ - 27 year old female presenting to the emergency room with complaints of abdominal pain, nausea and vomiting all ongoing for approximately 24 hours along with associated dizziness this morning, occasional chills and generalized malaise. No blood in her emesis or stool. Right upper quadrant pain on exam. Will start workup for nausea, vomiting, diarrhea along with right upper quadrant pain with ultrasound of the gallbladder, CBC, amylase, lipase, CMP, urinalysis, urine and viral swabbing for COVID, influenza and RSV. Will give 1 L fluid bolus, morphine for pain and Zofran for nausea. Pain and improved with morphine but breakthrough nausea without vomiting after Zofran will give Compazine. CBC demonstrates no abnormalities CMP slightly elevated BUN 20 normal creatinine lactic acid 0.6. Alkaline Phosphate low 32 normal liver enzymes, amylase not and lipase normal. Urinalysis with epithelial cells present constantly small leukocyte Estrace secondary to to contamination and no nitrates or bacteria noted. Viral swabbing for Covid RSV and influenza on negative. Nausea improved with Compazine. Ultrasound of the abdomen negative for acute cholecystitis. Findings discussed with patient at length. No indication for further diagnostic imaging or laboratory studies. Encouraged good hydration along with use of anti-medic which will be prescribed to her pharmacy for symptoms. Advise follow-up with primary. Provider. Questions and concerns answered. Return parameters to the emergency room discussed. Will discharge home in stable condition with symptomatic management of nausea, vomiting, diarrhea and abdominal pain. Undiagnosed new problem with uncertain prognosis? @ -No Drug Therapy requiring intensive monitoring for toxicity (Heparin, Nitro, Insulin, Cardizem)? @ -No Were any procedures done? @ -No Diagnosis/symptom? @ -Nausea, vomiting, diarrhea Acute, or Chronic, or Acute on Chronic? @ -Acute Uncomplicated (without systemic symptoms) or Complicated (systemic symptoms)? @ -Uncomplicated Side effects of treatment? @ -No Exacerbation, Progression, or Severe Exacerbation? @ -No Poses a threat to life or bodily function? How? (Chest pain, [place], [place], pneumonia, PE, COPD, DKA, ARF, appy, cholecystitis, CVA, Diverticulitis, Homicidal, Suicidal, threat to staff... and all critical care pts) @ -No Case discussed with Dr. Yang - Lab Data Result diagrams: 03/25/23 08:24 03/25/23 08:24 Lab Results 03/25/23 03/25/23 03/25/23 Range/Units 08:24 08:24 08:24 WBC 5.0 (3.8-10.6) k/uL RBC 4.60 (3.80-5.40) m/uL Hgb 14.0 (11.4-16.0) gm/dL Hct 40.6 (34.0-46.0) % MCV 88.4 (80.0-100.0) fL MCH 30.5 (25.0-35.0) pg MCHC 34.5 (31.0-37.0) g/dL RDW 12.0 (11.5-15.5) % Plt Count 267 (150-450) k/uL MPV 6.6 Neutrophils % 65 % Lymphocytes % 24 % Monocytes % 5 % Eosinophils % 3 % Basophils % 0 % Neutrophils # 3.3 (1.3-7.7) k/uL Lymphocytes # 1.2 (1.0-4.8) k/uL Monocytes # 0.3 (0-1.0) k/uL Eosinophils # 0.1 (0-0.7) k/uL Basophils # 0.0 (0-0.2) k/uL Sodium 138 (137-145) mmol/L Potassium 3.9 (3.5-5.1) mmol/L Chloride 103 (98-107) mmol/L Carbon Dioxide 25 (22-30) mmol/L Anion Gap 10 mmol/L BUN 20 H (7-17) mg/dL Creatinine 0.71 (0.52-1.04) mg/dL Est GFR (CKD-EPI)AfAm >90 (>60 ml/min/1.73 sqM) Est GFR (CKD-EPI)NonAf >90 (>60 ml/min/1.73 sqM) Glucose 91 (74-99) mg/dL Plasma Lactic Acid Adriel (0.7-2.0) mmol/L Calcium 9.3 (8.4-10.2) mg/dL Total Bilirubin 0.7 (0.2-1.3) mg/dL AST 20 (14-36) U/L ALT 17 (4-34) U/L Alkaline Phosphatase 32 L (38-126) U/L Total Protein 7.2 (6.3-8.2) g/dL Albumin 4.5 (3.5-5.0) g/dL Amylase 57 (30-110) U/L Lipase 78 (23-300) U/L Urine Color Yellow Urine Appearance Cloudy H (Clear) Urine pH 6.0 (5.0-8.0) Ur Specific [place] 1.033 (1.001-1.035) Urine Protein 1+ H (Negative) Urine Glucose (UA) Negative (Negative) Urine Ketones Negative (Negative) Urine Blood Negative (Negative) Urine Nitrite Negative (Negative) Urine Bilirubin Negative (Negative) Urine Urobilinogen <2.0 (<2.0) mg/dL Ur Leukocyte Esterase Small H (Negative) Urine WBC 7 H (0-5) /hpf Ur Squamous Epith Cells 11 H (0-4) /hpf Urine Mucus Many H (None) /hpf Urine HCG, Qual (Not Detectd) Influenza Type A (PCR) (Not Detectd) Influenza Type B (PCR) (Not Detectd) RSV (PCR) (Not Detectd) SARS-CoV-2 (PCR) (Not Detectd) 03/25/23 03/25/23 03/25/23 Range/Units 08:24 08:24 10:00 WBC (3.8-10.6) k/uL RBC (3.80-5.40) m/uL Hgb (11.4-16.0) gm/dL Hct (34.0-46.0) % MCV (80.0-100.0) fL MCH (25.0-35.0) pg MCHC (31.0-37.0) g/dL RDW (11.5-15.5) % Plt Count (150-450) k/uL MPV Neutrophils % % Lymphocytes % % Monocytes % % Eosinophils % % Basophils % % Neutrophils # (1.3-7.7) k/uL Lymphocytes # (1.0-4.8) k/uL Monocytes # (0-1.0) k/uL Eosinophils # (0-0.7) k/uL Basophils # (0-0.2) k/uL Sodium (137-145) mmol/L Potassium (3.5-5.1) mmol/L Chloride (98-107) mmol/L Carbon Dioxide (22-30) mmol/L Anion Gap mmol/L BUN (7-17) mg/dL Creatinine (0.52-1.04) mg/dL Est GFR (CKD-EPI)AfAm (>60 ml/min/1.73 sqM) Est GFR (CKD-EPI)NonAf (>60 ml/min/1.73 sqM) Glucose (74-99) mg/dL Plasma Lactic Acid Adriel 0.6 L (0.7-2.0) mmol/L Calcium (8.4-10.2) mg/dL Total Bilirubin (0.2-1.3) mg/dL AST (14-36) U/L ALT (4-34) U/L Alkaline Phosphatase (38-126) U/L Total Protein (6.3-8.2) g/dL Albumin (3.5-5.0) g/dL Amylase (30-110) U/L Lipase (23-300) U/L Urine Color Urine Appearance (Clear) Urine pH (5.0-8.0) Ur Specific [place] (1.001-1.035) Urine Protein (Negative) Urine Glucose (UA) (Negative) Urine Ketones (Negative) Urine Blood (Negative) Urine Nitrite (Negative) Urine Bilirubin (Negative) Urine Urobilinogen (<2.0) mg/dL Ur Leukocyte Esterase (Negative) Urine WBC (0-5) /hpf Ur Squamous Epith Cells (0-4) /hpf Urine Mucus (None) /hpf Urine HCG, Qual Not Detected (Not Detectd) Influenza Type A (PCR) Not Detected (Not Detectd) Influenza Type B (PCR) Not Detected (Not Detectd) RSV (PCR) Not Detected (Not Detectd) SARS-CoV-2 (PCR) Not Detected (Not Detectd) Disposition Clinical Impression: Nausea, vomiting and diarrhea Disposition: HOME SELF-CARE Condition: Stable Instructions (If sedation given, give patient instructions): Acute Nausea and Vomiting (ED), Acute Diarrhea (ED) Additional Instructions: Utilize Compazine for nausea and vomiting as needed. Good hydration encouraged with water and sports electrolyte drinks. Please follow-up with your primary care provider. Please return to the Emergency Department if symptoms worsen or any other concerns. Prescriptions: Prochlorperazine [Compazine] 10 mg PO Q8H PRN 7 Days #21 tab PRN Reason: Nausea Is patient prescribed a controlled substance at d/c from ED?: No Referrals: Jackie Dawson MD [Primary Care Provider] - 1-2 days Time of Disposition: 10:52
[2023-03-25 08:48] LABS: Basophils % (A) 0 %; Eosinophils # (A) 0.1 k/uL (0-0.7); Eosinophils % (A) 3 %; HCT 40.6 % (34.0-46.0); Lymphocytes # (A) 1.2 k/uL (1.0-4.8); Lymphocytes % (A) 24 %; MCH 30.5 pg (25.0-35.0); MCHC 34.5 g/dL (31.0-37.0); MCV 88.4 fL (80.0-100.0); Mean Platelet Volume 6.6; Monocytes # (A) 0.3 k/uL (0-1.0); Monocytes % (A) 5 %; Neutrophils # (A) 3.3 k/uL (1.3-7.7); Neutrophils % (A) 65 %; Platelet Count 267 k/uL (150-450)
[2023-03-25 09:01] LABS: ALT 17 U/L (4-34); AST 20 U/L (14-36); African American GFR (CKD) >90 (>60 ml/min/1.73 sqM); Albumin 4.5 g/dL (3.5-5.0); Alkaline Phosphatase 32 U/L (38-126); Amylase 57 U/L (30-110); Anion Gap 10 mmol/L; Blood Urea Nitrogen 20 mg/dL (7-17); Calcium 9.3 mg/dL (8.4-10.2); Carbon Dioxide 25 mmol/L (22-30); Chloride 103 mmol/L (98-107); Glucose 91 mg/dL (74-99); Lipase 78 U/L (23-300); Non-African American GFR(CKD) >90 (>60 ml/min/1.73 sqM); Potassium 3.9 mmol/L (3.5-5.1); Sodium 138 mmol/L (137-145); Total Bilirubin 0.7 mg/dL (0.2-1.3); Total Protein 7.2 g/dL (6.3-8.2)
--- NOTE | 2023-03-25 09:24 | US ---
EXAMINATION TYPE: US gallbladder DATE OF EXAM: 03/25/2023 COMPARISON: CT abdomen and pelvis October 20, 2019 CLINICAL INDICATION: Female, 27 years old with history of ruq PAIN nausea vomiting; N/V/Abd pain TECHNIQUE: Multiple sonographic images of the right upper quadrant are obtained. FINDINGS: EXAM MEASUREMENTS: Liver Length: 14.8 cm Gallbladder Wall: 0.2 cm CBD: 0.3 cm Right Kidney: 10.2 x 5.2 x 4.2 cm Pancreas: wnl Liver: wnl Gallbladder: wnl Evidence for sonographic [place]'s sign: no CBD: wnl Right Kidney: wnl IMPRESSION: No shadowing mobile gallstones or ultrasound evidence for acute cholecystitis.
[2023-03-25] MEDS ORDERED: PROCHLORPERAZINE INJ 10 MG/2 ML VIAL IVP STA (09:50)
[2023-03-25 10:16] LABS: Appearance,Urine Cloudy (Clear); Bilirubin,Urine Negative (Negative); Blood,Urine Negative (Negative); Color,Urine Yellow; Glucose,Urine (UA) Negative (Negative); Ketones,Urine Negative (Negative); Leukocyte Esterase,Urine Small (Negative); Mucus,Urine Many /hpf; Nitrite,Urine Negative (Negative); Protein,Urine 1+ (Negative); Specific Gravity,Urine 1.033 (1.001-1.035); Squamous Epithelial Cell,Urine 11 /hpf (0-4); Urobilinogen,Urine <2.0 mg/dL (<2.0); WBC,Urine 7 /hpf (0-5)
== END 2023-03-25 11:19 | disposition home or self-care (01) ==
LOC: EC 07:59
DX: R11.2 Nausea with vomiting, unspecified (principal); R19.7 Diarrhea, unspecified; R10.11 Right upper quadrant pain; J45.20 Mild intermittent asthma, uncomplicated; F17.290 Nicotine dependence, other tobacco product, uncomplicated; F12.90 Cannabis use, unspecified, uncomplicated; Z20.822 Contact with and (suspected) exposure to COVID-19
CPT/HCPCS: 36415; 80053; 82150; 83605; 83690; 85025; 81001; 81025; 87636; 76705; 99284; 96374; 96375 ×2; 96361; J2270; J0780; J2405

== ENCOUNTER → 2023-07-26 | Outpatient (CLI) | payer OTHER ==
--- NOTE | 2023-07-26 22:58 | US ---
EXAMINATION TYPE: US pelvic complete DATE OF EXAM: 07/26/2023 COMPARISON: CLINICAL INDICATION: Female, 28 years old with history of N80.9 ENDOMETRIOSIS, UNSPECIFIED; left side pain. Hx ovarian cysts and hx left ovarian torsion. TECHNIQUE: Transabdominal (TA). Transabdominal sonographic images of the pelvis were acquired. Date of LMP: 07/16/2023, EXAM MEASUREMENTS: Uterus: 9.2 x 5.2 x 4.0 cm Endometrial Stripe: 0.7 cm Right Ovary: 3.7 x 1.6 x 1.4 cm Left Ovary: 5.8 x 5.1 x 3.9 cm 1. Uterus: Anteverted wnl 2. Endometrium: wnl 3. Right Ovary: follicles seen 4. Left Ovary: complex cyst - 5.3 x 4.5 x 3.8 cm Spectral, color and waveform doppler imaging shows good arterial and venous flow within the left ov holly; there is no evidence for ovarian torsion. 5. Bilateral Adnexa: no free fluid 6. Posterior cul-de-sac: trace fluid seen IMPRESSION: 1. Complex cyst left ovary. Follow-up exam following the next normal menstrual period is recommended. This should be followed to clearing
== END | disposition home or self-care (01) ==
LOC: RADUSWWP 12:50
PROVIDERS: ATTEND Obstetrics & Gynecology
DX: N83.202 Unspecified ovarian cyst, left side (principal); N80.9 Endometriosis, unspecified
CPT/HCPCS: 76856